=== PATIENT | male | born 1975 | race Caucasian/White ===

== ENCOUNTER 2017-07-22 22:43 | Emergency (ER) | payer MEDICAID, SELFPAY ==
[2017-07-22 22:44] VITALS: BP 139/87; PULSE 119; RESP 27; TEMP 38.1; O2SAT 95; BMI 45.0
--- NOTE | 2017-07-23 00:23 | ED.VISSUMM ---
- ER Visit Summary Date of Service: 07/23/17 Chief Complaint: [] Sore throat earache hoarce voice History of Present Illness: The patient is a 42 M [] complaining of sore throat. Laryngitis for the last 3 days gradual onset. No home treatment. He felt some chills. He does have sick contacts. He developed an abscess in his right posterior neck. He has had these in the past. He gets them frequently. No home treatment. No drainage. Physical Examination: Vital signs reviewed General: Well-nourished well-developed Head: Normocephalic atraumatic Eyes: Pupils equal round and reactive to light extraocular movements intact ENT: TMs clear no hemotympanum no trauma hoarse voice Neck: Nontender full range of motion Cardiovascular: Regular rate rhythm no murmurs normal S1-S2 Respiratory: No distress clear to auscultation bilaterally chest nontender Abdomen: Soft nontender nondistended normal bowel sounds no masses Back: Nontender no CVA tenderness Extremities: Nontender active range of motion ?4 extremities no trauma Skin: Clear neck has a boil. It measures 1 x 1. It is hard as a rock. There is no fluctuance. It is red. There is a central old ulceration. He has a small ulceration on the other side of his neck that is not infected. Neuro alert oriented cranial nerves II through XII intact normal strength sensation reflexes Test Results: [] Emergency Department Course and Treatment: This time I do not feel there is anything to and size. It is very hard. I do not feel the bloody drainage. He will use warm compresses to try to soften it up. Given Bactrim and Keflex. At this time I also think he has a laryngitis upper respiratory infection. Given oxycodone and Tylenol. This will have to run its course. Treatment Plan: [] Disposition: [] Impression: [] Upper respiratory infection with laryngitis Neck boil This note was generated with [employer] dictation software. It may contain incorrect words, spelling, and punctuation that were not noted in review of the chart prior to signing ED Disposition - Plan for ED Patient: Chief Complaint: General Illness Referrals: Care Physician,No Primary [Primary Care Provider] -
--- NOTE | 2017-07-23 00:26 | ED.DEP ---
ED Disposition - Plan for ED Patient: Disposition: Home or Assisted Living Chief Complaint: General Illness Instructions: ED Staph Infec Abx Tx Only, ED Laryngitis Prescriptions: Oxycodone HCl/Acetaminophen [Percocet 5/325] 1 tab PO Q6H PRN PRN 3 Days #12 tab PRN Reason: Pain Cephalexin [Keflex] 500 mg PO Q6 #40 capsule Smz/Tmp Ds [Bactrim Ds] 2 tablet PO BID #40 tablet Referrals: Care Physician,No Primary [Primary Care Provider] - Tyrone Samson [[facility]] -
[2017-07-23] MEDS: Acetaminophen 500 MG Tablet 1000 MG PO (00:40)
[2017-07-23] MEDS: Smz/Tmp Ds Tablet 2 TABLET PO (00:40)
[2017-07-23] MEDS: oxyCODONE 5 MG Tablet PO (00:40)
[2017-07-23] MEDS: Cephalexin 250 MG Capsule 500 MG PO (00:40)
[2017-07-23 00:41] VITALS: PULSE 76; RESP 20; O2SAT 97
== END 2017-07-23 00:42 | disposition home or self-care (01) ==
PROVIDERS: Emergency Provider Emergency Medicine
DX: J06.9 Acute upper respiratory infection, unspecified (principal); J04.0 Acute laryngitis; L02.12 Furuncle of neck; E66.9 Obesity, unspecified; Z72.0 Tobacco use
CPT/HCPCS: 99283

== ENCOUNTER 2019-04-25 20:44 | Emergency (ER) | payer SELFPAY ==
[2019-04-25 20:45] VITALS: BP 165/98; PULSE 107; RESP 22; TEMP 38.4; O2SAT 96; BMI 47.0
--- NOTE | 2019-04-25 21:03 | ED.VIS.GEN ---
History of Present Illness Chief Complaint: Cold Sx Informant: Patient Onset: Weeks - Week and a half Context: Gradual Onset Timing: Waxes and wanes Current Severity: Moderate Maximum Severity: Moderate Narrative: Patient presents with cough, congestion, fever, intermittent vomiting and diarrhea for the past week and a half. Patient states he will finally start to feel better only to relapse and get worsening symptoms again. He is coughing up yellow sputum. He has been taking Mucinex. - Past Medical History (1) Sleep apnea Status: Chronic (2) Kidney stone Status: Resolved (3) Anxiety Status: Chronic Past Medical History - Allergies and Home Meds Allergies/Adverse Reactions: Allergies No Known Allergies Allergy (Verified 07/22/17 22:43) Primary Care Physician: Care Physician,No Primary [Primary Care Provider] - Prior records reviewed: Yes Smoking Status: Current some day smoker Review of Systems General: Reports: Fever Eyes: Denies: Visual changes - bilaterally ENT: Reports: Rhinorrhea, Sore throat. Denies: Bilateral ear pain Cardiovascular: Denies: Chest pain Respiratory: Reports: Dyspnea, Cough, - - Occasional wheezing Gastrointestinal: Reports: Nausea, Vomiting, Diarrhea Genitourinary: Denies: Dysuria Musculoskeletal: Denies: Swelling, Extremity Pain Skin: Denies: Rash Neurological: Denies: Headache Psych: Denies: Depression Allergy: Denies: Uticaria Physical Exam Vital Signs/Narrative: Vital Signs Temp Pulse Resp BP Pulse Ox 04/25/19 20:45 101.1 F H 107 H 22 H 165/98 H 96 Inital Vital Signs reviewed: Yes General: Well nourished, Well developed Head: Normocephalic Eyes: Perrl, EOMI ENT: Moist mucous membranes, TM's clear, - - 1+ tonsils. Posterior pharyngeal drainage. Neck: Supple Cardiovascular: Tachycardia Respiratory: No distress, CTA bilaterally Abdomen: Soft, Nontender, Hypoactive bowel sounds Extremities: Nontender Skin: Normal color Neurological: Alert, Oriented x3 Psychological: Normal affect Diagnostic/Tx/Re-eval Impressions Chest X-Ray 04/25/19 21:32 IMPRESSION: 1. Left upper lobe pneumonia. 2. Mild cardiac enlargement. Electronically Signed: Kari Collins MD at 22:01 EST Tel , Service support , 04/25/19 21:32 Chest PA and Lateral [RAD] Stat Laboratory Results 04/25/19 04/25/19 21:15 21:15 WBC 7.7 RBC 4.52 L Hgb 12.5 L Hct 39.1 L MCV 86.5 MCH 27.7 MCHC 32.0 RDW Std Deviation 46.6 H RDW Coeff of Adair 14.6 Plt Count 195 MPV 9.1 Immature Gran % (Auto) 0.400 Neut % (Auto) 78.6 H Lymph % (Auto) 12.3 L [place] % (Auto) 6.0 Eos % (Auto) 2.6 Baso % (Auto) 0.1 Absolute Neuts (auto) 6.1 Absolute Lymphs (auto) 0.95 Nucleated RBC % 0 Sodium 139 Potassium 4.3 Chloride 105 Carbon Dioxide 29.0 Anion Gap 5 BUN 16 Creatinine 0.96 Estim Creat Clear Calc 105.53 Est GFR (MDRD) Af Amer 108 Est GFR (MDRD) Non-Af 89 BUN/Creatinine Ratio 16.6 Glucose 111 H Calcium 8.1 L - EKG Initial EKG Interpretation: Sinus Rhythm - Sinus at 91 no acute ischemia. QTC is 447. - Medical Decision Making Patient is given Toradol, Zofran, Tylenol, and IV fluids. Chest x-ray results are reviewed with him. Radiologist believes there is an early left upper lobe infiltrate. He will be treated with a course of Levaquin, first dose given here. He was not tested for influenza as his symptoms of been ongoing for a week and a half. ED Disposition - Plan for ED Patient: Disposition: Home or Assisted Living Diagnosis: Pneumonia Instructions: PNEUMONIA (Adult) Prescriptions: Levofloxacin [Levaquin] 750 mg PO DAILY #4 tab Transmission Status: Pending to [facility] Referrals: Jaida Kwong MD [STAFF PHYSICIAN] - 1-2 Weeks
[2019-04-25] MEDS: Acetaminophen 500 MG Tablet 1000 MG PO (21:20)
[2019-04-25] MEDS: Ondansetron 4 MG/2 ML Vial IV (21:20)
[2019-04-25] MEDS: 0.9% Normal Saline 1,000 ML 1000 ML IV (21:20)
[2019-04-25] MEDS: Ketorolac 30 MG/ML Syringe IV (21:20)
[2019-04-25 21:25] LABS: Absolute Lymphocyte Count 0.95 X10^3/uL (0.83-4.51); Absolute Neutrophil Count 6.1 X10^3/uL (2.0-7.7); Basophil# 0.01 X10^3/uL; Basophil% 0.1 % (0-1); Eosinophils% 2.6 % (0-5); Hematocrit 39.1 % (40-54); Hemoglobin 12.5 g/dL (13.0-16.5); Lymphocyte # 0.95 X10^3/ul (4.0); Lymphocyte % 12.3 % (19-41); Mean Corpuscular Hgb 27.7 pg (27.0-32.0); Mean Corpuscular Volume 86.5 fL (80-94); Mean Platelet Vol. 9.1 fl (6.2-12.0); Monocyte# 0.46 X10^3/uL; NRBC Flagged by Analyzer 0 % (0-5); Neutrophil # 6.08 X10^3/uL (2.7-7.7); Neutrophil % 78.6 % (47-70); Platelet Count 195 K/mm3 (150-450); RBC Distribution Width CV 14.6 % (11.6-14.6); RBC Distribution Width SD 46.6 fl (35.1-43.9); Red Blood Count 4.52 M/mm3 (4.6-6.2); White Blood Count 7.7 K/mm3 (4.4-11.0)
--- NOTE | 2019-04-25 21:32 | RAD_ITS ---
STUDY: X-RAY CHEST REASON FOR EXAM: Male, 44 years old. Cough with congestion TECHNIQUE: PA and lateral chest. COMPARISON: None. FINDINGS: Suboptimal lateral view due to motion artifact. No pleural effusion. Hazy opacity in the left mid lung, suspicious for pneumonia. There is mild cardiac enlargement. Normal mediastinum and apolinar. Normal visualized pulmonary arteries. Normal visualized aortic arch and descending thoracic aorta. Mild thoracic spondylosis. Soft tissues and bony structures are otherwise unremarkable. RAD/Chest PA and Lateral IMPRESSION: 1. Left upper lobe pneumonia. 2. Mild cardiac enlargement. Electronically Signed: Kari Collins MD at 22:01 EST Tel , Service support ,
[2019-04-25 21:34] LABS: Anion Gap 5 (5-15); BUN 16 mg/dL (7-18); BUN/Creat Ratio 16.6 RATIO (10-20); Calcium,Total 8.1 mg/dL (8.5-10.1); Chloride 105 mmol/L (98-107); Creatinine, Serum 0.96 mg/dL (0.70-1.30); EST Glomerular Filtration Rate 89 mL/min (>60); Est Glom Filt Rate - Afr Amer 108 mL/min (>60); Estimated Creatinine Clearance 105.53 ml/min; Glucose 111 mg/dL (74-106); Potassium 4.3 mmol/L (3.5-5.1); Sodium Level 139 mmol/L (136-145)
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
[2019-04-25 22:18] VITALS: TEMP 37.7
[2019-04-25] MEDS: levoFLOXacin 750 MG Tablet PO (22:31)
== END 2019-04-25 22:33 | disposition home or self-care (01) ==
PROVIDERS: Emergency Provider Emergency Medicine
DX: J18.9 Pneumonia, unspecified organism (principal); I51.7 Cardiomegaly; Z87.442 Personal history of urinary calculi; F17.200 Nicotine dependence, unspecified, uncomplicated
CPT/HCPCS: 71046; 80048; 85025; 93005; 96361; 96374; 96375; 99284; J7030; J2405

== ENCOUNTER 2021-04-06 20:52 | Emergency (ER) | payer BC, SELFPAY ==
[2021-04-06 20:53] VITALS: BP 176/118; PULSE 120; RESP 20; TEMP 36.7; O2SAT 96; BMI 47.9
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
[2021-04-06 21:14] LABS: Absolute Lymphocyte Count 1.83 X10^3/uL (0.83-4.51); Absolute Neutrophil Count 5.3 X10^3/uL (2.0-7.7); Basophil# 0.04 X10^3/uL; Basophil% 0.5 % (0-1); Eosinophil# 0.17 X10^3/uL; Eosinophils% 2.2 % (0-5); Hemoglobin 13.6 g/dL (13.0-16.5); Lymphocyte # 1.83 X10^3/ul (0.83-4.51); Lymphocyte % 23.3 % (19-41); Mean Corp Hgb Conc 32.4 g/dL (32-36); Mean Corpuscular Hgb 27.4 pg (27.0-32.0); Mean Corpuscular Volume 84.5 fL (80-94); Mean Platelet Vol. 9.2 fl (6.2-12.0); Monocyte# 0.48 X10^3/uL; Monocyte% 6.1 % (0-10); NRBC Flagged by Analyzer 0 % (0-5); Neutrophil % 67.5 % (47-70); Platelet Count 326 K/mm3 (150-450); RBC Distribution Width CV 14.6 % (11.6-14.6); RBC Distribution Width SD 45.1 fl (35.1-43.9); Red Blood Count 4.97 M/mm3 (4.6-6.2); White Blood Count 7.9 K/mm3 (4.4-11.0)
[2021-04-06 21:22] LABS: International Normalized Ratio 0.9; Prothrombin Time (Protime)PT. 11.8 SECONDS (11.7-14.9)
[2021-04-06 21:33] LABS: AST(SGOT) 21 U/L (15-37); Alanine Aminotransfer ALT/SGPT 37 U/L (16-61); Albumin, Serum 3.6 g/dL (3.2-5.0); Alkaline Phosphatase 76 U/L (45-117); Anion Gap 6 (5-15); BUN 21 mg/dL (7-18); BUN/Creat Ratio 22.3 RATIO (10-20); Bilirubin, Direct 0.06 mg/dL (0.00-0.30); Calcium,Total 8.9 mg/dL (8.5-10.1); Chloride 105 mmol/L (98-107); Creatinine, Serum 0.94 mg/dL (0.70-1.30); EST Glomerular Filtration Rate 91 mL/min (>60); Est Glom Filt Rate - Afr Amer 110 mL/min (>60); Estimated Creatinine Clearance 105.48 ml/min; Globulin 4.7 g/dL (2.2-4.2); Glucose 138 mg/dL (74-106); Potassium 4.1 mmol/L (3.5-5.1); Protein, Total 8.3 g/dL (6.4-8.2); Sodium Level 139 mmol/L (136-145)
[2021-04-06] MEDS: 0.9% Normal Saline 1,000 ML 999 ML IV (22:11)
[2021-04-06] MEDS: fentaNYL 100 MCG/2 ML Ampul 25 MCG IV (22:15)
[2021-04-06] MEDS: Piperacil/Tazobactam 3.375 GM/50 ML ML IV (22:48)
[2021-04-06 22:57] VITALS: BP 116/90; PULSE 95; RESP 20; O2SAT 99
--- NOTE | 2021-04-06 23:48 | NURSING ---
[facility] HAD TO CANCEL [facility] DUE TO ANOTHER CALL. THEY ARE PROVIDING [facility] WHICH SHOULD BE HERE WITHIN AN HOUR.
[2021-04-07] VITALS: BP 163/99; PULSE 103; RESP 19; O2SAT 99
[2021-04-07] MEDS: Morphine 4 MG/ML Syringe IV (00:26)
== END 2021-04-07 01:40 | disposition short-term general hospital (02) ==
LOC: ED 21:41
PROVIDERS: Emergency Provider Student in an Organized Health Care Education/Training Program
DX: S31.639A Puncture wound without foreign body of abdominal wall, unspecified quadrant with penetration into peritoneal cavity, initial encounter (principal); X99.1XXA Assault by knife, initial encounter; Y93.9 Activity, unspecified; Y92.89 Other specified places as the place of occurrence of the external cause; Y99.8 Other external cause status; E66.9 Obesity, unspecified; J44.9 Chronic obstructive pulmonary disease, unspecified; Z87.891 Personal history of nicotine dependence
CPT/HCPCS: 71260; 74177; 80048; 80076; 82077; 85025; 85610; 86850; 86900; 86901; 93005; 96361; 96365; 96375; 99285; Q9967; A4216

== ENCOUNTER 2021-05-21 06:32 | Emergency (ER) | payer BC, SELFPAY ==
[2021-05-21 06:34] VITALS: BP 184/116; PULSE 102; RESP 23; TEMP 36.8; O2SAT 95; BMI 47.3
--- NOTE | 2021-05-21 06:40 | EKG12_ITS ---
Test Reason : SOB Blood Pressure : / mmHG Vent. Rate : 101 BPM Atrial Rate : 101 BPM P-R Int : 166 ms QRS Dur : 106 ms QT Int : 366 ms P-R-T Axes : 022 -15 027 degrees QTc Int : 474 ms Sinus tachycardia Inferior infarct , age undetermined Abnormal ECG Confirmed by MARI AEUGENIA IGLESIAS, AVIVA ([id number]), non linear editor JORGE FOSTER ([id number]) on 05/22/2021 10:14:07 AM Referred By: FARSHAD Confirmed By:AVIVA DEL CID MD
--- NOTE | 2021-05-21 06:40 | RAD_ITS ---
EXAM: XR Chest, 1 View CLINICAL INDICATION: 46 years old, Male; dyspnea TECHNIQUE: Frontal view of the chest. This report was created using [employer] report generation technology. COMPARISON: XR Chest dated 04/25/2019 FINDINGS: Lungs and pleural spaces: Mild bibasilar infiltrates or atelectasis. Shallow inspiration. No pneumothorax. No effusion. Heart: Unremarkable. Cardiac silhouette not enlarged. Mediastinum: Central airways and mediastinal contour are unremarkable. Bones/joints: Unremarkable. Soft tissues: Unremarkable. RAD/Chest 1 View (Portable) IMPRESSION: Mild bibasilar infiltrates or atelectasis. Electronically Signed: Wili Betts MD at 7:44 EST ,
[2021-05-21 06:44] VITALS: O2SAT 95
[2021-05-21 07:08] LABS: Absolute Lymphocyte Count 1.54 X10^3/uL (0.83-4.51); Absolute Neutrophil Count 6.2 X10^3/uL (2.0-7.7); Basophil# 0.03 X10^3/uL; Basophil% 0.3 % (0-1); Eosinophil# 0.28 X10^3/uL; Eosinophils% 3.3 % (0-5); Hematocrit 37.9 % (40-54); Hemoglobin 12.2 g/dL (13.0-16.5); Lymphocyte # 1.54 X10^3/ul (0.83-4.51); Lymphocyte % 17.9 % (19-41); Mean Corp Hgb Conc 32.2 g/dL (32-36); Mean Corpuscular Volume 83.8 fL (80-94); Mean Platelet Vol. 9.1 fl (6.2-12.0); Monocyte# 0.46 X10^3/uL; Monocyte% 5.4 % (0-10); NRBC Flagged by Analyzer 0 % (0-5); Neutrophil # 6.21 X10^3/uL (2.7-7.7); Neutrophil % 72.4 % (47-70); Platelet Count 274 K/mm3 (150-450); RBC Distribution Width CV 14.9 % (11.6-14.6); RBC Distribution Width SD 45.1 fl (35.1-43.9); Red Blood Count 4.52 M/mm3 (4.6-6.2); White Blood Count 8.6 K/mm3 (4.4-11.0)
[2021-05-21 07:15] VITALS: PULSE 108; RESP 28
[2021-05-21] MEDS: Albuterol 2.5 MG/3 ML VIAL.NEB. INHALATION (07:15)
[2021-05-21] MEDS: Ipratropium/Albuterol Sulfate 3 ML AMPUL.NEB 6 ML INHALATION (07:15)
[2021-05-21] MEDS: LORazepam 2 MG/ML Syringe 0.5 MG IV ×2 (07:16→08:03)
[2021-05-21] MEDS: MethylPREDNISolone 125 MG/2 ML Vial IV (07:16)
[2021-05-21 07:34] LABS: Anion Gap 6 (5-15); BUN 16 mg/dL (7-18); BUN/Creat Ratio 20.4 RATIO (10-20); Calcium,Total 8.4 mg/dL (8.5-10.1); Chloride 104 mmol/L (98-107); Creatinine, Serum 0.78 mg/dL (0.70-1.30); EST Glomerular Filtration Rate 112 mL/min (>60); Est Glom Filt Rate - Afr Amer 135 mL/min (>60); Estimated Creatinine Clearance 127.12 ml/min; Glucose 173 mg/dL (74-106); Potassium 3.8 mmol/L (3.5-5.1); Sodium Level 135 mmol/L (136-145); Troponin-I HS 15 pg/mL (3.0-78.0)
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
--- NOTE | 2021-05-21 07:45 | EDS_ITS ---
HPI History of Present Illness Chief Complaint: Shortness of Breath Narrative Narrative: Patient is a 46-year-old male who states that he had surgery for internal bleeding about 5 weeks ago. He states that he returned to work about 1 week ago and after that developed some nasal congestion and sore throat. He states this has progressed to cough and this morning shortness of breath. He states he got to the point where he felt like he was going to pass out and secondary to this called EMS to bring him in for evaluation. He states he is vaccinated against Covid and he denies any smoking or vaping history and denies any need for supplemental oxygen. PFSH PFSH Home Medications albuterol sulfate [Ventolin HFA] 1 - 2 puff INHALATION Q4H PRN PRN #1 device 05/21/21 [Rx Last Taken Unknown] azelastine 2 spray INTRANASAL BID #30 ml 05/21/21 [Rx Last Taken Unknown] prednisone 40 mg PO DAILY 5 Days #10 tab 05/21/21 [Rx Last Taken Unknown] promethazine-codeine 5 ml PO Q6H PRN 7 Days #140 ml 05/21/21 [Rx Last Taken Unknown] Allergy/AdvReac Type Severity Reaction Status Date / Time sulfamethoxazole Allergy Hives Verified 04/06/21 20:53 [From Bactrim] trimethoprim [From Bactrim] Allergy Hives Verified 04/06/21 20:53 Social History Smoking Status: Former smoker ROS [facility] ED Constitutional Constitutional ED: Denies chills or fever(s) ENT ENT ED: Reports rhinorrhea and sore throat Cardiovascular Cardiovascular: Denies chest pain Respiratory/Chest Respiratory/Chest: Reports cough and dyspnea Gastrointestinal Gastrointestinal: Denies abdominal pain, diarrhea, nausea or vomiting Genitourinary Genitourinary ED: Denies dysuria Musculoskeletal Musculoskeletal: Denies myalgias Integumentary Denies rash Neurologic Neurologic: Denies headache(s) Psychiatric Psychiatric: Reports anxiety Hematologic/Lymphatic Hematologic/Lymphatic: Denies easy bleeding or easy bruising EXAM Physical Exam Const Vital Signs: 05/21/21 06:34 05/21/21 06:44 05/21/21 07:15 Temperature 98.2 F Temperature Source Temporal Pulse Rate 102 H 108 H Respiratory Rate 23 H 28 H Respiratory Effort Normal Non-Labored Respiratory Depth Normal Respiratory Pattern Normal Normal Blood Pressure 184/116 H Blood Pressure Mean 138 Pulse Ox 95 Oxygen Delivery Method Room Air Room Air Positive well nourished, well developed and obese General Appearance ED: well developed Nutritional Appearance: obese HEENT Reports moist mucous membranes HEENT Narrative: Patient has purulent discharge from bilateral nares and cobblestoning the posterior pharynx consistent with sinus drainage but no airway edema or compromise Eyes PERRL and EOMs intact bilaterally Neck supple and no JVD Neck Narrative: Positive anterior cervical lymphadenopathy noted Chest Wall palpation of chest normal Resp Resp Narrative: Patient has mild respiratory distress with tachypnea and slight accessory muscle use. Breath sounds are diminished throughout with diffuse inspiratory and expiratory wheezes. Cardio regular rhythm Rate: tachycardic and other Other Details: Radial pulses are +2-4 bilaterally are equal and symmetric GI normal to inspection, nondistended, normoactive bowel sounds, non-tender, non- distended and no masses GI Narrative: No voluntary guarding or rigidity no pulsatile mass Auscultation: normoactive bowel sounds Palpation: soft Extremity normal to inspection Extremity Narrative: No asymmetric edema no pitting edema negative Homans' sign bilaterally Neuro oriented x3 and CN's II-XII intact bilaterally Sensorium / Orientation: alert Motor Exam: strength 5/5 throughout Psych Psych Narrative: Nervous/anxious affect Mood & Affect: anxious Skin no rashes or lesions noted MDM MDM MDM Narrative Medical decision making narrative: Patient presented to the ER in mild respiratory distress with tachypnea and slight accessory muscle use. He also had wheezing consistent with an inflammatory process within the lung. With his congestion and sore throat there is concern he could have developed Covid or even a pneumonia so basic blood work with a rapid Covid swab and chest x-ray were ordered. Blood work revealed no clinically significant finding. Chest x- ray questioned infiltrate versus atelectasis. Patient is afebrile he does not have a white count and his respirations have been mildly shallow therefore I feel this is atelectasis and not bacterial infection. The patient had symptom improvement with steroids and breathing treatments but on reevaluation still feels short of breath. With his recent surgery about 5 weeks ago I did elect to perform a CTA of his chest to rule out pulmonary embolus. His troponin initially is normal but a delta troponin will be obtained as well based on his s ymptoms. I do believe that if the patient's CTA does not reveal any acute finding and his delta troponin is normal he is safe for discharge with symptomatic medications. Lab Data Attestation: I reviewed the patient's lab results. Labs: Laboratory Results - last 24 hr 05/21/21 05/21/21 07:00 07:00 WBC 8.6 RBC 4.52 L Hgb 12.2 L Hct 37.9 L MCV 83.8 MCH 27.0 MCHC 32.2 RDW Std Deviation 45.1 H RDW Coeff of Adair 14.9 H Plt Count 274 MPV 9.1 Immature Gran % (Auto) 0.700 Neut % (Auto) 72.4 H Lymph % (Auto) 17.9 L [place] % (Auto) 5.4 Eos % (Auto) 3.3 Baso % (Auto) 0.3 Absolute Neuts (auto) 6.2 Absolute Lymphs (auto) 1.54 Nucleated RBC % 0 Sodium 135 L Potassium 3.8 Chloride 104 Carbon Dioxide 25.0 Anion Gap 6 BUN 16 Creatinine 0.78 Estim Creat Clear Calc 127.12 Est GFR (MDRD) Af Amer 135 Est GFR (MDRD) Non-Af 112 BUN/Creatinine Ratio 20.4 H Glucose 173 H Calcium 8.4 L Magnesium 2.0 Troponin I High Sens 15 Radiography Diagnostic Testing: Clinical Impression(s) from Imaging Studies Chest X-Ray 05/21/21 06:40 IMPRESSION: Mild bibasilar infiltrates or atelectasis. Electronically Signed: Wili Betts MD at 7:44 EST , Discharge Plan Triage Chief Complaint: Shortness of Breath ED Provider: Meng You Dx/Rx/DC Orders Clinical Impression: Viral upper respiratory illness, Dyspnea Instructions: ED URI, Viral W/ Wheezing (Adult) Prescriptions: New azelastine 137 mcg (0.1 %) aerosol,spray 2 spray intranasal BID Qty: 30 RF: 0 prednisone 20 mg tablet 40 mg PO DAILY 5 Days Qty: 10 RF: 0 albuterol sulfate [Ventolin HFA] 90 mcg/actuation HFA aerosol inhaler 1 - 2 puff inhalation Q4H PRN PRN (Reason: Wheezing) Qty: 1 RF: 0 promethazine-codeine 6.25-10 mg/5 mL syrup 5 ml PO Q6H PRN (Reason: cough) 7 Days Qty: 140 RF: 0 Referrals: Jaida Kwong MD [STAFF PHYSICIAN] - 1 Week if not improving Disposition Disposition: Home, Self Care
[2021-05-21] MEDS: Sodium Chloride 3% 500 ML IV.SOLN. INHALATION (08:03)
[2021-05-21 08:10] LABS: BNP,B-Type NATRIURETIC PEPTIDE 19.9 pg/mL (0-100)
[2021-05-21 08:13] LABS: International Normalized Ratio 0.9
[2021-05-21 08:14] LABS: Partial Thromboplast Time 30.3 Seconds (24.1-36.2)
[2021-05-21 08:28] LABS: Troponin-I HS 16 pg/mL (3.0-78.0)
[2021-05-21 09:30] LABS: Troponin-I HS 17 pg/mL (3.0-78.0)
[2021-05-21 09:50] VITALS: BP 171/96; PULSE 94; RESP 20; O2SAT 94
== END 2021-05-21 09:57 | disposition home or self-care (01) ==
LOC: ED 08:40
PROVIDERS: Emergency Provider Emergency Medicine; PCP Family Medicine; Visit Provider Emergency Medicine
DX: J06.9 Acute upper respiratory infection, unspecified (principal); R06.00 Dyspnea, unspecified; Z87.891 Personal history of nicotine dependence; R06.2 Wheezing
CPT/HCPCS: 71045; 71275; 80048; 83735; 83880; 84484; 85025; 85610; 85730; 87426; 93005; 94640; 99284; J7050; Q9967; A4216

== ENCOUNTER 2021-05-28 10:15 | Emergency (ER) | payer BC, SELFPAY ==
[2021-05-28 10:16] VITALS: BP 157/116; PULSE 118; RESP 21; TEMP 36.4; O2SAT 96; BMI 34.4
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
--- NOTE | 2021-05-28 11:13 | EKG12_ITS ---
Test Reason : FOREIGN BODY Blood Pressure : / mmHG Vent. Rate : 100 BPM Atrial Rate : 100 BPM P-R Int : 142 ms QRS Dur : 112 ms QT Int : 356 ms P-R-T Axes : 029 -02 046 degrees QTc Int : 459 ms Normal sinus rhythm Normal ECG Confirmed by MARIA EUGENIA IGLESIAS, AVIVA ([id number]), department editor JORGE FOSTER ([id number]) on 05/29/2021 11:08:46 AM Referred By: MILY Confirmed By:AVIVA DEL CID MD
[2021-05-28 11:39] LABS: Absolute Lymphocyte Count 1.34 X10^3/uL (0.83-4.51); Basophil# 0.02 X10^3/uL; Basophil% 0.3 % (0-1); Eosinophils% 1.3 % (0-5); Hematocrit 41.1 % (40-54); Hemoglobin 13.5 g/dL (13.0-16.5); Lymphocyte # 1.34 X10^3/ul (0.83-4.51); Lymphocyte % 16.9 % (19-41); Mean Corp Hgb Conc 32.8 g/dL (32-36); Mean Corpuscular Hgb 27.9 pg (27.0-32.0); Mean Corpuscular Volume 84.9 fL (80-94); Mean Platelet Vol. 8.9 fl (6.2-12.0); Monocyte# 0.46 X10^3/uL; Monocyte% 5.8 % (0-10); NRBC Flagged by Analyzer 0 % (0-5); Neutrophil # 5.96 X10^3/uL (2.7-7.7); Neutrophil % 74.9 % (47-70); Platelet Count 378 K/mm3 (150-450); RBC Distribution Width CV 15.1 % (11.6-14.6); Red Blood Count 4.84 M/mm3 (4.6-6.2); White Blood Count 7.9 K/mm3 (4.4-11.0)
--- NOTE | 2021-05-28 11:45 | RAD_ITS ---
STUDY: X-RAY CHEST REASON FOR EXAM: Male, 46 years old. Dyspnea TECHNIQUE: Single AP portable view of the chest. COMPARISON: May 21, 2021 chest x-ray FINDINGS: There is a relative stable appearance of the lungs with increased interstitial markings in the lingula and left lower lobe. There is no demonstrated pleural abnormality. There is mild cardiac enlargement. Normal mediastinum and apolinar. Normal visualized pulmonary arteries. Normal visualized aortic arch and descending thoracic aorta. Normal visualized thoracic spine. Normal visualized ribs, clavicles, and shoulders. There is no demonstrated abnormality of the visualized soft tissue structures of the upper abdomen. RAD/Chest 1 View (Portable) IMPRESSION: Stable chest. Chronic appearing left lower lobe atelectasis and/or scarring. No visualized acute focal infiltrate. Mild cardiac enlargement. Electronically Signed: Ailyn Duarte MD at 12:03 EST ,
[2021-05-28 11:48] LABS: D-Dimer Quantitative (DVT/PE) 0.92 FEU/ug/m (0.27-0.49)
--- NOTE | 2021-05-28 11:50 | CT_ITS ---
STUDY: CTA CHEST REASON FOR EXAM: Male, 46 years old. Chest pain RADIATION DOSAGE (If Supplied By Facility): CTDIvol = ( 49.35 ) mGy, DLP = ( 852.81 ) mGycm TECHNIQUE: The examination was performed with the intravenous administration of IV 100mL [id number]-[id number]. Post-processing of the angiographic images was performed, with multiplanar reformation and 3D reconstruction. Individualized dose optimization techniques were used for this CT. COMPARISON: May 21, 2021 CT angiogram chest FINDINGS: Normal enhancement of the main pulmonary artery and right and left pulmonary arteries. Normal enhancement of the bilateral peripheral pulmonary arteries. There is no demonstrated pulmonary embolism. The ascending thoracic aorta measures 4 x 3.9 cm. It tapers towards the arch. There is no demonstrated aortic dissection. Normal heart and pericardium. Normal mediastinum. Normal hilar regions. Normal visualized trachea and bronchi. There are a few scattered areas of emphysematous change. There is a small focus of right lower lobe groundglass opacity. Normal pleura. Normal chest wall structures. There are degenerative changes of thoracic spine. Normal visualized upper abdomen. CT/CTA Chest W/WO Contrast IMPRESSION: Right lower lobe pneumonia. Given the patchy groundglass pattern could potentially consider a small focus of Covid pneumonia, if laboratory values were concordant. Tortuous mild aneurysmal dilatation of the descending thoracic aorta stable since prior study. Degenerative change of the thoracic spine. Electronically Signed: Ailyn Duarte MD at 12:32 EST ,
[2021-05-28 11:54] LABS: Anion Gap 5 (5-15); BUN 28 mg/dL (7-18); BUN/Creat Ratio 30.5 RATIO (10-20); Chloride 104 mmol/L (98-107); Creatinine, Serum 0.92 mg/dL (0.70-1.30); EST Glomerular Filtration Rate 94 mL/min (>60); Est Glom Filt Rate - Afr Amer 113 mL/min (>60); Estimated Creatinine Clearance 107.78 ml/min; Glucose 109 mg/dL (74-106); Potassium 4.2 mmol/L (3.5-5.1); Sodium Level 136 mmol/L (136-145); Troponin-I HS 15 pg/mL (3.0-78.0)
[2021-05-28 12:40] VITALS: BP 149/95; PULSE 86; RESP 17; O2SAT 98
[2021-05-28 13:12] VITALS: BP 175/106; PULSE 102; RESP 18; O2SAT 95
== END 2021-05-28 13:13 | disposition home or self-care (01) ==
PROVIDERS: Emergency Provider Physician Assistant; PCP Family Medicine; Visit Provider Physician Assistant
DX: J18.9 Pneumonia, unspecified organism (principal); Z87.891 Personal history of nicotine dependence; T18.108A Unspecified foreign body in esophagus causing other injury, initial encounter
CPT/HCPCS: 71045; 71275; 80048; 84484; 85025; 85379; 87426; 87635; 93005; 99284; Q9967; U0003; U0005

== ENCOUNTER 2022-01-25 03:30 | Inpatient (IN) | payer BC, SELFPAY ==
[2022-01-25] VITALS (25 sets, daily range): BP systolic 110–170; BP diastolic 69–128; PULSE 94–123; RESP 19–33; TEMP 37.2–39.4; O2SAT 90–98; BMI 51.0; BMI 50.2
--- NOTE | 2022-01-25 03:43 | RAD_ITS ---
STUDY: X-RAY CHEST REASON FOR EXAM: Male, 47 years old. Fever TECHNIQUE: Single AP portable view of the chest. COMPARISON: May 28, 2021 chest x-ray FINDINGS: The interstitial markings are minimally prominent similar to the prior study. There is no demonstrated pleural abnormality. There is mild cardiac enlargement. Normal mediastinum and apolinar. Normal visualized pulmonary arteries. Normal visualized aortic arch and descending thoracic aorta. Normal visualized thoracic spine. Normal visualized ribs, clavicles, and shoulders. There is no demonstrated abnormality of the visualized soft tissue structures of the upper abdomen. RAD/Chest 1 View (Portable) IMPRESSION: Mild cardiac enlargement. Similar appearing lung markings. No definitive focal infiltrate. Electronically Signed: Ailyn Duarte MD at 4:21 EDT ,
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
[2022-01-25] MEDS: 0.9% Normal Saline 1,000 ML 999 ML IV (04:02)
[2022-01-25 04:03] LABS: Absolute Neutrophil Count 12.3 X10^3/uL (2.0-7.7); Basophil# 0.04 X10^3/uL; Basophil% 0.3 % (0-1); Eosinophil# 0.05 X10^3/uL; Eosinophils% 0.4 % (0-5); Hematocrit 38.1 % (40-54); Hemoglobin 12.5 g/dL (13.0-16.5); Mean Corp Hgb Conc 32.8 g/dL (32-36); Mean Corpuscular Hgb 27.1 pg (27.0-32.0); Mean Corpuscular Volume 82.6 fL (80-94); Mean Platelet Vol. 9.4 fl (6.2-12.0); Monocyte# 0.53 X10^3/uL; NRBC Flagged by Analyzer 0 % (0-5); Neutrophil # 12.31 X10^3/uL (2.7-7.7); Neutrophil % 91.7 % (47-70); POSITIVE DIFFERENTIAL YES; Platelet Count 265 K/mm3 (150-450); RBC Distribution Width CV 15.2 % (11.6-14.6); RBC Distribution Width SD 45.4 fl (35.1-43.9); Red Blood Count 4.61 M/mm3 (4.6-6.2); White Blood Count 13.4 K/mm3 (4.4-11.0)
[2022-01-25] MEDS: Acetaminophen 500 MG Tablet 1000 MG PO (04:03)
[2022-01-25 04:21] LABS: Anisocytosis 1+; Differential Indicated SCAN CRITERIA MET
[2022-01-25 04:34] LABS: International Normalized Ratio 1.1; Prothrombin Time (Protime)PT. 13.4 SECONDS (11.7-14.9)
[2022-01-25 04:35] LABS: Partial Thromboplast Time 28.2 Seconds (24.1-36.2)
[2022-01-25 04:39] LABS: Lactic Acid 1.2 mmol/L (0.4-1.9)
[2022-01-25 04:41] LABS: ALB/GLOB Ratio 0.7 RATIO (0.9-2.4); AST(SGOT) 17 U/L (15-37); Alanine Aminotransfer ALT/SGPT 37 U/L (16-61); Albumin, Serum 3.4 g/dL (3.2-5.0); Alkaline Phosphatase 67 U/L (45-117); Anion Gap 6 (5-15); BUN 17 mg/dL (7-18); BUN/Creat Ratio 17.9 RATIO (10-20); Chloride 104 mmol/L (98-107); Creatinine, Serum 0.95 mg/dL (0.70-1.30); EST Glomerular Filtration Rate 90 mL/min (>60); Est Glom Filt Rate - Afr Amer 108 mL/min (>60); Estimated Creatinine Clearance 103.24 ml/min; Globulin 4.6 g/dL (2.2-4.2); Glucose 118 mg/dL (74-106); Potassium 3.8 mmol/L (3.5-5.1); Sodium Level 137 mmol/L (136-145)
[2022-01-25 04:48] LABS: Mucous, Urine 0 SEEN /hpf (<or=2+); Red Blood Cells-Urine 0 SEEN /hpf (0-5); Squamous Epithelial Cells - UA 0 SEEN /hpf (0-5)
[2022-01-25 04:49] LABS: Color, Urine Yellow (Yellow); Glucose, Dipstick Normal (Normal); Ketone-Dipstick Negative (Negative); Leukocyte Esterase-Dipstick 25 /ul (Negative); Nitrite-Dipstick Positive (Negative); Occult Blood-Urine 10 /ul (Negative); Protein-Dipstick 100 mg/dl (Negative); Specific Gravity, Urine 1.015 (1.002-1.030); Urine Bilirubin Dipstick Negative (Negative); Urine Clarity Sl. Cloudy (Clear); Urine Urobilinogen Normal (Normal)
[2022-01-25 04:55] LABS: Bacteria 3+ /hpf (None Seen); White Blood Cells 5-10 SEEN /hpf (0-5)
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
[2022-01-25] MEDS: Ceftriaxone 1 GM/50 ML BAG IV ×2 (05:49→23:45)
--- NOTE | 2022-01-25 07:55 | PN.HOSP_ITS ---
Subjective Subjective Patient is a 47-year-old gentleman who presented to the emergency department with fever. He was found to have rash on his left lower extremity and assessment of cellulitis made Objective Data Objective Data Vital Signs: Vital Signs Temp Pulse Resp BP Pulse Ox O2 Del Method 99.1 F 120 H 20 H 170/74 H 96 Room Air 01/25/22 06:12 01/25/22 06:12 01/25/22 06:12 01/25/22 06:12 01/25/22 06:12 01/25/22 06:36 Oxygen Delivery Method Room Air Weight: 168 kg Body Mass Index (BMI) 50.2 Intake & Output: Intake and Output for Last 24 Hours 01/23/22 01/24/22 01/25/22 23:59 23:59 23:59 Intake Total 1050 / 1050 Balance 1050 / 1050 Lab / Micro Data Result Diagrams: 01/25/22 03:50 01/25/22 04:15 Labs: Laboratory Results - last 24 hr 01/25/22 03:50: WBC 13.4 H, RBC 4.61, Hgb 12.5 L, Hct 38.1 L, MCV 82.6, MCH 27.1, MCHC 32.8, RDW Std Deviation 45.4 H, RDW Coeff of [place] 15.2 H, Plt Count 265, MPV 9.4, Immature Gran % (Auto) 0.600, Neut % (Auto) 91.7 H, Lymph % (Auto) 3.0 L, [place] % (Auto) 4.0, Eos % (Auto) 0.4, Baso % (Auto) 0.3, Absolute Neuts (auto) 12.3 H, Absolute Lymphs (auto) 0.40 L, Nucleated RBC % 0, Anisocytosis 1+ 01/25/22 03:50: PT Cancelled, INR Cancelled, APTT Cancelled 01/25/22 03:50: Sodium Cancelled, Potassium Cancelled, Chloride Cancelled, Carb on Dioxide Cancelled, Anion Gap Cancelled, BUN Cancelled, Creatinine Cancelled, Estim Creat Clear Calc Cancelled, Est GFR (MDRD) Af Amer Cancelled, Est GFR (MDRD) Non-Af Cancelled, BUN/Creatinine Ratio Cancelled, Glucose Cancelled, Calcium Cancelled, Total Bilirubin Cancelled, AST Cancelled, ALT Cancelled, Alkaline Phosphatase Cancelled, Total Protein Cancelled, Albumin Cancelled, Globulin Cancelled, Albumin/Globulin Ratio Cancelled 01/25/22 03:50: Lactic Acid 1.2 01/25/22 04:15: PT 13.4, INR 1.1, APTT 28.2 01/25/22 04:15: Sodium 137, Potassium 3.8, Chloride 104, Carbon Dioxide 27.0, Anion Gap 6, BUN 17, Creatinine 0.95, Estim Creat Clear Calc 103.24, Est GFR (MDRD) Af Amer 108, Est GFR (MDRD) Non-Af 90, BUN/Creatinine Ratio 17.9, Glucose 118 H, Calcium 9.0, Total Bilirubin 0.60, AST 17, ALT 37, Alkaline Phosphatase 67, Total Protein 8.0, Albumin 3.4, Globulin 4.6 H, Albumin/Globulin Ratio 0.7 L 01/25/22 04:35: Urine Color Yellow, Urine Clarity Sl. Cloudy, Urine pH 6.0, Ur Specific [place] 1.015, Urine Protein 100 H, Urine Glucose (UA) Normal, Urine Ketones Negative, Urine Occult Blood 10 H, Urine Nitrite Positive H, Urine Bilirubin Negative, Urine Urobilinogen Normal, Ur Leukocyte Esterase 25 H, Urine RBC 0 SEEN, Urine WBC 5-10 SEEN, Ur Squamous Epith Cells 0 SEEN, Urine Bacteria 3+, Urine Mucus 0 SEEN Micro: Microbiology 01/25/22 03:55 Nasal Secretion SARS-CoV-2 Antigen (Rapid) - Final Radiography Diagnostic Testing: Radiology Impression Chest X-Ray 01/25/22 03:43 IMPRESSION: Mild cardiac enlargement. Similar appearing lung markings. No definitive focal infiltrate. Electronically Signed: Ailyn Duarte MD at 4:21 EDT Reading Location ID and State: [facility] [place] Tel , Service support , Rhythm Strip Rhythm Strip: Sinus Tach Rate: 118 Ectopy: PVC(s) Physical Exam Narrative GENERAL: Lethargic but easily arousable HEENT: Atraumatic; normocephalic EYES; Anicteric, Normal Conjunctiva NECK; supple, normal thyroid, RESPIRATORY: Diminished to auscultation CARDIOVASCULAR: Regular S1 S2, GI: soft, normoactive bowel sounds, : No Renal angle tenderness; EXTREMITIES: Area of erythema involving the right lower extremity with some excoriation MUSCULOSKELETAL: no muscle wasting NEURO: no lateralizing signs. SKIN: As described above PSYCH; Flat affect Assessment & Plan Assessment/Plan (1) Cellulitis: PLAN: Plan Patient is a 47-year-old gentleman who presented to the emergency department with fever. He was found to have rash on his left lower extremity and assessment of cellulitis made 1. Cellulitis involving the left lower extremity ? Suspected to be strep admitted to regular nursing floor started on Rocephin ? Patient continues to spike fever added vancomycin to therapy sent for blood cultures 2. Acute cystitis ? Culture sent patient is on Rocephin 3. Anxiety disorder with panic attack ? Patient is on Atarax as needed 4. Class III obesity with BMI of 50.2 ? Weight loss advised 5. Obesity hypoventilation syndrome ? Patient had apparently been prescribed BiPAP at night he has however not been compliant counseled on the need to use his BiPAP as prescribed 6. DVT prophylaxis ? Lovenox Total time spent evaluating patient including initial diagnostic work-up, in itial orders patient examination and subsequent review with subsequent adjustment in therapy; 45 minutes Charges/Coding Procedures Hospitalists Procedures: [id number] Prolonged InPt Service; first hour
[2022-01-25] MEDS: 0.9% Saline Lock 10 ML Syringe IV (08:25)
[2022-01-25] MEDS: Ondansetron 4 MG/2 ML Vial IV (08:59)
[2022-01-25] MEDS: Acetaminophen 325 MG Tablet 650 MG PO ×3 (09:17→21:03)
[2022-01-25] MEDS: NYSTATIN 500,000 UNIT/5 ML UDC 500000 UNIT PO ×4 (09:48→20:59)
[2022-01-25] MEDS: Enoxaparin 40 MG/0.4 ML Syringe SC ×2 (09:58→20:59)
--- NOTE | 2022-01-25 11:16 | PCM.RX.CS ---
Consult Pharmacy has been consulted to manage selected antiobiotic: Vancomycin Type of Consult: New start Suspected Infection: Skin/Soft tissue Labs: Sodium 137 mmol/L (136-145) 01/25/22 04:15 Potassium 3.8 mmol/L (3.5-5.1) 01/25/22 04:15 Chloride 104 mmol/L (98-107) 01/25/22 04:15 Carbon Dioxide 27.0 mmol/L (21.0-32.0) 01/25/22 04:15 Anion Gap 6 (5-15) 01/25/22 04:15 BUN 17 mg/dL (7-18) 01/25/22 04:15 Creatinine 0.95 mg/dL (0.70-1.30) 01/25/22 04:15 Est GFR (MDRD) Af Amer 108 mL/min (>60) 01/25/22 04:15 Est GFR (MDRD) Non-Af 90 mL/min (>60) 01/25/22 04:15 BUN/Creatinine Ratio 17.9 RATIO (10-20) 01/25/22 04:15 Glucose 118 mg/dL (74-106) H 01/25/22 04:15 Microbiology: Microbiology 01/25/22 03:55 Nasal Secretion SARS-CoV-2 Antigen (Rapid) - Final Goal Trough: 10-15 mcg/mL Pharmacy Plan for Drug Dosing: NEW START IV VANCOMYCIN Consulting Physician: Dr. Segura Indication: SSTI/ wound Goal Trough: 10-15 SrCr: 0.95 CrCl: 151 mL/min (using AdjBW of 113.8kg) Comments: 2000mg IV x1 initial dose ordered and administered 01/25/22 @0951 Vancomycin Dose: 1750mg IV Q12hr to start 01/25/22 @2100 Pending Level: 01/26/22 @2030, prior to 4th total dose per protocol Pharmacy Service will continue to monitor and adjust dosing as required.
--- NOTE | 2022-01-25 12:08 | CASEMGMT ---
VALERIANO MATSON Assessment: Face to Face with pt for initial transition planning/care coordination assessment. VALERIANO MATSON introduced self and role at [facility], pt voices understanding and consents to assessment. Pt is O x4 and answers all questions appropriately at this time, although drowsy and had to waken several times during assessment. Care providers, pharmacy, and demographics verified/updated. Admitting Dx: UTI PCP:[facility] Specialists:Pt denies. Preferred Pharmacy: [facility] Insurance: [employer] Pres[employer] Benefit: yes LW/HPOA: Pt denies having a LW/DPOA and denies need for info regarding AD. LNOK: Yesi Oden dtr Living Arrangements: Pt lives with father in law in an upstairs apartment with 13 steps to enter with a rail. Pt reports he is I in ADL's and denies concerns at home. Transportation: Pt does not drive and relies on family and friends for transportation. DME/HHC/SNF: Pt states he should wear a pap but chooses not to. Pt denies having any DME, does not use AD. Pt has had [facility] in the past and denies SNF stays. Pt states no concerns with going home at time of dc. Pt states no further concerns/needs. CM to follow. Advised pt to ask CM if any further question/concerns/needs arise, voices understanding. Pt Goal: Home Plan: Home
[2022-01-25 12:15] LABS: HIV - WCH Non-Reactive (Nonreactive)
--- NOTE | 2022-01-25 15:49 | PCM.PN.BLA ---
Sepsis Attestation Sepsis Alert: Yes Sepsis Attestation: Sepsis Ruled Out Date exam was performed: 01/25/22 Time exam was performed: 16:56 Possible Source of Sepsis: Genitourinary and Skin/soft tissue Sepsis Organ Dysfunction Criteria Present: None
[2022-01-25] MEDS: hydrOXYzine 10 MG Tablet PO (15:59)
[2022-01-25 16:05] LABS: Lactic Acid 1.4 mmol/L (0.4-1.9)
[2022-01-26] VITALS (9 sets, daily range): BP systolic 115–179; BP diastolic 54–103; PULSE 80–100; RESP 16–22; TEMP 36.9–37.4; O2SAT 91–99
[2022-01-26 05:42] LABS: Absolute Lymphocyte Count 0.91 X10^3/uL (0.83-4.51); Absolute Neutrophil Count 8.5 X10^3/uL (2.0-7.7); Basophil# 0.03 X10^3/uL; Basophil% 0.3 % (0-1); Eosinophil# 0.01 X10^3/uL; Eosinophils% 0.1 % (0-5); Hematocrit 39.2 % (40-54); Hemoglobin 12.4 g/dL (13.0-16.5); Lymphocyte # 0.91 X10^3/ul (0.83-4.51); Lymphocyte % 9.2 % (19-41); Mean Corp Hgb Conc 31.6 g/dL (32-36); Mean Corpuscular Hgb 26.9 pg (27.0-32.0); Mean Platelet Vol. 9.3 fl (6.2-12.0); Monocyte# 0.43 X10^3/uL; Monocyte% 4.3 % (0-10); NRBC Flagged by Analyzer 0 % (0-5); Neutrophil # 8.47 X10^3/uL (2.7-7.7); Neutrophil % 85.6 % (47-70); Platelet Count 237 K/mm3 (150-450); RBC Distribution Width CV 15.5 % (11.6-14.6); RBC Distribution Width SD 48.2 fl (35.1-43.9); Red Blood Count 4.61 M/mm3 (4.6-6.2); White Blood Count 9.9 K/mm3 (4.4-11.0)
[2022-01-26 06:35] LABS: Anion Gap 7 (5-15); BUN 17 mg/dL (7-18); BUN/Creat Ratio 17.8 RATIO (10-20); Calcium,Total 8.5 mg/dL (8.5-10.1); Chloride 102 mmol/L (98-107); Creatinine, Serum 0.96 mg/dL (0.70-1.30); EST Glomerular Filtration Rate 89 mL/min (>60); Est Glom Filt Rate - Afr Amer 108 mL/min (>60); Estimated Creatinine Clearance 102.16 ml/min; Glucose 104 mg/dL (74-106); Sodium Level 136 mmol/L (136-145)
--- NOTE | 2022-01-26 07:58 | PCM.PN.HOSP ---
Subjective Subjective He had significant tachycardia as well as fever the day prior. Repeated sepsis screen lactic acid came back again normal. Did broaden patient antibiotic therapy. Objective Data Objective Data Vital Signs: Vital Signs Temp Pulse Resp BP Pulse Ox O2 Del Method O2 Flow Rate 98.5 F 100 20 H 115/54 L 91 Nasal Cannula 2 01/26/22 03:17 01/26/22 03:17 01/26/22 03:17 01/26/22 03:17 01/26/22 07:51 01/26/22 07:51 01/25/22 22:44 Oxygen Flow Rate (L/min) 2 Oxygen Delivery Method Nasal Cannula Weight: 168 kg Body Mass Index (BMI) 50.2 Intake & Output: Intake and Output for Last 24 Hours 01/24/22 01/25/22 01/26/22 23:59 23:59 23:59 Intake Total 6645 / 7165 50 / 50 Balance 2475 / 2475 50 / 50 Lab / Micro Data Result Diagrams: 01/26/22 05:17 01/26/22 05:17 Labs: Laboratory Results - last 24 hr 01/25/22 11:01: HIV 1&2 Antibody Non-Reactive 01/25/22 15:30: Lactic Acid 1.4 01/26/22 05:17: WBC 9.9, RBC 4.61, Hgb 12.4 L, Hct 39.2 L, MCV 85.0, MCH 26.9 L, MCHC 31.6 L, RDW Std Deviation 48.2 H, RDW Coeff of [place] 15.5 H, Plt Count 237, MPV 9.3, Immature Gran % (Auto) 0.500, Neut % (Auto) 85.6 H, Lymph % (Auto) 9.2 L, [place] % (Auto) 4.3, Eos % (Auto) 0.1, Baso % (Auto) 0.3, Absolute Neuts (auto) 8.5 H, Absolute Lymphs (auto) 0.91, Nucleated RBC % 0 01/26/22 05:17: Sodium 136, Potassium 4.0, Chloride 102, Carbon Dioxide 27.0, Anion Gap 7, BUN 17, Creatinine 0.96, Estim Creat Clear Calc 102.16, Est GFR (MDRD) Af Amer 108, Est GFR (MDRD) Non-Af 89, BUN/Creatinine Ratio 17.8, Glucose 104, Calcium 8.5 Micro: Microbiology 01/25/22 03:55 Nasal Secretion SARS-CoV-2 Antigen (Rapid) - Final Rhythm Strip Rhythm Strip: Sinus Tach Rate: 118 Ectopy: PVC(s) Physical Exam Narrative GENERAL: Lethargic but easily arousable HEENT: Atraumatic; normocephalic EYES; Anicteric, Normal Conjunctiva NECK; supple, normal thyroid, RESPIRATORY: Diminished to auscultation CARDIOVASCULAR: Regular S1 S2, GI: soft, normoactive bowel sounds, : No Renal angle tenderness; EXTREMITIES: Area of erythema involving the right lower extremity with some excoriation MUSCULOSKELETAL: no muscle wasting NEURO: no lateralizing signs. SKIN: As described above PSYCH; Flat affect Assessment & Plan Assessment/Plan (1) Cellulitis: PLAN: Plan Patient is a 47-year-old gentleman who presented to the emergency department with fever. He was found to have rash on his left lower extremity and assessment of cellulitis made 1. Cellulitis involving the left lower extremity ? Suspected to be strep admitted to regular nursing floor started on Rocephin ? Patient continues to spike fever added vancomycin to therapy sent for blood cultures -01/26/2022He had significant tachycardia as well as fever the day prior. Repeated sepsis screen lactic acid came back again normal. Did broaden patient antibiotic therapy. 2. Acute cystitis ? Culture sent patient is on Rocephin ? 01/26/2022 urine cultures pending 3. Anxiety disorder with panic attack ? Patient is on Atarax as needed 4. Class III obesity with BMI of 50.2 ? Weight loss advised 5. Obesity hypoventilation syndrome ? Patient had apparently been prescribed BiPAP at night he has however not been compliant counseled on the need to use his BiPAP as prescribed 6. DVT prophylaxis ? Lovenox Charges/Coding Visit Charges Inpatient E&M: 85931 Subs Hosp L2
[2022-01-26] MEDS: Enoxaparin 40 MG/0.4 ML Syringe SC ×2 (08:52→21:17)
[2022-01-26] MEDS: NYSTATIN 500,000 UNIT/5 ML UDC 500000 UNIT PO ×4 (08:52→21:17)
[2022-01-26] MEDS: 0.9% Saline Lock 10 ML Syringe IV ×3 (08:54→21:18)
[2022-01-26] MEDS: Acetaminophen 325 MG Tablet 650 MG PO ×2 (09:02→17:22)
[2022-01-26] MEDS: Ceftriaxone 1 GM/50 ML BAG IV ×2 (11:24→21:17)
[2022-01-26] MEDS: hydrOXYzine 10 MG Tablet PO (17:20)
[2022-01-26 21:04] LABS: Vancomycin, Trough Level 10.4 ug/mL (5.0-15.0)
[2022-01-27] VITALS (7 sets, daily range): BP systolic 124–154; BP diastolic 75–116; PULSE 65–86; RESP 18–20; TEMP 36.4–37.1; O2SAT 91–99
--- NOTE | 2022-01-27 03:16 | PCM.RX.CS ---
Consult Pharmacy has been consulted to manage selected antiobiotic: Vancomycin Type of Consult: Follow-up Labs: Sodium 136 mmol/L (136-145) 01/26/22 05:17 Potassium 4.0 mmol/L (3.5-5.1) 01/26/22 05:17 Chloride 102 mmol/L (98-107) 01/26/22 05:17 Carbon Dioxide 27.0 mmol/L (21.0-32.0) 01/26/22 05:17 Anion Gap 7 (5-15) 01/26/22 05:17 BUN 17 mg/dL (7-18) 01/26/22 05:17 Creatinine 0.96 mg/dL (0.70-1.30) 01/26/22 05:17 Est GFR (MDRD) Af Amer 108 mL/min (>60) 01/26/22 05:17 Est GFR (MDRD) Non-Af 89 mL/min (>60) 01/26/22 05:17 BUN/Creatinine Ratio 17.8 RATIO (10-20) 01/26/22 05:17 Glucose 104 mg/dL (74-106) 01/26/22 05:17 Vancomycin Trough 10.4 ug/mL (5.0-15.0) 01/26/22 20:25 Microbiology: Microbiology 01/25/22 04:35 Urine, Random Urine Culture - Preliminary Staphylococcus species 01/25/22 03:55 Nasal Secretion SARS-CoV-2 Antigen (Rapid) - Final Goal Trough: 10-15 mcg/mL Pharmacy Plan for Drug Dosing: Pharmacy Service will continue to monitor and adjust dosing as required. TROUGH 10.4 @ 12 HRS (GOAL 10-15) NO CHANGES, FOLLOW UP TROUGH IN 2 DAYS Follow-Up Labs: Trough Vancomycin Labs to be done on [date and time ordered]: 01/28 @ 4586
--- NOTE | 2022-01-27 07:41 | PCM.PN.HOSP ---
Subjective Subjective Patient urine cultures came back positive for Staphylococcus species. Final identification and sensitivities pending. Patient blood pressure remains significantly elevated. Patient started on HCTZ Objective Data Objective Data Vital Signs: Vital Signs Temp Pulse Resp BP Pulse Ox O2 Del Method O2 Flow Rate 98.7 F 86 18 130/75 H 99 Nasal Cannula 2 01/27/22 02:20 01/27/22 02:20 01/27/22 02:20 01/27/22 02:20 01/27/22 02:20 01/27/22 02:20 01/27/22 02:20 Oxygen Flow Rate (L/min) 2 Oxygen Delivery Method Nasal Cannula Weight: 168 kg Body Mass Index (BMI) 50.2 Intake & Output: Intake and Output for Last 24 Hours 01/25/22 01/26/22 01/27/22 23:59 23:59 23:59 Intake Total 2475 / 2475 2335 / 2335 535 / 535 Balance 2475 / 2475 2335 / 2335 535 / 535 Lab / Micro Data Result Diagrams: 01/26/22 05:17 01/26/22 05:17 Labs: Laboratory Results - last 24 hr 01/26/22 20:25: Vancomycin Trough 10.4 Micro: Microbiology 01/25/22 04:35 Urine, Random Urine Culture - Preliminary Staphylococcus species 01/25/22 03:55 Nasal Secretion SARS-CoV-2 Antigen (Rapid) - Final Rhythm Strip Rhythm Strip: Sinus Tach Rate: 118 Ectopy: PVC(s) Physical Exam Narrative GENERAL: Lethargic but easily arousable HEENT: Atraumatic; normocephalic EYES; Anicteric, Normal Conjunctiva NECK; supple, normal thyroid, RESPIRATORY: Diminished to auscultation CARDIOVASCULAR: Regular S1 S2, GI: soft, normoactive bowel sounds, : No Renal angle tenderness; EXTREMITIES: Area of erythema involving the right lower extremity with some excoriation MUSCULOSKELETAL: no muscle wasting NEURO: no lateralizing signs. SKIN: As described above PSYCH; Flat affect Assessment & Plan Assessment/Plan (1) Cellulitis: PLAN: Plan Patient is a 47-year-old gentleman who presented to the emergency department with fever. He was found to have rash on his left lower extremity and assessment of cellulitis made 1. Cellulitis involving the left lower extremity ? Suspected to be strep admitted to regular nursing floor started on Rocephin ? Patient continues to spike fever added vancomycin to therapy sent for blood cultures -01/26/2022He had significant tachycardia as well as fever the day prior. Repeated sepsis screen lactic acid came back again normal. Did broaden patient antibiotic therapy. ? 01/27/2022; patient urine cultures came back positive for Staphylococcus species. Final identification and sensitivities pending. Patient remains on vancomycin 2. Acute cystitis ? Culture sent patient is on Rocephin ? 01/26/2022 urine cultures pending 3. Anxiety disorder with panic attack ? Patient is on Atarax as needed 4. Class III obesity with BMI of 50.2 ? Weight loss advised 5. Obesity hypoventilation syndrome ? Patient had apparently been prescribed BiPAP at night he has however not been compliant counseled on the need to use his BiPAP as prescribed 6. DVT prophylaxis ? Lovenox 7. Elevated blood pressure ? Patient has a known hypertensive started on HCTZ Charges/Coding Visit Charges Inpatient E&M: 86780 Subs Hosp L2
[2022-01-27] MEDS: Furosemide 100 MG/10 ML Vial 80 MG IV (10:44)
[2022-01-27] MEDS: hydroCHLOROthiazide 25 MG Tablet PO (10:47)
[2022-01-27] MEDS: amLODIPine 10 MG Tablet PO (10:47)
[2022-01-27] MEDS: Enoxaparin 40 MG/0.4 ML Syringe SC ×2 (10:47→21:22)
[2022-01-27] MEDS: NYSTATIN 500,000 UNIT/5 ML UDC 500000 UNIT PO ×4 (10:48→21:22)
[2022-01-27] MEDS: Ceftriaxone 1 GM/50 ML BAG IV (14:18)
[2022-01-27] MEDS: 0.9% Saline Lock 10 ML Syringe IV (14:53)
[2022-01-27] MEDS: Acetaminophen 325 MG Tablet 650 MG PO (20:01)
[2022-01-28 02:20] VITALS: BP 119/92; PULSE 76; RESP 18; TEMP 36.6; O2SAT 98
[2022-01-28] MEDS: levoFLOXacin 750 MG Tablet PO (05:08)
--- NOTE | 2022-01-28 07:37 | PN.HOSP_ITS ---
Subjective Subjective Patient seen patient tolerated oral antibiotics plan is for patient to be assessed for possible discharge Objective Data Objective Data Vital Signs: Vital Signs Temp Pulse Resp BP Pulse Ox O2 Del Method O2 Flow Rate 97.8 F 76 18 119/92 H 98 Room Air 2 01/28/22 02:20 01/28/22 02:20 01/28/22 02:20 01/28/22 02:20 01/28/22 02:20 01/28/22 02:20 01/28/22 02:20 Oxygen Flow Rate (L/min) 2 Oxygen Delivery Method Room Air Weight: 168 kg Body Mass Index (BMI) 50.2 Intake & Output: Intake and Output for Last 24 Hours 01/26/22 01/27/22 01/28/22 23:59 23:59 23:59 Intake Total 2335 / 2335 1120 / 1120 Output Total 1000 / 1000 Balance 2335 / 2335 120 / 120 Lab / Micro Data Result Diagrams: 01/26/22 05:17 01/26/22 05:17 Micro: Microbiology 01/25/22 03:50 Blood Culture (Wb) - Right Hand Blood Culture - Preliminary No growth in 48 hours. 01/25/22 03:50 Blood Culture (Wb) - Left Forearm Blood Culture - Preliminary No growth in 48 hours. 01/25/22 04:35 Urine, Random Urine Culture - Final Staphylococcus epidermidis 01/25/22 03:55 Nasal Secretion SARS-CoV-2 Antigen (Rapid) - Final Rhythm Strip Rhythm Strip: Sinus Tach Rate: 118 Ectopy: PVC(s) Physical Exam Narrative GENERAL: Lethargic but easily arousable HEENT: Atraumatic; normocephalic EYES; Anicteric, Normal Conjunctiva NECK; supple, normal thyroid, RESPIRATORY: Diminished to auscultation CARDIOVASCULAR: Regular S1 S2, GI: soft, normoactive bowel sounds, : No Renal angle tenderness; EXTREMITIES: Area of erythema involving the right lower extremity with some excoriation MUSCULOSKELETAL: no muscle wasting NEURO: no lateralizing signs. SKIN: As described above PSYCH; Flat affect Assessment & Plan Assessment/Plan (1) Cellulitis: PLAN: Plan Patient is a 47-year-old gentleman who presented to the emergency department with fever. He was found to have rash on his left lower extremity and assessment of cellulitis made 1. Cellulitis involving the left lower extremity ? Suspected to be strep admitted to regular nursing floor started on Rocephin ? Patient continues to spike fever added vancomycin to therapy sent for blood cultures -01/26/2022He had significant tachycardia as well as fever the day prior. Repeated sepsis screen lactic acid came back again normal. Did broaden patient antibiotic therapy. ? 01/27/2022; patient urine cultures came back positive for Staphylococcus species. Final identification and sensitivities pending. Patient remains on vancomycin -01/28/2022; patient switched to Levaquin following receipt of final iden tification and sensitivities 2. Acute cystitis ? Culture sent patient is on Rocephin ? 01/26/2022 urine cultures pending 3. Anxiety disorder with panic attack ? Patient is on Atarax as needed 4. Class III obesity with BMI of 50.2 ? Weight loss advised 5. Obesity hypoventilation syndrome ? Patient had apparently been prescribed BiPAP at night he has however not been compliant counseled on the need to use his BiPAP as prescribed 6. DVT prophylaxis ? Lovenox 7. Elevated blood pressure ? Patient has a known hypertensive started on HCTZ Charges/Coding Visit Charges Inpatient E&M: 02425 Subs Hosp L2
[2022-01-28 08:00] VITALS: BP 128/82; PULSE 78; RESP 18; TEMP 36.6; O2SAT 97
[2022-01-28] MEDS: NYSTATIN 500,000 UNIT/5 ML UDC 500000 UNIT PO (08:10)
[2022-01-28] MEDS: hydroCHLOROthiazide 25 MG Tablet PO (08:10)
[2022-01-28] MEDS: Enoxaparin 40 MG/0.4 ML Syringe SC (08:10)
--- NOTE | 2022-01-28 08:26 | DS.PCM_ITS ---
Providers Date of Admission: 01/25/22 Date of Discharge: 01/28/22 Primary Care Physician: Dr. Brent Santamaria MD Reason For Visit: UTI Diagnosis Discharge Diagnosis (1) Cellulitis: Status: Acute Code(s): L03.90 - Cellulitis, unspecified Plan Patient is a 47-year-old gentleman who presented to the emergency department with fever. He was found to have rash on his left lower extremity and assessment of cellulitis made 1. Cellulitis involving the left lower extremity ? Suspected to be strep admitted to regular nursing floor started on Rocephin ? Patient continues to spike fever added vancomycin to therapy sent for blood cultures -01/26/2022He had significant tachycardia as well as fever the day prior. Repeated sepsis screen lactic acid came back again normal. Did broaden patient antibiotic therapy. ities 2. Acute cystitis with staph epi ? Culture sent patient is on Rocephin ? 01/26/2022 urine cultures pending ? 01/27/2022; patient urine cultures came back positive for Staphylococcus speci es. Final identification and sensitivities pending. Patient remains on vancomycin -01/28/2022; patient switched to Levaquin following receipt of final identification and sensitiv 3. Anxiety disorder with panic attack ? Patient is on Atarax as needed 4. Class III obesity with BMI of 50.2 ? Weight loss advised 5. Obesity hypoventilation syndrome ? Patient had apparently been prescribed BiPAP at night he has however not been compliant counseled on the need to use his BiPAP as prescribed 6. DVT prophylaxis ? Lovenox 7. Elevated blood pressure ? Patient has a known hypertensive started on HCTZ Medications at Discharge Home Medications hydrochlorothiazide 25 mg tablet 25 mg PO DAILY #60 tabs 01/28/22 levofloxacin 750 mg tablet 750 mg PO DAILY@0600 #5 tabs 01/28/22 Hospital Course Summary of Care Provided Minutes Spent on Discharge: 35 Physical Exam Narrative GENERAL: Lethargic but easily arousable HEENT: Atraumatic; normocephalic EYES; Anicteric, Normal Conjunctiva NECK; supple, normal thyroid, RESPIRATORY: Diminished to auscultation CARDIOVASCULAR: Regular S1 S2, GI: soft, normoactive bowel sounds, : No Renal angle tenderness; EXTREMITIES: right lower extremity with some excoriation MUSCULOSKELETAL: no muscle wasting NEURO: no lateralizing signs. SKIN: As described above PSYCH; Flat affect Weight / BMI Weight Weight: 168 kg Body Mass Index (BMI) 50.2 ABG / Lab / Microbiology Data Result Diagrams: 01/26/22 05:17 01/26/22 05:17 Microbiology: Microbiology 01/25/22 03:50 Blood Culture (Wb) - Right Hand Blood Culture - Preliminary No growth in 48 hours. 01/25/22 03:50 Blood Culture (Wb) - Left Forearm Blood Culture - Preliminary No growth in 48 hours. 01/25/22 04:35 Urine, Random Urine Culture - Final Staphylococcus epidermidis 01/25/22 03:55 Nasal Secretion SARS-CoV-2 Antigen (Rapid) - Final D/C Instructions Discharge Diet: No restrictions Discharge Activity: Return to Normal Activity Call your doctor if you observe: Fever of 101 or Higher, Shortness of breath, Fainting spells and Chest pain Meaningful Use Info Meaningful Use Diagnoses (Choose all that apply): None applicable Discharge Plan Admission Admit Date/Time: 01/25/22 05:15 Attending Provider: Martin Segura Primary Care Provider: Brent Santamaria Consulting Providers: Sudheer Espinal Instructions Forms: Work / School Excuse Discharge Orders/Prescriptions Prescriptions: New hydrochlorothiazide 25 mg Tablet 25 mg PO DAILY Qty: 60 0RF levofloxacin 750 mg Tablet 750 mg PO DAILY@0600 Qty: 5 0RF Referrals / Follow Up: Brent Santamaria MD [Primary Care Provider] - In 1 Week Disposition Disposition (needs filled in before D/C Order can be placed): Home, Self Care Charges/Coding Visit Charges Inpatient E&M: 03854 Disch Hosp
[2022-01-28 08:38] LABS: Absolute Lymphocyte Count 0.93 X10^3/uL (0.83-4.51); Absolute Neutrophil Count 4.6 X10^3/uL (2.0-7.7); Basophil# 0.04 X10^3/uL; Basophil% 0.6 % (0-1); Eosinophil# 0.29 X10^3/uL; Eosinophils% 4.7 % (0-5); Hemoglobin 13.9 g/dL (13.0-16.5); Lymphocyte # 0.93 X10^3/ul (0.83-4.51); Lymphocyte % 15.1 % (19-41); Mean Corp Hgb Conc 32.3 g/dL (32-36); Mean Corpuscular Hgb 27.6 pg (27.0-32.0); Mean Corpuscular Volume 85.3 fL (80-94); Mean Platelet Vol. 9.6 fl (6.2-12.0); Monocyte# 0.26 X10^3/uL; Monocyte% 4.2 % (0-10); NRBC Flagged by Analyzer 0 % (0-5); Neutrophil % 74.6 % (47-70); Platelet Count 279 K/mm3 (150-450); RBC Distribution Width CV 15.1 % (11.6-14.6); RBC Distribution Width SD 47.1 fl (35.1-43.9); Red Blood Count 5.04 M/mm3 (4.6-6.2); White Blood Count 6.2 K/mm3 (4.4-11.0)
[2022-01-28 08:51] LABS: Anion Gap 9 (5-15); BUN 19 mg/dL (7-18); Calcium,Total 8.7 mg/dL (8.5-10.1); Chloride 103 mmol/L (98-107); EST Glomerular Filtration Rate 95 mL/min (>60); Est Glom Filt Rate - Afr Amer 115 mL/min (>60); Estimated Creatinine Clearance 108.98 ml/min; Glucose 169 mg/dL (74-106); Magnesium 1.9 mg/dL (1.6-2.6); Potassium 3.7 mmol/L (3.5-5.1); Sodium Level 138 mmol/L (136-145)
== END 2022-01-28 10:41 | disposition home or self-care (01) | DRG 603 ==
LOC: ED 05:02 → MS3 05:34
PROVIDERS: Admitting Provider Hospitalist; Emergency Provider Emergency Medicine; PCP Family Medicine; Visit Provider Internal Medicine
DX: L03.116 Cellulitis of left lower limb (principal); E66.2 Morbid (severe) obesity with alveolar hypoventilation; Z68.43 Body mass index [BMI] 50.0-59.9, adult; N30.00 Acute cystitis without hematuria; F17.210 Nicotine dependence, cigarettes, uncomplicated; D72.810 Lymphocytopenia; F41.0 Panic disorder [episodic paroxysmal anxiety]; R03.0 Elevated blood-pressure reading, without diagnosis of hypertension; B95.7 Other staphylococcus as the cause of diseases classified elsewhere
CPT/HCPCS: 36415; 71045; 80048; 80053; 80202; 81001; 83605; 83735; 85025; 85610; 85730; 86703; 87040; 87077; 87086; 87088; 87186; 87811; 93005; 99285; J7040; J7050; A4216; J1940; J2405

== ENCOUNTER 2022-03-04 15:44 | Inpatient (IN) | payer BC, SELFPAY ==
[2022-03-04] VITALS (16 sets, daily range): BP systolic 128–159; BP diastolic 82–141; PULSE 98–140; RESP 16–28; TEMP 36.2–36.7; O2SAT 89–95; BMI 47.5; BMI 52.7
--- NOTE | 2022-03-04 16:03 | EKG12_ITS ---
Test Reason : SOB Blood Pressure : / mmHG Vent. Rate : 115 BPM Atrial Rate : 000 BPM P-R Int : 000 ms QRS Dur : 098 ms QT Int : 342 ms P-R-T Axes : 000 012 058 degrees QTc Int : 473 ms Atrial fibrillation with rapid ventricular response with premature ventricular or aberrantly conducte d complexes Low voltage QRS Nonspecific T wave abnormality Abnormal ECG Confirmed by MARIA EUGENIA IGLESIAS, AVIVA ([id number]), editor at large JORGE FOSTER ([id number]) on 03/06/2022 11:21:54 AM Referred By: Confirmed By:AVIVA DEL CID MD
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
[2022-03-04] MEDS: Ipratropium/Albuterol Sulfate 3 ML AMPUL.NEB INHALATION (16:16)
[2022-03-04] MEDS: Albuterol 2.5 MG/3 ML VIAL.NEB. INHALATION (16:16)
[2022-03-04] MEDS: MethylPREDNISolone 125 MG/2 ML Vial IV (16:17)
[2022-03-04 16:25] LABS: Absolute Lymphocyte Count 1.38 X10^3/uL (0.83-4.51); Absolute Neutrophil Count 7.3 X10^3/uL (2.0-7.7); Basophil# 0.05 X10^3/uL; Basophil% 0.5 % (0-1); Eosinophil# 0.03 X10^3/uL; Eosinophils% 0.3 % (0-5); Hematocrit 40.6 % (40-54); Hemoglobin 12.5 g/dL (13.0-16.5); Lymphocyte # 1.38 X10^3/ul (0.83-4.51); Lymphocyte % 14.7 % (19-41); Mean Corp Hgb Conc 30.8 g/dL (32-36); Mean Corpuscular Hgb 26.5 pg (27.0-32.0); Mean Platelet Vol. 9.4 fl (6.2-12.0); Monocyte# 0.61 X10^3/uL; Monocyte% 6.5 % (0-10); NRBC Flagged by Analyzer 0 % (0-5); Neutrophil # 7.29 X10^3/uL (2.7-7.7); Neutrophil % 77.8 % (47-70); Platelet Count 363 K/mm3 (150-450); RBC Distribution Width CV 16.2 % (11.6-14.6); RBC Distribution Width SD 51.2 fl (35.1-43.9); Red Blood Count 4.72 M/mm3 (4.6-6.2); White Blood Count 9.4 K/mm3 (4.4-11.0)
--- NOTE | 2022-03-04 16:25 | RAD_ITS ---
STUDY: X-RAY CHEST REASON FOR EXAM: Male, 47 years old. Shortness of breath TECHNIQUE: XR Chest 1 View COMPARISON: 01.25.22 FINDINGS: Normal visualized aortic arch and descending thoracic aorta. There are diffuse degenerative changes of the visualized thoracic spine. Normal visualized ribs, clavicles, and shoulders. There are bilateral pleural effusions. There are bilateral infiltrates. Normal size heart. Normal mediastinum and apolinar. Normal visualized pulmonary arteries. There is no demonstrated abnormality of the visualized soft tissue structures of the upper abdomen. RAD/Chest 1 View (Portable) IMPRESSION: Pulmonary findings appear worse. Electronically Signed: Kingsley Ruggiero MD at 16:48 EST ,
[2022-03-04 16:31] LABS: Base Excess -2 mmol/L (-2 to +2); Bicarbonate 23.3 mmol/L (22-26); Blood Gas Specimen Type ART; FI02 21; PO2 69 mmHG (75-100); SITE L Radial; SO2 94 % (95-99); Total Carbon Dioxide 25 mmol/L
--- NOTE | 2022-03-04 16:38 | CT_ITS ---
EXAM: CT ANGIOGRAPHY CHEST WITHOUT AND WITH INTRAVENOUS CONTRAST CLINICAL INDICATION: dyspnea Technologist Notes SOB X 1 WK, WHEEZING, INHALER NOT HELPING, COPD TECHNIQUE: Helically acquired angiography images were obtained of the chest without and with intravenous contrast. This CT exam was performed using one or more of the following dose reduction techniques: automated exposure control, adjustment of the mA and/or kV according to patient size, and/or use of iterative reconstruction technique. This report was created using [employer] report generation technology. MIP reconstructed images were created and reviewed. CONTRAST: IV 100mL Isovue-370 RADIATION DOSE: CTDIvol = 22.16 mGy, DLP = 525.21 mGy-cm COMPARISON: 05/28/2021 FINDINGS: PULMONARY ARTERIES: No demonstrated pulmonary embolism or arterial dissection. AORTA: There is atherosclerotic calcification of the aortic arch with tortuosity and elongation of the aortic arch and descending thoracic aorta. Normal in caliber. No evidence of dissection. GREAT VESSELS OF AORTIC ARCH: Unremarkable. Normal in caliber. No evidence of dissection. LUNGS AND PLEURAL SPACES: Large right pleural effusion. Small left pleural effusion. There is bilateral pneumonia. No mass. HEART: There are calcifications of the coronary arteries. No pericardial effusion. No signs of right heart strain, ratio of right ventricle to left ventricle measures less than 1. MEDIASTINUM: Unremarkable. No mediastinal or hilar adenopathy. Esophagus is unremarkable. No hiatal hernia. THYROID: Unremarkable. No thyroid lesions. BONES/JOINTS: There are degenerative changes of the shoulders. There are multi-level degenerative changes of the thoracic spine. No suspicious lytic or blastic abnormality. CT/CTA Chest W/WO Contrast IMPRESSION: 1. Large right pleural effusion. Small left pleural effusion. 2. No demonstrated pulmonary embolism or arterial dissection. 3. There is bilateral pneumonia. Electronically Signed: Kingsley Ruggiero MD at 17:35 EST ,
[2022-03-04 16:39] LABS: Anion Gap 7 (5-15); BUN 26 mg/dL (7-18); BUN/Creat Ratio 25.7 RATIO (10-20); Calcium,Total 8.6 mg/dL (8.5-10.1); Chloride 108 mmol/L (98-107); Creatinine, Serum 1.01 mg/dL (0.70-1.30); EST Glomerular Filtration Rate 83 mL/min (>60); Est Glom Filt Rate - Afr Amer 101 mL/min (>60); Estimated Creatinine Clearance 97.11 ml/min; Glucose 125 mg/dL (74-106); Potassium 4.2 mmol/L (3.5-5.1); Sodium Level 142 mmol/L (136-145); Troponin-I HS 42 pg/mL (3.0-78.0)
[2022-03-04 16:48] LABS: BNP,B-Type NATRIURETIC PEPTIDE 272.7 pg/mL (0-100)
--- NOTE | 2022-03-04 17:02 | EKG12_ITS ---
Test Reason : RE CHECK Blood Pressure : / mmHG Vent. Rate : 138 BPM Atrial Rate : 000 BPM P-R Int : 000 ms QRS Dur : 096 ms QT Int : 300 ms P-R-T Axes : 000 016 047 degrees QTc Int : 454 ms Atrial fibrillation with rapid ventricular response Low voltage QRS Abnormal ECG Confirmed by MARIA EUGENIA IGLESIAS, AVIVA ([id number]), photo editor JORGE FOSTER ([id number]) on 03/06/2022 11:22:11 AM Referred By: Confirmed By:AVIVA DEL CID MD
[2022-03-04] MEDS: Furosemide 100 MG/10 ML Vial 80 MG IV (17:07)
[2022-03-04] MEDS: Nitroglycerin Oint 1 INCH PACKET TD (17:17)
[2022-03-04] MEDS: dilTIAZem 25 MG/5 ML Vial 20 MG IV BOLUS (17:28)
[2022-03-04] MEDS: dilTIAZem 25 MG/5 ML Vial IV BOLUS (18:06)
--- NOTE | 2022-03-04 18:21 | NURSING ---
DR KVNG ARREDONDO
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
--- NOTE | 2022-03-04 20:44 | ECHOCS_ITS ---
Reason For Study: CHF Procedure This was a 2D Doppler, Color Flow transthoracic echocardiogram. The study was technically difficult. Contrast injection was performed. Exam performed portable in patient room. Left Ventricle Normal LV size. The estimated ejection fraction is 35 %. There is moderate global hypokinesis of the left ventricle. Right Ventricle Normal RV size. Normal systolic function. Atria The left atrium is moderately enlarged. Normal right atrium. Mitral Valve Mitral valve not well visualized. Tricuspid Valve Normal tricuspid valve. Mild (1+) tricuspid valve insufficiency. Pulmonary artery systolic pressure is 34 mmHg. Aortic Valve Trisinus/trileaflet aortic valve. Great Vessels Mildly dilated aortic root. Pericardium/Pleural No pericardial effusion. Medication Diluted definity 2ml given slow IV push to enhance endocardial definition. MMode/2D Measurements & Calculations LVIDd: 6.4 cm IVSd: 1.0 cm Ao root diam: 4.2 cm LVIDs: 4.8 cm LVPWd: 1.0 cm FS: 24.3 % LAV(MOD-bp): 98.3 ml LVAd ap4: 53.0 cm2 SV(MOD-sp4): 102.6 ml LAV(MOD-bp) Indexed: 37.2 ml/m2 LVLd ap4: 9.7 cm LAV(MOD-sp2): 81.6 ml EDV(MOD-sp4): 231.2 ml LAV(MOD-sp4): 91.9 ml EDV(sp4-el): 245.5 ml LVAs ap4: 37.6 cm2 LVLs ap4: 9.1 cm ESV(MOD-sp4): 128.6 ml ESV(sp4-el): 132.2 ml EF(MOD-sp4): 44.4 % EF(sp4-el): 46.2 % SV(sp4-el): 113.3 ml LA A4 area: 28.4 cm2 LA dimension(2D): 6.1 cm Doppler Measurements & Calculations MV E max [place]: 114.5 cm/sec Ao V2 max: 137.8 cm/sec LV V1 max: 105.0 cm/sec Ao max P.6 mmHg LV V1 max P.4 mmHg Ao V2 mean: 96.5 cm/sec LV V1 mean P.5 mmHg Ao mean P.2 mmHg LV V1 mean: 73.1 cm/sec Ao V2 VTI: 24.5 cm LV V1 VTI: 22.0 cm TR max [place]: 270.2 cm/sec TR max P.2 mmHg ECHO/Echo Complete W/ Contrast Interpretation Summary The estimated ejection fraction is 35 %. There is moderate global hypokinesis of the left ventricle. Normal LV size. Mildly dilated aortic root. Contrast injection was performed. Ordering Physician: Ang Krishna Referring Physician: SHUKRI WILLAMS Performed By: Sigrid Barahona RDCS, RVT
[2022-03-04] MEDS: Enoxaparin 80 MG/0.8 ML Syringe 160 MG SC (21:19)
[2022-03-04 21:45] LABS: Bedside Glucose 111 mg/dL (74-106)
[2022-03-04 21:53] LABS: Troponin-I HS 37 pg/mL (3.0-78.0)
[2022-03-04 23:22] LABS: Troponin-I HS 36 pg/mL (3.0-78.0)
[2022-03-05] VITALS (38 sets, daily range): BP systolic 99–155; BP diastolic 66–118; PULSE 59–141; RESP 11–76; TEMP 36.2–36.7; O2SAT 86–98
[2022-03-05 02:59] LABS: Troponin-I HS 28 pg/mL (3.0-78.0)
[2022-03-05 03:08] LABS: ALB/GLOB Ratio 0.7 RATIO (0.9-2.4); AST(SGOT) 29 U/L (15-37); Alanine Aminotransfer ALT/SGPT 50 U/L (16-61); Albumin, Serum 3.1 g/dL (3.2-5.0); Alkaline Phosphatase 60 U/L (45-117); Anion Gap 7 (5-15); BUN 27 mg/dL (7-18); BUN/Creat Ratio 27.7 RATIO (10-20); Calcium,Total 8.5 mg/dL (8.5-10.1); Chloride 106 mmol/L (98-107); Creatinine, Serum 0.97 mg/dL (0.70-1.30); EST Glomerular Filtration Rate 87 mL/min (>60); Est Glom Filt Rate - Afr Amer 105 mL/min (>60); Estimated Creatinine Clearance 101.11 ml/min; Globulin 4.4 g/dL (2.2-4.2); Glucose 154 mg/dL (74-106); Potassium 4.3 mmol/L (3.5-5.1); Protein, Total 7.5 g/dL (6.4-8.2); Sodium Level 141 mmol/L (136-145); Thyroid Stim Hormone (TSH) 2.48 uIU/mL (0.358-3.74)
[2022-03-05 06:56] LABS: Bedside Glucose 150 mg/dL (74-106)
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
[2022-03-05] MEDS: Budesonide Respules 0.5 MG/2 ML AMPUL.NEB. INHALATION ×2 (07:37→19:05)
--- NOTE | 2022-03-05 08:17 | PN.HOSP_ITS ---
Subjective Subjective Patient is a 47-year-old gentleman with BMI of 52.1 who presented with shortness of breath patient was found to have new onset A. fib with RVR. He was also assessed to be in acute congestive heart failure admitted to monitored bed for subsequent management Objective Data Objective Data Vital Signs: Vital Signs Temp Pulse Resp BP Pulse Ox O2 Del Method O2 Flow Rate 97.1 F L 88 20 H 133/99 H 94 Nasal Cannula 6 03/05/22 05:00 03/05/22 08:00 03/05/22 08:00 03/05/22 08:00 03/05/22 08:00 03/05/22 08:00 03/05/22 08:00 FiO2 100 03/04/22 18:00 Oxygen Flow Rate (L/min) 6 Oxygen Delivery Method Nasal Cannula Weight: 174.3 kg Body Mass Index (BMI) 52.7 Intake & Output: Intake and Output for Last 24 Hours 03/03/22 03/04/22 03/05/22 23:59 23:59 23:59 Intake Total 60.58 / 75.58 355.0 / 355.0 Output Total 1000 / 1000 Balance 60.58 / 75.58 -645.0 / -645.0 Lab / Micro Data Result Diagrams: 03/04/22 16:15 03/05/22 02:25 Labs: Laboratory Results - last 24 hr 03/04/22 16:15: WBC 9.4, RBC 4.72, Hgb 12.5 L, Hct 40.6, MCV 86.0, MCH 26.5 L, MCHC 30.8 L, RDW Std Deviation 51.2 H, RDW Coeff of [place] 16.2 H, Plt Count 363, MPV 9.4, Immature Gran % (Auto) 0.200, Neut % (Auto) 77.8 H, Lymph % (Auto) 14.7 L, [place] % (Auto) 6.5, Eos % (Auto) 0.3, Baso % (Auto) 0.5, Absolute Neuts (auto) 7.3, Absolute Lymphs (auto) 1.38, Nucleated RBC % 0 03/04/22 16:15: D-Dimer Quant (PE/DVT) 2.20 H* 03/04/22 16:15: Sodium 142, Potassium 4.2, Chloride 108 H, Carbon Dioxide 27.0, Anion Gap 7, BUN 26 H, Creatinine 1.01, Estim Creat Clear Calc 97.11, Est GFR (MDRD) Af Amer 101, Est GFR (MDRD) Non-Af 83, BUN/Creatinine Ratio 25.7 H, Glucose 125 H, Calcium 8.6, Troponin I High Sens 42 03/04/22 16:15: B-Natriuretic Peptide 272.7 H 03/04/22 21:14: POC Glucose 111 H 03/04/22 21:25: Troponin I High Sens 37 03/04/22 22:50: Troponin I High Sens 36 03/05/22 02:25: Sodium 141, Potassium 4.3, Chloride 106, Carbon Dioxide 28.0, Anion Gap 7, BUN 27 H, Creatinine 0.97, Estim Creat Clear Calc 101.11, Est GFR (MDRD) Af Amer 105, Est GFR (MDRD) Non-Af 87, BUN/Creatinine Ratio 27.7 H, Glucose 154 H, Calcium 8.5, Total Bilirubin 0.70, AST 29, ALT 50, Alkaline Phosphatase 60, Total Protein 7.5, Albumin 3.1 L, Globulin 4.4 H, Albumin/Globulin Ratio 0.7 L, TSH 2.48 03/05/22 02:30: Troponin I High Sens 28 03/05/22 06:34: POC Glucose 150 H Micro: Microbiology 03/04/22 16:24 Nasal Secretion SARS-CoV-2 & FLU Antigen (Rapid) - Final ABG Data ABG results: ABG 03/04/22 16:21 Specimen Type ART Sample Site L Radial pH 7.40 Bicarbonate Actual 23.3 Total CO2 25 Base Excess -2 O2 Saturation 94 L O2 % 21 ABG pCO2 38.0 ABG pO2 69 L Giles Test N/A Radiography Diagnostic Testing: Radiology Impression Chest X-Ray 03/04/22 16:25 IMPRESSION: Pulmonary findings appear worse. Electronically Signed: Kingsley Ruggiero MD at 16:48 EST , Chest CTA 03/04/22 16:38 IMPRESSION: 1. Large right pleural effusion. Small left pleural effusion. 2. No demonstrated pulmonary embolism or arterial dissection. 3. There is bilateral pneumonia. Electronically Signed: Kingsley Ruggiero MD at 17:35 EST , Physical Exam Narrative GENERAL: cooperative HEENT: Atraumatic; normocephalic EYES; Anicteric, Normal Conjunctiva NECK; supple, normal thyroid, RESPIRATORY: Diminished to auscultation CARDIOVASCULAR: Regular S1 S2, GI: soft, normoactive bowel sounds, : No Renal angle tenderness; EXTREMITIES: Bilateral chronic stasis dermatitis MUSCULOSKELETAL: no muscle wasting NEURO: Awake; no lateralizing signs. SKIN: As described above PSYCH; Flat affect Assessment & Plan Assessment/Plan (1) CHF (congestive heart failure): (2) Atrial fibrillation with RVR: (3) Acute hypoxemic respiratory failure: (4) Sleep apnea: QUALIFIERS: Sleep apnea type: obstructive Qualified Code(s): G47.33 - Obstructive sleep apnea (adult) (pediatric) PLAN: Plan Patient is a 47-year-old gentleman with BMI of 52.1 who presented with shortness of breath patient was found to have new onset A. fib with RVR. He was also assessed to be in acute congestive heart failure admitted to monitored bed for subsequent management 1.? New onset A. fib with RVR ? Patient has been admitted to a monitored bed treated with IV Cardizem with plans to switch to oral beta-blockers. Was also placed on systemic anticoagulation with Lovenox and consultation placed to cardiology 2.? Acute congestive heart failure with preserved ejection fraction ? Managed with diuretics echo ordered for EF assessment 3. Large right-sided pleural effusion Suspected to be secondary to patient congestive heart failure if patient does not improve with diuresis so placed an order for ultrasound-guided thoracocentesis 4.? Elevated D-dimer ? CTA obtained demonstrated large right-sided pleural effusion no pulmonary embolism. There was presence of bilateral pneumonia 5. Pneumonia - Suspected to be secondary to pneumonia with multidrug-resistant organisms given patient recent admission 6. Class III obesity with BMI of 50.2 ? Complicating care, weight loss advised 7. Obesity hypoventilation syndrome ? Patient had apparently been prescribed BiPAP at night he has however not been compliant counseled on the need to use his BiPAP as prescribed 8. Anxiety disorder with panic attack ? Patient is on Atarax as needed 9.? Hypertension - Blood pressure controlled, home medications continued with dose adjustment as needed 10. DVT prophylaxis Lovenox Charges/Coding Visit Charges Inpatient E&M: 27926 Subs Hosp L3
[2022-03-05] MEDS: Metoprolol Tartrate 100 MG Tablet PO ×2 (09:10→21:23)
[2022-03-05] MEDS: Furosemide 40 MG/4 ML Vial IV ×2 (09:10→18:13)
[2022-03-05] MEDS: 0.9% Saline Lock 10 ML Syringe IV ×3 (09:11→18:13)
[2022-03-05] MEDS: Enoxaparin 80 MG/0.8 ML Syringe 160 MG SC ×2 (09:11→21:24)
[2022-03-05] MEDS: Petrolatum 33% Tube 1 APPLIC TOPICAL ×2 (09:12→21:24)
--- NOTE | 2022-03-05 11:00 | CASEMGMT ---
VALERIANO MATSON assessment: Face to Face with patient for initial transition planning/care coordination assessment. VALERIANO MATSON introduced self and role at [facility], pt voices understanding and consents to assessment. Pt is sitting up in chair in no distress on 6L nc. Pt is A/Ox4 and answers all questions appropriately.? Care providers, pharmacy,?and demographics verified. ? Presentation: Pt c/o SOB x1 week, wheezing-hx COPD Admitting dx: CHF, A-fib PCP: Hina Specialists: None Preferred [facility]acy: [facility] Insurance: [place] Prescription Benefit:?[place] Living Will/HPOA: Pt does not have LW/HPOA and declines AD info. LNOK: Yesi Oden, daughter Living Arrangements: Pt lives with [id number] in apartment with 3 steps in and states no concerns at home. Pt is independent with ADL's. Transportation: Pt states he lost his license but states family/friends drive and states no transportation concerns. DME/HHC: Pt states no current DME or need for any DME. Pt states no hx of HHC or SNF. Pt states no concerns with going home at time of discharge. 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 Pt does not smoke cigarettes or drink ETOH. Pt voices no further concerns/needs. CM to follow for home oxygen need and any further discharge planning/needs. Advised pt to ask for CM if any further questions/concerns/needs arise, voices understanding. Pt Goal: Home ? Plan[place] VALERIANO MATSON
[2022-03-05 12:00] LABS: Bedside Glucose 115 mg/dL (74-106)
[2022-03-05] MEDS: hydrOXYzine 10 MG Tablet PO (15:15)
[2022-03-05 17:06] LABS: Bedside Glucose 103 mg/dL (74-106)
[2022-03-05 21:50] LABS: Bedside Glucose 120 mg/dL (74-106)
[2022-03-06] VITALS (19 sets, daily range): BP systolic 117–150; BP diastolic 82–108; PULSE 49–115; RESP 14–61; TEMP 36.3–36.8; O2SAT 94–98
[2022-03-06 06:04] LABS: Absolute Lymphocyte Count 1.55 X10^3/uL (0.83-4.51); Absolute Neutrophil Count 6.4 X10^3/uL (2.0-7.7); Basophil# 0.04 X10^3/uL; Basophil% 0.5 % (0-1); Eosinophil# 0.03 X10^3/uL; Eosinophils% 0.3 % (0-5); Hematocrit 37.9 % (40-54); Hemoglobin 12.2 g/dL (13.0-16.5); Lymphocyte # 1.55 X10^3/ul (0.83-4.51); Mean Corp Hgb Conc 32.2 g/dL (32-36); Mean Corpuscular Hgb 27.5 pg (27.0-32.0); Mean Corpuscular Volume 85.4 fL (80-94); Mean Platelet Vol. 9.7 fl (6.2-12.0); NRBC Flagged by Analyzer 0 % (0-5); Neutrophil # 6.35 X10^3/uL (2.7-7.7); Platelet Count 346 K/mm3 (150-450); RBC Distribution Width CV 16.2 % (11.6-14.6); RBC Distribution Width SD 50.4 fl (35.1-43.9); Red Blood Count 4.44 M/mm3 (4.6-6.2); White Blood Count 8.6 K/mm3 (4.4-11.0)
[2022-03-06 06:42] LABS: AST(SGOT) 28 U/L (15-37); Alanine Aminotransfer ALT/SGPT 51 U/L (16-61); Alkaline Phosphatase 57 U/L (45-117); Anion Gap 8 (5-15); BUN 51 mg/dL (7-18); BUN/Creat Ratio 30.4 RATIO (10-20); Bilirubin, Direct 0.14 mg/dL (0.00-0.30); Calcium,Total 8.3 mg/dL (8.5-10.1); Chloride 104 mmol/L (98-107); Creatinine, Serum 1.68 mg/dL (0.70-1.30); EST Glomerular Filtration Rate 46 mL/min (>60); Est Glom Filt Rate - Afr Amer 56 mL/min (>60); Estimated Creatinine Clearance 58.38 ml/min; Globulin 4.2 g/dL (2.2-4.2); Glucose 112 mg/dL (74-106); Magnesium 2.4 mg/dL (1.6-2.6); Phosphorus 5.2 mg/dL (2.5-4.9); Potassium 4.5 mmol/L (3.5-5.1); Protein, Total 7.2 g/dL (6.4-8.2); Sodium Level 136 mmol/L (136-145)
--- NOTE | 2022-03-06 07:02 | PN.CARD_ITS ---
Subjective Subjective Patient was seen and evaluated. Appears to be doing better this morning. Objective Data Vital Signs: Vital Signs Temp Pulse Resp BP Pulse Ox O2 Del Method O2 Flow Rate 97.8 F 49 L 49 H 126/96 H 96 Nasal Cannula 3 03/05/22 23:00 03/06/22 03:15 03/06/22 03:15 03/06/22 03:15 03/06/22 03:15 03/06/22 03:15 03/06/22 03:15 FiO2 100 03/04/22 18:00 Oxygen Flow Rate (L/min) 3 Oxygen Delivery Method Nasal Cannula Weight: 389 lb 1.854 oz Body Mass Index (BMI) 52.7 Intake & Output: Intake and Output for Last 24 Hours 03/04/22 03/05/22 03/06/22 23:59 23:59 23:59 Intake Total 60.58 / 75.58 1698.25 / 2588.25 925.17 / 925.17 Output Total 1475 / 2355 880 / 880 Balance 60.58 / 75.58 223.25 / 233.25 45.17 / 45.17 Lab / Micro Data Result Diagrams: 03/06/22 05:50 03/06/22 05:50 Labs: Laboratory Results - last 24 hr 03/05/22 11:27: POC Glucose 115 H 03/05/22 16:45: POC Glucose 103 03/05/22 21:13: POC Glucose 120 H 03/06/22 05:50: WBC 8.6, RBC 4.44 L, Hgb 12.2 L, Hct 37.9 L, MCV 85.4, MCH 27.5, MCHC 32.2, RDW Std Deviation 50.4 H, RDW Coeff of [place] 16.2 H, Plt Count 346, MPV 9.7, Immature Gran % (Auto) 0.200, Neut % (Auto) 74.0 H, Lymph % (Auto) 18.0 L, [place] % (Auto) 7.0, Eos % (Auto) 0.3, Baso % (Auto) 0.5, Absolute Neuts (auto) 6.4, Absolute Lymphs (auto) 1.55, Nucleated RBC % 0 03/06/22 05:50: Sodium 136, Potassium 4.5, Chloride 104, Carbon Dioxide 24.0, Anion Gap 8, BUN 51 H, Creatinine 1.68 H, Estim Creat Clear Calc 58.38, Est GFR (MDRD) Af Amer 56 L, Est GFR (MDRD) Non-Af 46 L, BUN/Creatinine Ratio 30.4 H, Glucose 112 H, Calcium 8.3 L, Phosphorus 5.2 H, Magnesium 2.4, Total Bilirubin 0.40, Direct Bilirubin 0.14, AST 28, ALT 51, Alkaline Phosphatase 57, Total Protein 7.2, Albumin 3.0 L, Globulin 4.2 Micro: Microbiology 03/05/22 14:56 Urine, Clean Catch Legionella Antigen - Final 03/05/22 14:56 Urine, Clean Catch Streptococcus pneumoniae Antigen (M - Final Cardiology Labs/Tests 03/06/22 05:50: WBC 8.6, RBC 4.44 L, Hgb 12.2 L, Hct 37.9 L, MCV 85.4, MCH 27.5, MCHC 32.2, Plt Count 346, MPV 9.7, Immature Gran % (Auto) 0.200, Neut % (Auto) 74.0 H, Lymph % (Auto) 18.0 L, [place] % (Auto) 7.0, Eos % (Auto) 0.3, Baso % (Auto) 0.5, Absolute Neuts (auto) 6.4, Nucleated RBC % 0 03/06/22 05:50: Sodium 136, Potassium 4.5, Chloride 104, Carbon Dioxide 24.0, Anion Gap 8, BUN 51 H, Creatinine 1.68 H, Est GFR (MDRD) Af Amer 56 L, Est GFR (MDRD) Non-Af 46 L, BUN/Creatinine Ratio 30.4 H, Glucose 112 H, Calcium 8.3 L, Phosphorus 5.2 H, Magnesium 2.4, Total Bilirubin 0.40, Direct Bilirubin 0.14 Rhythm: EKG: ECHO: Stress Test: Cardiac Cath: PCI: CT Surgery: Holter monitor: EPS: PPM: CXR: Chest CT Scan: Radiography Diagnostic Testing: Radiology Impression Echocardiogram 03/04/22 20:44 Interpretation Summary The estimated ejection fraction is 35 %. There is moderate global hypokinesis of the left ventricle. Normal LV size. Mildly dilated aortic root. Contrast injection was performed. Ordering Physician: Ang Krishna Referring Physician: SHUKRI WILLAMS Performed By: Sigrid Barahona, YAMILEX, RVT Physical Exam Const alert, oriented x3 and no apparent distress General Appearance: cooperative HEENT hearing grossly normal bilaterally Head and Scalp: atraumatic Eyes EOMs intact bilaterally Neck General: normal visual inspection Chest inspection of chest normal and palpation of chest normal Resp normal respiratory effort Effort and Inspection: uses accessory muscles Auscultation: diminished lung sounds Cardio S1 normal heart sound and S2 normal heart sound Jugular Venous Distention: JVD Rhythm: abnormal rhythm irregularly irregular GI normal to inspection, nondistended, normoactive bowel sounds Extremity normal capillary refill Extremity Narrative: 3+ pedal edema General Extremity: edema Peripheral Pulses: Yes pulses 2+ throughout and femoral pulses present Skin no rashes or lesions noted Neuro oriented x3 and CN's II-XII intact bilaterally Psych Appearance: grossly normal and appropriate Assessment & Plan Assessment/Plan (1) Atrial fibrillation with RVR: PLAN: Patient presents with new onset atrial fibrillation. The etiology is likely secondary to hypertensive heart disease as well as possible congestive heart failure and concomitant infection. My recommendation at this time will be as follows: * Anticoagulation with Lovenox and switch to Eliquis * Rate control with intravenous diltiazem and then switching over to oral beta- kane * Echocardiogram to assess his ventricular function demonstrated that he had global reduction in left ventricular systolic function estimated at 35%. (2) CHF (congestive heart failure): PLAN: He does appear to have element of diastolic heart failure and systolic heart failure. * He will need to continue with beta-kane * Continue diuretics * Add SGLT2 inhibitor * (3) HTN (hypertension), benign: PLAN: His blood pressure appears to be elevated. I would recommend that we start him on a beta-kane as well as adding an NESSA inhibitors or ARB. We will continue to monitor his blood pressure carefully. Thank you for allowing me to participate in the care of your patient. Please don't hesitate to call if any issues arise.
[2022-03-06 07:20] LABS: Bedside Glucose 110 mg/dL (74-106)
[2022-03-06] MEDS: Budesonide Respules 0.5 MG/2 ML AMPUL.NEB. INHALATION (07:20)
[2022-03-06] MEDS: 0.9% Saline Lock 10 ML Syringe IV ×2 (09:15→21:02)
[2022-03-06] MEDS: Furosemide 40 MG/4 ML Vial IV (09:15)
[2022-03-06] MEDS: Metoprolol Tartrate 100 MG Tablet PO ×2 (09:18→20:57)
[2022-03-06] MEDS: Petrolatum 33% Tube 1 APPLIC TOPICAL ×2 (09:18→20:57)
[2022-03-06] MEDS: APIXABAN 5 MG TABLET PO ×2 (09:18→20:57)
--- NOTE | 2022-03-06 09:22 | PN.HOSP_ITS ---
Subjective Subjective Patient seen still remains dyspneic at rest. Plan is for patient to be switched from Lovenox to Eliquis and continue with current diuresis Objective Data Objective Data Vital Signs: Vital Signs Temp Pulse Resp BP Pulse Ox O2 Del Method O2 Flow Rate 98.3 F 88 20 H 127/90 H 95 Nasal Cannula 3 03/06/22 09:11 03/06/22 09:18 03/06/22 09:11 03/06/22 09:11 03/06/22 09:11 03/06/22 09:11 03/06/22 09:11 FiO2 100 03/04/22 18:00 Oxygen Flow Rate (L/min) 3 Oxygen Delivery Method Nasal Cannula Weight: 176.5 kg Body Mass Index (BMI) 52.7 Intake & Output: Intake and Output for Last 24 Hours 03/04/22 03/05/22 03/06/22 23:59 23:59 23:59 Intake Total 60.58 / 75.58 1698.25 / 2588.25 1025.17 / 1025.17 Output Total 1475 / 2355 880 / 880 Balance 60.58 / 75.58 223.25 / 233.25 145.17 / 145.17 Lab / Micro Data Result Diagrams: 03/06/22 05:50 03/06/22 05:50 Labs: Laboratory Results - last 24 hr 03/05/22 11:27: POC Glucose 115 H 03/05/22 16:45: POC Glucose 103 03/05/22 21:13: POC Glucose 120 H 03/06/22 05:50: WBC 8.6, RBC 4.44 L, Hgb 12.2 L, Hct 37.9 L, MCV 85.4, MCH 27.5, MCHC 32.2, RDW Std Deviation 50.4 H, RDW Coeff of [place] 16.2 H, Plt Count 346, MPV 9.7, Immature Gran % (Auto) 0.200, Neut % (Auto) 74.0 H, Lymph % (Auto) 18.0 L, [place] % (Auto) 7.0, Eos % (Auto) 0.3, Baso % (Auto) 0.5, Absolute Neuts (auto) 6.4, Absolute Lymphs (auto) 1.55, Nucleated RBC % 0 03/06/22 05:50: Sodium 136, Potassium 4.5, Chloride 104, Carbon Dioxide 24.0, Anion Gap 8, BUN 51 H, Creatinine 1.68 H, Estim Creat Clear Calc 58.38, Est GFR (MDRD) Af Amer 56 L, Est GFR (MDRD) Non-Af 46 L, BUN/Creatinine Ratio 30.4 H, Glucose 112 H, Calcium 8.3 L, Phosphorus 5.2 H, Magnesium 2.4, Total Bilirubin 0.40, Direct Bilirubin 0.14, AST 28, ALT 51, Alkaline Phosphatase 57, Total Protein 7.2, Albumin 3.0 L, Globulin 4.2 03/06/22 07:01: POC Glucose 110 H Micro: Microbiology 03/05/22 14:56 Urine, Clean Catch Legionella Antigen - Final 03/05/22 14:56 Urine, Clean Catch Streptococcus pneumoniae Antigen (M - Final 03/04/22 16:24 Nasal Secretion SARS-CoV-2 & FLU Antigen (Rapid) - Final Radiography Diagnostic Testing: Radiology Impression Echocardiogram 03/04/22 20:44 Interpretation Summary The estimated ejection fraction is 35 %. There is moderate global hypokinesis of the left ventricle. Normal LV size. Mildly dilated aortic root. Contrast injection was performed. Ordering Physician: Ang Krishna Referring Physician: SHUKRI WILLAMS Performed By: Sigrid Barahona RDCS, RVT Physical Exam Narrative GENERAL: cooperative HEENT: Atraumatic; normocephalic EYES; Anicteric, Normal Conjunctiva NECK; supple, normal thyroid, RESPIRATORY: Diminished to auscultation CARDIOVASCULAR: Regular S1 S2, GI: soft, normoactive bowel sounds, : No Renal angle tenderness; EXTREMITIES: Bilateral chronic stasis dermatitis MUSCULOSKELETAL: no muscle wasting NEURO: Awake; no lateralizing signs. SKIN: As described above PSYCH; Flat affect Assessment & Plan Assessment/Plan (1) CHF (congestive heart failure): (2) Atrial fibrillation with RVR: (3) Acute hypoxemic respiratory failure: (4) Sleep apnea: QUALIFIERS: Sleep apnea type: obstructive Qualified Code(s): G47.33 - Obstructive sleep apnea (adult) (pediatric) PLAN: Plan Patient is a 47-year-old gentleman with BMI of 52.1 who presented with shortness of breath patient was found to have new onset A. fib with RVR. He was also assessed to be in acute congestive heart failure admitted to monitored bed for subsequent management 1.? New onset A. fib with RVR ? Patient has been admitted to a monitored bed treated with IV Cardizem with plans to switch to oral beta-blockers. Was also placed on systemic an ticoagulation with Lovenox and consultation placed to cardiology ? 03/06/2022 patient switched from Lovenox to apixaban. Cardizem drip has since been discontinued patient is on beta-blockers. 2.? Acute congestive heart failure with preserved ejection fraction ? Managed with diuretics echo ordered for EF assessment ? 03/06/2022. 2D echo obtained the day prior did show ejection fraction of 35 %. Moderate global hypokinesis of the left ventricle. Normal LV size. Mildly dilated aortic root. Patient is on diuresis did continue 3. Large right-sided pleural effusion Suspected to be secondary to patient congestive heart failure if patient does not improve with diuresis so placed an order for ultrasound-guided thoracocentesis 4.? Elevated D-dimer ? CTA obtained demonstrated large right-sided pleural effusion no pulmonary embolism. There was presence of bilateral pneumonia 5. Pneumonia - Suspected to be secondary to pneumonia with multidrug-resistant organisms given patient recent admission 6. Class III obesity with BMI of 50.2 ? Complicating care, weight loss advised 7. Obesity hypoventilation syndrome ? Patient had apparently been prescribed BiPAP at night he has however not been compliant counseled on the need to use his BiPAP as prescribed 8. Anxiety disorder with panic attack ? Patient is on Atarax as needed 9.? Hypertension - Blood pressure controlled, home medications continued with dose adjustment as needed 10. DVT prophylaxis Lovenox 11. Physical deconditioning - Requested for PT OT eval and social media community manager to assist with discharge planning Charges/Coding Visit Charges Inpatient E&M: 95523 Subs Hosp L2
[2022-03-06 11:51] LABS: Bedside Glucose 123 mg/dL (74-106)
[2022-03-06 16:50] LABS: Bedside Glucose 89 mg/dL (74-106)
[2022-03-06] MEDS: Furosemide 40 MG Tablet PO (17:37)
[2022-03-07] VITALS (15 sets, daily range): BP systolic 108–135; BP diastolic 72–108; PULSE 59–105; RESP 15–22; TEMP 36.4–36.8; O2SAT 74–100
[2022-03-07 00:30] LABS: Bedside Glucose 127 mg/dL (74-106)
--- NOTE | 2022-03-07 01:53 | CPS ---
03/06/22 @2042 RT was notified by RN that patient was ready to be placed on a BIPAP machine for [place] and CHF exacerbation. @2144 RT entered patient room with a V60 BIPAP machine to place on patient at which time the patient stated he does not like the big machines and further suggested he would rather wear oxygen via nasal cannula instead of wear a mask with the V60. RT made patient aware that given his continued severe hypoxia while sleeping it would be highly recommended that he wear BIPAP. It was also made known to the patient that there was a possibility a sleep lab machine (more suitable for home use situations) could be made available to him for use if he was willing to be compliant with it. RT notified RN that a sleep lab machine would be checked into and set up for the patient if able. @2234 RT was back at bedside with sleep lab machine for patient with a full face mask and set up with an oxygen bleed in. The patient was initially set up on auto titrating BIPAP and while RT was still at bedside the patient had several 15-20 second long periods of apnea and would not trigger a breath from the machine. This caused the patient sat to drop into the 60s and there was also a dip in HR at this time as well. The patient would then wake himself up after these periods of apnea and continue breathing at which time his oxygen sat would return to the low 90s. As a result of this RT then changed the settings on the sleep lab machine to set BIPAP settings of 18/13 with a backup rate set to 14. The patient also ended up requiring a 10 liter bleed in even with these high pressure settings on the BIPAP just to keep his O2 sat greater than 89%. Patient remains on a continuous pulse ox. at bedside while on the BIPAP as he has also had moments where he rips everything off, his O2 sat drops below 86%, and he wakes up confused and disoriented. RN and physician made aware of these findings. RT recommends this patient be re-evaluated in sleep lab with a sleep study to determine accurate nocturnal oxygenation/ventilation needs after observing the periods of apnea and severe hypoxia while at bedside. The patient informed RT that he used to have a machine at home several years ago, but no longer has one and is noncompliant at home at this time.
[2022-03-07 05:08] LABS: Absolute Lymphocyte Count 1.47 X10^3/uL (0.83-4.51); Absolute Neutrophil Count 5.2 X10^3/uL (2.0-7.7); Basophil# 0.06 X10^3/uL; Basophil% 0.8 % (0-1); Eosinophil# 0.11 X10^3/uL; Eosinophils% 1.5 % (0-5); Hematocrit 40.1 % (40-54); Hemoglobin 12.7 g/dL (13.0-16.5); Lymphocyte # 1.47 X10^3/ul (0.83-4.51); Lymphocyte % 19.9 % (19-41); Mean Corp Hgb Conc 31.7 g/dL (32-36); Mean Corpuscular Hgb 27.1 pg (27.0-32.0); Mean Corpuscular Volume 85.7 fL (80-94); Mean Platelet Vol. 9.3 fl (6.2-12.0); Monocyte# 0.52 X10^3/uL; NRBC Flagged by Analyzer 0 % (0-5); Neutrophil # 5.22 X10^3/uL (2.7-7.7); Neutrophil % 70.7 % (47-70); Platelet Count 343 K/mm3 (150-450); RBC Distribution Width CV 16.1 % (11.6-14.6); RBC Distribution Width SD 50.3 fl (35.1-43.9); Red Blood Count 4.68 M/mm3 (4.6-6.2); White Blood Count 7.4 K/mm3 (4.4-11.0)
[2022-03-07 05:35] LABS: Anion Gap 4 (5-15); BUN 48 mg/dL (7-18); BUN/Creat Ratio 35.6 RATIO (10-20); Calcium,Total 8.3 mg/dL (8.5-10.1); Chloride 105 mmol/L (98-107); Creatinine, Serum 1.35 mg/dL (0.70-1.30); EST Glomerular Filtration Rate 60 mL/min (>60); Est Glom Filt Rate - Afr Amer 72 mL/min (>60); Estimated Creatinine Clearance 72.65 ml/min; Glucose 99 mg/dL (74-106); Potassium 4.2 mmol/L (3.5-5.1); Sodium Level 139 mmol/L (136-145)
[2022-03-07] MEDS: Budesonide Respules 0.5 MG/2 ML AMPUL.NEB. INHALATION ×2 (07:01→19:36)
[2022-03-07 07:10] LABS: Bedside Glucose 121 mg/dL (74-106)
--- NOTE | 2022-03-07 07:51 | PCM.PN.HOSP ---
Subjective Subjective Patient breathing improved patient will be assessed for possible discharge Objective Data Objective Data Vital Signs: Vital Signs Temp Pulse Resp BP Pulse Ox O2 Del Method O2 Flow Rate 97.6 F L 87 18 135/108 H 96 Room Air 10 03/07/22 07:40 03/07/22 07:40 03/07/22 07:40 03/07/22 07:40 03/07/22 07:40 03/07/22 07:46 03/06/22 23:09 FiO2 3 03/06/22 23:09 Oxygen Flow Rate (L/min) 10 Oxygen Delivery Method Room Air Weight: 178.3 kg Body Mass Index (BMI) 52.7 Intake & Output: Intake and Output for Last 24 Hours 03/05/22 03/06/22 03/07/22 23:59 23:59 23:59 Intake Total 1698.25 / 2588.25 2660.17 / 2780.17 245 / 245 Output Total 1475 / 2355 1580 / 1580 Balance 223.25 / 233.25 1080.17 / 1200.17 245 / 245 Lab / Micro Data Result Diagrams: 03/07/22 04:50 03/07/22 04:50 Labs: Laboratory Results - last 24 hr 03/06/22 11:29: POC Glucose 123 H 03/06/22 16:29: POC Glucose 89 03/07/22 00:10: POC Glucose 127 H 03/07/22 04:50: WBC 7.4, RBC 4.68, Hgb 12.7 L, Hct 40.1, MCV 85.7, MCH 27.1, MCHC 31.7 L, RDW Std Deviation 50.3 H, RDW Coeff of [place]air 16.1 H, Plt Count 343, MPV 9.3, Immature Gran % (Auto) 0.100, Neut % (Auto) 70.7 H, Lymph % (Auto) 19.9, [place] % (Auto) 7.0, Eos % (Auto) 1.5, Baso % (Auto) 0.8, Absolute Neuts (auto) 5.2, Absolute Lymphs (auto) 1.47, Nucleated RBC % 0 03/07/22 04:50: Sodium 139, Potassium 4.2, Chloride 105, Carbon Dioxide 30.0, Anion Gap 4 L, BUN 48 H, Creatinine 1.35 H, Estim Creat Clear Calc 72.65, Est GFR (MDRD) Af Amer 72, Est GFR (MDRD) Non-Af 60, BUN/Creatinine Ratio 35.6 H, Glucose 99, Calcium 8.3 L 03/07/22 06:05: POC Glucose 121 H Micro: Microbiology 03/05/22 14:56 Urine, Clean Catch Legionella Antigen - Final 03/05/22 14:56 Urine, Clean Catch Streptococcus pneumoniae Antigen (M - Final 03/04/22 16:24 Nasal Secretion SARS-CoV-2 & FLU Antigen (Rapid) - Final Physical Exam Narrative GENERAL: cooperative HEENT: Atraumatic; normocephalic EYES; Anicteric, Normal Conjunctiva NECK; supple, normal thyroid, RESPIRATORY: Diminished to auscultation CARDIOVASCULAR: Regular S1 S2, GI: soft, normoactive bowel sounds, : No Renal angle tenderness; EXTREMITIES: Bilateral chronic stasis dermatitis MUSCULOSKELETAL: no muscle wasting NEURO: Awake; no lateralizing signs. SKIN: As described above PSYCH; Flat affect Assessment & Plan Assessment/Plan (1) CHF (congestive heart failure): (2) Atrial fibrillation with RVR: (3) Acute hypoxemic respiratory failure: (4) Sleep apnea: QUALIFIERS: Sleep apnea type: obstructive Qualified Code(s): G47.33 - Obstructive sleep apnea (adult) (pediatric) PLAN: Plan Patient is a 47-year-old gentleman with BMI of 52.1 who presented with shortness of breath patient was found to have new onset A. fib with RVR. He was also assessed to be in acute congestive heart failure admitted to monitored bed for subsequent management 1.? New onset A. fib with RVR ? Patient has been admitted to a monitored bed treated with IV Cardizem with plans to switch to oral beta-blockers. Was also placed on systemic anticoagulation with Lovenox and consultation placed to cardiology ? 03/06/2022 patient switched from Lovenox to apixaban. Cardizem drip has since been discontinued patient is on beta-blockers. 2.? Acute congestive heart failure with preserved ejection fraction ? Managed with diuretics echo ordered for EF assessment ? 03/06/2022. 2D echo obtained the day prior did show ejection fraction of 35 %. Moderate global hypokinesis of the left ventricle. Normal LV size. Mildly dilated aortic root. Patient is on diuresis did continue 3. Large right-sided pleural effusion Suspected to be secondary to patient congestive heart failure if patient does not improve with diuresis so placed an order for ultrasound-guided thoracocentesis 4.? Elevated D-dimer ? CTA obtained demonstrated large right-sided pleural effusion no pulmonary embolism. There was presence of bilateral pneumonia 5. Pneumonia - Suspected to be secondary to pneumonia with multidrug-resistant organisms given patient recent admission 6. Class III obesity with BMI of 50.2 ? Complicating care, weight loss advised 7. Obesity hypoventilation syndrome ? Patient had apparently been prescribed BiPAP at night he has however not been compliant counseled on the need to use his BiPAP as prescribed 8. Anxiety disorder with panic attack ? Patient is on Atarax as needed 9.? Hypertension - Blood pressure controlled, home medications continued with dose adjustment as needed 10. DVT prophylaxis Lovenox 11. Physical deconditioning - Requested for PT OT eval and social welfare administrator to assist with discharge planning GENARO Charges/Coding Visit Charges Inpatient E&M: 80778 Subs Hosp L2
[2022-03-07] MEDS: Metoprolol Tartrate 50 MG Tablet PO ×2 (09:25→21:39)
[2022-03-07] MEDS: Petrolatum 33% Tube 1 APPLIC TOPICAL ×2 (09:25→21:40)
[2022-03-07] MEDS: APIXABAN 5 MG TABLET PO ×2 (09:25→21:40)
[2022-03-07] MEDS: Furosemide 40 MG Tablet PO ×2 (09:25→17:02)
--- NOTE | 2022-03-07 10:03 | NURSING ---
Gave report to Loyda BAL
--- NOTE | 2022-03-07 11:03 | DS.PCM_ITS ---
Providers Date of Admission: 03/04/22 Date of Discharge: 03/07/22 Primary Care Physician: Dr. Brent Santamaria MD Consultations 03/04/22 20:44 Consult: Cardiology Routine Consulting Provider: Ken Trejo Reason for Consult: CHF. afib EMERGENT Consult: No MD Notified: Yes Date Notified: 03/04/22 Time Notified: 18:45 Method of Notification: Text Reason For Visit: CHF, AFIB Diagnosis Discharge Diagnosis (1) CHF (congestive heart failure): Status: Acute Code(s): I50.9 - Heart failure, unspecified (2) Atrial fibrillation with RVR: Status: Acute Code(s): I48.91 - Unspecified atrial fibrillation (3) Acute hypoxemic respiratory failure: Status: Acute Code(s): J96.01 - Acute respiratory failure with hypoxia (4) Sleep apnea: Status: Chronic Code(s): G47.30 - Sleep apnea, unspecified Qualifiers: Sleep apnea type: obstructive Qualified Code(s): G47.33 - Obstructive sleep apnea (adult) (pediatric) Plan Patient is a 47-year-old gentleman with BMI of 52.1 who presented with shortness of breath patient was found to have new onset A. fib with RVR. He was also assessed to be in acute congestive heart failure admitted to monitored bed for subsequent management 1.? New onset A. fib with RVR ? Patient has been admitted to a monitored bed treated with IV Cardizem with plans to switch to oral beta-blockers. Was also placed on systemic anticoagulation with Lovenox and consultation placed to cardiology ? 03/06/2022 patient switched from Lovenox to apixaban. Cardizem drip has since been discontinued patient is on beta-blockers. 2.? Acute congestive heart failure with preserved ejection fraction ? Managed with diuretics echo ordered for EF assessment ? 03/06/2022. 2D echo obtained the day prior did show ejection fraction of 35 %. Moderate global hypokinesis of the left ventricle. Normal LV size. Mildly dilated aortic root. Patient is on diuresis did continue 3. Large right-sided pleural effusion Suspected to be secondary to patient congestive heart failure if patient does not improve with diuresis so placed an order for ultrasound-guided thoracocentesis 4.? Elevated D-dimer ? CTA obtained demonstrated large right-sided pleural effusion no pulmonary embolism. There was presence of bilateral pneumonia 5. Pneumonia - Suspected to be secondary to pneumonia with multidrug-resistant organisms given patient recent admission 6. Class III obesity with BMI of 50.2 ? Complicating care, weight loss advised 7. Obesity hypoventilation syndrome ? Patient had apparently been prescribed BiPAP at night he has however not been compliant counseled on the need to use his BiPAP as prescribed 8. Anxiety disorder with panic attack ? Patient is on Atarax as needed 9.? Hypertension - Blood pressure controlled, home medications continued with dose adjustment as needed 10. DVT prophylaxis Lovenox 11. Physical deconditioning - Requested for PT OT eval and school social worker to assist with discharge planning 12. GENARO -Due to diuresis. Adjusted Lasix dose kidney function did improve prior to Medications at Discharge Home Medications albuterol sulfate 90 mcg/actuation aerosol inhaler 2 inh inhalation Q4H PRN shortness of breath or wheezing #8.5 grams 03/07/22 apixaban 5 mg tablet (Eliquis) 5 mg PO BID #90 tabs 03/07/22 cefdinir 300 mg capsule 300 mg PO BID #10 caps 03/07/22 furosemide 40 mg tablet 40 mg PO BIDLX 90 days #180 tabs 03/07/22 lisinopril 2.5 mg tablet 2.5 mg PO DAILY #90 tabs 03/07/22 metoprolol tartrate 25 mg tablet 25 mg PO BID 90 days #180 tabs 03/07/22 Hospital Course Summary of Care Provided Minutes Spent on Discharge: 35 Physical Exam Narrative GENERAL: cooperative HEENT: Atraumatic; normocephalic EYES; Anicteric, Normal Conjunctiva NECK; supple, normal thyroid, RESPIRATORY: Diminished to auscultation CARDIOVASCULAR: Regular S1 S2, GI: soft, normoactive bowel sounds, : No Renal angle tenderness; EXTREMITIES: Bilateral chronic stasis dermatitis MUSCULOSKELETAL: no muscle wasting NEURO: Awake; no lateralizing signs. SKIN: As described above PSYCH; Flat affect Weight / BMI Weight Weight: 178.3 kg Body Mass Index (BMI) 52.7 ABG / Lab / Microbiology Data Result Diagrams: 03/07/22 04:50 03/07/22 04:50 Laboratory: Laboratory Results - last 24 hr 03/06/22 11:29: POC Glucose 123 H 03/06/22 16:29: POC Glucose 89 03/07/22 00:10: POC Glucose 127 H 03/07/22 04:50: WBC 7.4, RBC 4.68, Hgb 12.7 L, Hct 40.1, MCV 85.7, MCH 27.1, MCHC 31.7 L, RDW Std Deviation 50.3 H, RDW Coeff of [place] 16.1 H, Plt Count 343, MPV 9.3, Immature Gran % (Auto) 0.100, Neut % (Auto) 70.7 H, Lymph % (Auto) 19.9, Lane % (Auto) 7.0, Eos % (Auto) 1.5, Baso % (Auto) 0.8, Absolute Neuts (auto) 5.2, Absolute Lymphs (auto) 1.47, Nucleated RBC % 0 03/07/22 04:50: Sodium 139, Potassium 4.2, Chloride 105, Carbon Dioxide 30.0, Anion Gap 4 L, BUN 48 H, Creatinine 1.35 H, Estim Creat Clear Calc 72.65, Est GFR (MDRD) Af Amer 72, Est GFR (MDRD) Non-Af 60, BUN/Creatinine Ratio 35.6 H, Glucose 99, Calcium 8.3 L 03/07/22 06:05: POC Glucose 121 H Microbiology: Microbiology 03/05/22 14:56 Urine, Clean Catch Legionella Antigen - Final 03/05/22 14:56 Urine, Clean Catch Streptococcus pneumoniae Antigen (M - Final 03/04/22 16:24 Nasal Secretion SARS-CoV-2 & FLU Antigen (Rapid) - Final Meaningful Use Info Meaningful Use Diagnoses (Choose all that apply): CHF CHF NESSA/ARB ordered at discharge?: Yes Documented LVEF (%): 35 Discharge Plan Admission Admit Date/Time: 03/04/22 18:37 Attending Provider: Martin Segura Primary Care Provider: Brent Santamaria Consulting Providers: Ken Trejo Eric Discharge Orders/Prescriptions Prescriptions: New Eliquis 5 mg Tablet 5 mg PO BID Qty: 90 0RF furosemide 40 mg Tablet 40 mg PO BIDLX 90 Days Qty: 180 0RF lisinopril 2.5 mg tablet 2.5 mg PO DAILY Qty: 90 0RF metoprolol tartrate 25 mg tablet 25 mg PO BID 90 Days Qty: 180 0RF albuterol sulfate 90 mcg/actuation HFA aerosol inhaler 2 inh inhalation Q4H PRN (Reason: shortness of breath or wheezing) Qty: 8.5 0RF cefdinir 300 mg capsule 300 mg PO BID Qty: 10 0RF Discontinued hydrochlorothiazide 25 mg Tablet 25 mg PO DAILY Qty: 60 0RF Referrals / Follow Up: Brent Santamaria MD [Primary Care Provider] - In 1 Week Disposition Disposition (needs filled in before D/C Order can be placed): Home, Self Care Charges/Coding Visit Charges Inpatient E&M: 78846 Disch Hosp
--- NOTE | 2022-03-07 11:58 | CASEMGMT ---
Pt states no preference for [facility]. Per nursing, pt needs 2L at rest but walking on 8L was 87%. Dr. Segura updated and pt will not be discharged today. CM to follow for home oxygen need. Pt was provided with list of local pulmonary doctors to f/u for sleep study and pt aware to get in with PCP yocasta. Otilia BAL CM
[2022-03-07 12:21] LABS: Bedside Glucose 79 mg/dL (74-106)
[2022-03-07 16:45] LABS: Bedside Glucose 101 mg/dL (74-106)
[2022-03-07] MEDS: 0.9% Saline Lock 10 ML Syringe IV (21:39)
[2022-03-07 22:10] LABS: Bedside Glucose 93 mg/dL (74-106)
[2022-03-08] VITALS (9 sets, daily range): BP systolic 135–148; BP diastolic 87–102; PULSE 74–98; RESP 14–24; TEMP 36.8–36.9; O2SAT 86–97
[2022-03-08 04:56] LABS: Absolute Lymphocyte Count 1.24 X10^3/uL (0.83-4.51); Absolute Neutrophil Count 4.6 X10^3/uL (2.0-7.7); Basophil# 0.05 X10^3/uL; Basophil% 0.7 % (0-1); Eosinophil# 0.19 X10^3/uL; Eosinophils% 2.8 % (0-5); Hematocrit 37.7 % (40-54); Hemoglobin 11.8 g/dL (13.0-16.5); Lymphocyte # 1.24 X10^3/ul (0.83-4.51); Lymphocyte % 18.5 % (19-41); Mean Corp Hgb Conc 31.3 g/dL (32-36); Mean Corpuscular Hgb 26.9 pg (27.0-32.0); Mean Corpuscular Volume 86.1 fL (80-94); Mean Platelet Vol. 9.3 fl (6.2-12.0); Monocyte# 0.58 X10^3/uL; Monocyte% 8.7 % (0-10); NRBC Flagged by Analyzer 0 % (0-5); Neutrophil # 4.62 X10^3/uL (2.7-7.7); Platelet Count 310 K/mm3 (150-450); RBC Distribution Width CV 15.8 % (11.6-14.6); RBC Distribution Width SD 49.8 fl (35.1-43.9); Red Blood Count 4.38 M/mm3 (4.6-6.2); White Blood Count 6.7 K/mm3 (4.4-11.0)
[2022-03-08 05:25] LABS: Anion Gap 3 (5-15); BUN 38 mg/dL (7-18); BUN/Creat Ratio 40.8 RATIO (10-20); Calcium,Total 8.2 mg/dL (8.5-10.1); Chloride 106 mmol/L (98-107); Creatinine, Serum 0.93 mg/dL (0.70-1.30); EST Glomerular Filtration Rate 92 mL/min (>60); Est Glom Filt Rate - Afr Amer 111 mL/min (>60); Estimated Creatinine Clearance 105.46 ml/min; Glucose 101 mg/dL (74-106); Potassium 4.3 mmol/L (3.5-5.1); Sodium Level 140 mmol/L (136-145)
[2022-03-08] MEDS: 0.9% Saline Lock 10 ML Syringe IV (06:25)
[2022-03-08 06:45] LABS: Bedside Glucose 131 mg/dL (74-106)
[2022-03-08] MEDS: Budesonide Respules 0.5 MG/2 ML AMPUL.NEB. INHALATION (07:04)
--- NOTE | 2022-03-08 07:46 | PN.HOSP_ITS ---
Subjective Subjective Patient did remain stable overnight plan is for patient to be assessed for possible discharge Objective Data Objective Data Vital Signs: Vital Signs Temp Pulse Resp BP Pulse Ox O2 Del Method O2 Flow Rate 98.3 F 79 18 135/87 H 97 Nasal Cannula 2 03/08/22 03:06 03/08/22 07:00 03/08/22 03:06 03/08/22 03:06 03/08/22 03:06 03/08/22 05:30 03/08/22 05:30 FiO2 3 03/06/22 23:09 Oxygen Flow Rate (L/min) [ 8 AMBULATING with Oxygen #3] Oxygen Flow Rate (L/min) [ 6 AMBULATING with Oxygen #2] Oxygen Flow Rate (L/min) [ 4 AMBULATING with Oxygen #1] Oxygen Flow Rate (L/min) [At 4 REST with Oxygen] Oxygen Flow Rate (L/min) 2 Oxygen Delivery Method Nasal Cannula Weight: 176.1 kg Body Mass Index (BMI) 52.7 Intake & Output: Intake and Output for Last 24 Hours 03/06/22 03/07/22 03/08/22 23:59 23:59 23:59 Intake Total 2660.17 / 2780.17 1520 / 1520 400 / 400 Output Total 1580 / 1580 Balance 1080.17 / 1200.17 1520 / 1520 400 / 400 Lab / Micro Data Result Diagrams: 03/08/22 04:12 03/08/22 04:12 Labs: Laboratory Results - last 24 hr 03/07/22 11:57: POC Glucose 79 03/07/22 16:00: POC Glucose 101 03/07/22 21:32: POC Glucose 93 03/08/22 04:12: WBC 6.7, RBC 4.38 L, Hgb 11.8 L, Hct 37.7 L, MCV 86.1, MCH 26.9 L, MCHC 31.3 L, RDW Std Deviation 49.8 H, RDW Coeff of [place] 15.8 H, Plt Count 310, MPV 9.3, Immature Gran % (Auto) 0.300, Neut % (Auto) 69.0, Lymph % (Auto) 18.5 L, [place] % (Auto) 8.7, Eos % (Auto) 2.8, Baso % (Auto) 0.7, Absolute Neuts (auto) 4.6, Absolute Lymphs (auto) 1.24, Nucleated RBC % 0 03/08/22 04:12: Sodium 140, Potassium 4.3, Chloride 106, Carbon Dioxide 31.0, Anion Gap 3 L, BUN 38 H, Creatinine 0.93, Estim Creat Clear Calc 105.46, Est GFR (MDRD) Af Amer 111, Est GFR (MDRD) Non-Af 92, BUN/Creatinine Ratio 40.8 H, Glucose 101, Calcium 8.2 L 03/08/22 06:24: POC Glucose 131 H Micro: Microbiology 03/05/22 14:56 Urine, Clean Catch Legionella Antigen - Final 03/05/22 14:56 Urine, Clean Catch Streptococcus pneumoniae Antigen (M - Final 03/04/22 16:24 Nasal Secretion SARS-CoV-2 & FLU Antigen (Rapid) - Final Physical Exam Narrative GENERAL: cooperative HEENT: Atraumatic; normocephalic EYES; Anicteric, Normal Conjunctiva NECK; supple, normal thyroid, RESPIRATORY: Diminished to auscultation CARDIOVASCULAR: Regular S1 S2, GI: soft, normoactive bowel sounds, : No Renal angle tenderness; EXTREMITIES: Bilateral chronic stasis dermatitis MUSCULOSKELETAL: no muscle wasting NEURO: Awake; no lateralizing signs. SKIN: As described above PSYCH; Flat affect Assessment & Plan Assessment/Plan (1) CHF (congestive heart failure): (2) Atrial fibrillation with RVR: (3) Acute hypoxemic respiratory failure: (4) Sleep apnea: QUALIFIERS: Sleep apnea type: obstructive Qualified Code(s): G47.33 - Obstructive sleep apnea (adult) (pediatric) PLAN: Plan Patient is a 47-year-old gentleman with BMI of 52.1 who presented with shortness of breath patient was found to have new onset A. fib with RVR. He was also assessed to be in acute congestive heart failure admitted to monitored bed for subsequent management 1.? New onset A. fib with RVR ? Patient has been admitted to a monitored bed treated with IV Cardizem with plans to switch to oral beta-blockers. Was also placed on systemic anticoagulation with Lovenox and consultation placed to cardiology ? 03/06/2022 patient switched from Lovenox to apixaban. Cardizem drip has since been discontinued patient is on beta-blockers. 2.? Acute congestive heart failure with preserved ejection fraction ? Managed with diuretics echo ordered for EF assessment ? 03/06/2022. 2D echo obtained the day prior did show ejection fraction of 35 %. Moderate global hypokinesis of the left ventricle. Normal LV size. Mildly dilated aortic root. Patient is on diuresis did continue 3. Large right-sided pleural effusion Suspected to be secondary to patient congestive heart failure if patient does not improve with diuresis so placed an order for ultrasound-guided thoracocentesis 4.? Elevated D-dimer ? CTA obtained demonstrated large right-sided pleural effusion no pulmonary embolism. There was presence of bilateral pneumonia 5. Pneumonia - Suspected to be secondary to pneumonia with multidrug-resistant organisms gi leonard patient recent admission 6. Class III obesity with BMI of 50.2 ? Complicating care, weight loss advised 7. Obesity hypoventilation syndrome ? Patient had apparently been prescribed BiPAP at night he has however not been compliant counseled on the need to use his BiPAP as prescribed 8. Anxiety disorder with panic attack ? Patient is on Atarax as needed 9.? Hypertension - Blood pressure controlled, home medications continued with dose adjustment as needed 10. DVT prophylaxis Lovenox 11. Physical deconditioning - Requested for PT OT eval and social studies teacher to assist with discharge planning GENARO
[2022-03-08] MEDS: APIXABAN 5 MG TABLET PO (08:36)
[2022-03-08] MEDS: Furosemide 40 MG Tablet PO (08:37)
[2022-03-08] MEDS: Metoprolol Tartrate 50 MG Tablet PO (08:37)
[2022-03-08] MEDS: Petrolatum 33% Tube 1 APPLIC TOPICAL (08:38)
[2022-03-08 10:50] LABS: Bedside Glucose 162 mg/dL (74-106)
--- NOTE | 2022-03-08 11:09 | CASEMGMT ---
VALERIANO MATSON updated that patient will need home oxygen at discharge. RN HUYEN updated patient regarding home oxygen at discharge and would like [facility]. Script received and referral sent to [facility] via [employer]. VALERIANO MATSON called Janelle at [facility] and updated on patient discharge. Patient had no further questions or concerns. Patient to be provided with pulse ox at discharge.
--- NOTE | 2022-03-08 12:15 | CASEMGMT ---
Addendum entered by Lindsay Saldana 03/08/22 13:21: VALERIANO MATSON in to discuss home oxygen setup with patient. Patient states he is going to his ex-'s house at discharge. Patient provided Marion's number to verify address. VALERIANO MATSON called and spoke to Marion, she provided address for her mother in law next door to have oxygen delivered to [id number] [place] [address]. VALERIANO MATSON called [facility] and updated on address for equipment delivery. [facility] requesting family stop at branch to pickling grader equipment. VALERIANO MATSON called Marion to see if they could pickup equipment from [facility]. Amaya confirms that they can pickling grader equipment when they pickup patient from his house. VALERIANO MATSON updated patient regarding coordination of equipment pick with ex , patient voiced understanding. Patient had no further questions or concerns at this time. Original Note: VALERIANO MATSON updated by Janelle from [facility] that patient does not currently have electricity at his apartment and that he was going to someone else's home. VALERIANO MATSON in to patient's room to inquire about living conditions. Patient states they are currently using extension cords for electricity supply. Patient states that his father is working on getting electricity back today. Patient states he is going to his home first for oxygen delivery and then going to in-laws house overnight. VALERIANO MATSON updated Janelle at [facility] regarding wear to deliver oxygen setup.
== END 2022-03-08 13:51 | disposition home or self-care (01) | DRG 291 ==
LOC: ED 18:30 → PCU 19:34
PROVIDERS: Nurse Practitioner; Emergency Provider Emergency Medicine; PCP Family Medicine; Visit Provider Internal Medicine
DX: I11.0 Hypertensive heart disease with heart failure (principal); J96.01 Acute respiratory failure with hypoxia; J18.9 Pneumonia, unspecified organism; I50.31 Acute diastolic (congestive) heart failure; J44.0 Chronic obstructive pulmonary disease with (acute) lower respiratory infection; E66.2 Morbid (severe) obesity with alveolar hypoventilation; N17.9 Acute kidney failure, unspecified; J90 Pleural effusion, not elsewhere classified; Z68.43 Body mass index [BMI] 50.0-59.9, adult; Z16.24 Resistance to multiple antibiotics; I27.20 Pulmonary hypertension, unspecified; I48.91 Unspecified atrial fibrillation; J44.9 Chronic obstructive pulmonary disease, unspecified; I77.819 Aortic ectasia, unspecified site; F17.210 Nicotine dependence, cigarettes, uncomplicated; F41.0 Panic disorder [episodic paroxysmal anxiety]
CPT/HCPCS: 31500; 36415; 36600; 71045; 71275; 80048; 80053; 80076; 82803; 82962; 83735; 83880; 84100; 84443; 84484; 85025; 85379; 87040; 87428; 87449; 93005; 93306; 94002; 94003; 94640; 99251; 99285; Q9957; Q9967; A4216; C8929; G0463; J1940

== ENCOUNTER 2022-03-29 13:03 | Emergency (ER) | payer BC, MEDICAID, SELFPAY ==
[2022-03-29 13:03] VITALS: BP 130/111; PULSE 76; RESP 20; TEMP 36.1; O2SAT 97; BMI 50.7
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
[2022-03-29 14:46] LABS: Absolute Lymphocyte Count 1.05 X10^3/uL (0.83-4.51); Absolute Neutrophil Count 5.5 X10^3/uL (2.0-7.7); Basophil# 0.03 X10^3/uL; Basophil% 0.4 % (0-1); Eosinophil# 0.26 X10^3/uL; Eosinophils% 3.4 % (0-5); Hematocrit 36.7 % (40-54); Hemoglobin 11.7 g/dL (13.0-16.5); Lymphocyte # 1.05 X10^3/ul (0.83-4.51); Lymphocyte % 13.9 % (19-41); Mean Corp Hgb Conc 31.9 g/dL (32-36); Mean Corpuscular Volume 81.6 fL (80-94); Mean Platelet Vol. 9.6 fl (6.2-12.0); Monocyte# 0.63 X10^3/uL; Monocyte% 8.4 % (0-10); NRBC Flagged by Analyzer 0 % (0-5); Neutrophil # 5.54 X10^3/uL (2.7-7.7); Neutrophil % 73.5 % (47-70); Platelet Count 292 K/mm3 (150-450); RBC Distribution Width CV 15.4 % (11.6-14.6); RBC Distribution Width SD 46.2 fl (35.1-43.9); White Blood Count 7.5 K/mm3 (4.4-11.0)
[2022-03-29 14:50] LABS: Erythrocyte Sedimentation Rate 71 mm/hr (0-20)
[2022-03-29 15:01] LABS: Anion Gap 7 (5-15); BUN 23 mg/dL (7-18); Calcium,Total 8.7 mg/dL (8.5-10.1); Chloride 102 mmol/L (98-107); Creatinine, Serum 1.15 mg/dL (0.70-1.30); EST Glomerular Filtration Rate 72 mL/min (>60); Est Glom Filt Rate - Afr Amer 87 mL/min (>60); Estimated Creatinine Clearance 85.29 ml/min; Glucose 100 mg/dL (74-106); Potassium 3.5 mmol/L (3.5-5.1); Sodium Level 135 mmol/L (136-145)
[2022-03-29] MEDS: Cephalexin 250 MG Capsule 500 MG PO (15:17)
[2022-03-29 15:18] VITALS: BP 112/86; PULSE 93; RESP 18; O2SAT 97
== END 2022-03-29 15:24 | disposition home or self-care (01) ==
PROVIDERS: Emergency Provider Student in an Organized Health Care Education/Training Program; PCP Family Medicine; Visit Provider Student in an Organized Health Care Education/Training Program
DX: L03.116 Cellulitis of left lower limb (principal); I50.9 Heart failure, unspecified; I48.91 Unspecified atrial fibrillation; F17.210 Nicotine dependence, cigarettes, uncomplicated; L03.115 Cellulitis of right lower limb
CPT/HCPCS: 80048; 85025; 85652; 86140; 99283; A4216

== ENCOUNTER → 2022-06-20 | Outpatient (CLI) | payer MEDICAID, SELFPAY | END | disposition home or self-care (01) | PROVIDERS: PCP Internal Medicine; Visit Provider Internal Medicine Critical Care Medicine | DX: G47.33 Obstructive sleep apnea (adult) (pediatric) (principal) | CPT/HCPCS: 95811 ==

== ENCOUNTER → 2022-07-31 | Outpatient (CLI) | payer MEDICAID, SELFPAY | END | disposition home or self-care (01) | LOC: SL 19:56 | PROVIDERS: PCP Internal Medicine; Referring Provider Nurse Practitioner Acute Care; Visit Provider Nurse Practitioner Acute Care | DX: G47.33 Obstructive sleep apnea (adult) (pediatric) (principal) | CPT/HCPCS: 95811 ==

== ENCOUNTER → 2022-08-23 | Outpatient (CLI) | payer MEDICAID, SELFPAY | END | disposition home or self-care (01) | LOC: SL 13:30 | PROVIDERS: PCP Internal Medicine; Visit Provider Nurse Practitioner Acute Care | DX: G47.33 Obstructive sleep apnea (adult) (pediatric) (principal) ==

== ENCOUNTER → 2022-09-14 | Outpatient (CLI) | payer MEDICAID, SELFPAY ==
[2022-09-14 13:32] VITALS: PULSE 100; PULSE 103; PULSE 64; PULSE 70; PULSE 85; PULSE 94; PULSE 97; O2SAT 91; O2SAT 92; O2SAT 93; O2SAT 95; O2SAT 97
--- NOTE | 2022-09-15 05:47 | WT_ITS ---
PSN 6 Minute Walk Test 6 Minute Walk Test 6 Minute Walk Test: 6 Minute Walk Test PSN:6-Minute Walk Test Start: 09/14/22 13:31 Freq: Status: Active Protocol: [id number].6MINW Document 09/14/22 13:32 [facility] (Rec: 09/14/22 13:37 [facility] [id number]) 6 Minute Walk Test Date Performed 09/14/22 Time Performed 12:30 Height 6 ft Weight: 181.437 kg Weight in Pounds 400.[address]: Edgar Ochoa Assistive device used: None Pre-test Oxygen Delivery Method Room Air Pulse Ox (%) 95 Pulse Rate (60-100 beats/min) 64 Dyspnea Eda Scale (0-10) 2 1st minute Oxygen Delivery Method Room Air Pulse Ox (%) 95 Pulse Rate (60-100 beats/min) 85 Dyspnea Eda Scale (0-10) 2 Number of Rests Taken 0 2nd minute Oxygen Delivery Method Room Air Pulse Ox (%) 91 Pulse Rate (60-100 beats/min) 94 Dyspnea Eda Scale (0-10) 2 Number of Rests Taken 0 3rd minute Oxygen Delivery Method Room Air Pulse Ox (%) 92 Pulse Rate (60-100 beats/min) 100 Dyspnea Eda Scale (0-10) 2 Number of Rests Taken 1 4th minute Oxygen Delivery Method Room Air Pulse Ox (%) 93 Pulse Rate (60-100 beats/min) 103 H Dyspnea Eda Scale (0-10) 2 Number of Rests Taken 0 5th minute Oxygen Delivery Method Room Air Pulse Ox (%) 95 Pulse Rate (60-100 beats/min) 97 Dyspnea Eda Scale (0-10) 2 Number of Rests Taken 0 6th minute Oxygen Delivery Method Room Air Pulse Ox (%) 97 Pulse Rate (60-100 beats/min) 94 Dyspnea Eda Scale (0-10) 2 Number of Rests Taken 0 Post-test Oxygen Delivery Method Room Air Pulse Ox (%) 97 Pulse Rate (60-100 beats/min) 70 Dyspnea Eda Scale (0-10) 2 Full Laps Walked 13 Partial Lap, Number of Tiles Walked 34 Total Distance Walked (ft) 801 Interpretation Interpretation: , The patient was noted to be 95% on room air but did desaturate as low as 91% during testing. Patient also had some element of reflexive tachycardia with a peak heart rate of 103 bpm. In total, the patient travel 801 feet over the course of 6 minutes on room air with no assistive devices and 1 break. These findings are consistent with a respiratory limitation exercise tolerance. Recommendations Recommendations: No supplemental oxygen is indicated at this time. However, patient will need to be followed closely given level of desaturation.
== END | disposition home or self-care (01) ==
LOC: PSN 12:29
PROVIDERS: PCP Internal Medicine; Referring Provider Internal Medicine Critical Care Medicine; Visit Provider Internal Medicine Critical Care Medicine
DX: R06.00 Dyspnea, unspecified (principal)
CPT/HCPCS: 94618

== ENCOUNTER → 2022-09-20 | Outpatient (CLI) | payer MEDICAID, SELFPAY ==
--- NOTE | 2022-09-21 10:24 | PFT ---
INTRODUCTION: The patient is a 47-year-old male that presents for pulmonary function studies secondary to a diagnosis of dyspnea. Respiratory therapy reported good patient effort. Bronchodilators were used during testing. INTERPRETATION: Forced expiration spirometry demonstrates no evidence of a large airways obstructive ventilatory defect. There was a significant response to aerosolized bronchodilators. Spirograms are of good quality and plateau normally. Body plethysmography was performed and revealed an elevated RV to 137% of predicted, indicative of underlying air trapping. Diffusing capacity by single breath CO was reduced at 72% of predicted. IMPRESSION: Stigmata of small airways disease with significant bronchodilator response and associated air trapping with mild reduction in diffusing capacity.
== END | disposition home or self-care (01) ==
LOC: PSN 12:18
PROVIDERS: PCP Internal Medicine; Referring Provider Internal Medicine Critical Care Medicine; Visit Provider Internal Medicine Critical Care Medicine
DX: R06.00 Dyspnea, unspecified (principal)
CPT/HCPCS: 94060; 94726; 94729

== ENCOUNTER 2022-11-01 17:34 | Emergency (ER) | payer MEDICAID, SELFPAY ==
[2022-11-01] VITALS (7 sets, daily range): BP systolic 101–149; BP diastolic 59–111; PULSE 91–120; RESP 15–25; TEMP 36.9; O2SAT 93–100; BMI 56.6
--- NOTE | 2022-11-01 18:00 | EKG12_ITS ---
Test Reason : SOB Blood Pressure : / mmHG Vent. Rate : 121 BPM Atrial Rate : 000 BPM P-R Int : 000 ms QRS Dur : 116 ms QT Int : 346 ms P-R-T Axes : 000 -06 069 degrees QTc Int : 491 ms Atrial fibrillation with rapid ventricular response with premature ventricular or aberrantly conducte d complexes Nonspecific ST and T wave abnormality Abnormal ECG Confirmed by MARIA EUGENIA IGLESIAS, AVIVA ([id number]), film and video editor JORGE FOSTER ([id number]) on 11/02/2022 12:58:04 PM Referred By: TICO Confirmed By:AVIVA DEL CID MD
--- NOTE | 2022-11-01 18:04 | RAD_ITS ---
STUDY: X-RAY CHEST REASON FOR EXAM: Male, 47 years old. chest pain TECHNIQUE: Single AP portable view of the chest. COMPARISON: 03/04/2022 FINDINGS: The lungs are clear and expanded. There is no demonstrated pleural abnormality. There is moderate cardiac enlargement. Normal mediastinum and apolinar. Normal visualized pulmonary arteries. Normal visualized aortic arch and descending thoracic aorta. Normal visualized thoracic spine. Normal visualized ribs, clavicles, and shoulders. There is no demonstrated abnormality of the visualized soft tissue structures of the upper abdomen. RAD/Chest 1 View (Portable) IMPRESSION: No active disease. Cardiomegaly. Electronically Signed: Naldo Foreman MD at 18:49 EDT ,
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
[2022-11-01] MEDS: Aspirin 81 MG TAB.CHEW 324 MG PO (18:13)
[2022-11-01] MEDS: 0.9% Normal Saline 1,000 ML 1000 ML IV (18:14)
[2022-11-01 18:28] LABS: Absolute Lymphocyte Count 1.04 X10^3/uL (0.83-4.51); Absolute Neutrophil Count 5.8 X10^3/uL (2.0-7.7); Basophil# 0.06 X10^3/uL; Basophil% 0.8 % (0-1); Eosinophil# 0.16 X10^3/uL; Eosinophils% 2.1 % (0-5); Hemoglobin 14.3 g/dL (13.0-16.5); Lymphocyte # 1.04 X10^3/ul (0.83-4.51); Lymphocyte % 13.7 % (19-41); Mean Corp Hgb Conc 32.5 g/dL (32-36); Mean Corpuscular Hgb 28.6 pg (27.0-32.0); Mean Platelet Vol. 9.9 fl (6.2-12.0); Monocyte% 6.6 % (0-10); NRBC Flagged by Analyzer 0 % (0-5); Neutrophil # 5.75 X10^3/uL (2.7-7.7); Platelet Count 264 K/mm3 (150-450); RBC Distribution Width CV 14.8 % (11.6-14.6); RBC Distribution Width SD 47.6 fl (35.1-43.9); White Blood Count 7.6 K/mm3 (4.4-11.0)
[2022-11-01 18:46] LABS: Anion Gap 11 (5-15); BUN 54 mg/dL (7-18); BUN/Creat Ratio 21.2 RATIO (10-20); Calcium,Total 8.9 mg/dL (8.5-10.1); Chloride 103 mmol/L (98-107); Creatinine, Serum 2.55 mg/dL (0.70-1.30); EST Glomerular Filtration Rate 29 mL/min (>60); Est Glom Filt Rate - Afr Amer 35 mL/min (>60); Estimated Creatinine Clearance 38.46 ml/min; Glucose 94 mg/dL (74-106); Potassium 4.2 mmol/L (3.5-5.1); Sodium Level 139 mmol/L (136-145); Troponin-I HS (w/2H Reflex) 14 pg/mL (3.0-78.0)
[2022-11-01 20:18] LABS: Reflex Troponin-HS? (from REC) Y
[2022-11-01 21:20] LABS: Troponin-I HS 17 pg/mL (3.0-78.0)
== END 2022-11-01 22:51 | disposition home or self-care (01) ==
PROVIDERS: Emergency Provider Emergency Medicine; PCP Internal Medicine; Visit Provider Emergency Medicine
DX: R07.9 Chest pain, unspecified (principal); N17.9 Acute kidney failure, unspecified; I50.9 Heart failure, unspecified; I48.91 Unspecified atrial fibrillation; E86.0 Dehydration; Z87.891 Personal history of nicotine dependence; Z79.01 Long term (current) use of anticoagulants; Z79.899 Other long term (current) drug therapy
CPT/HCPCS: 71045; 80048; 84484; 85025; 93005; 96360; 99284; J7030; A4216

== ENCOUNTER 2023-08-27 11:34 | Emergency (ER) | payer MEDICAID, SELFPAY ==
[2023-08-27 11:35] VITALS: BP 128/89; PULSE 99; RESP 16; TEMP 36.1; O2SAT 97
--- NOTE | 2023-08-27 12:28 | RAD_ITS ---
EXAM: XR LEFT ANKLE COMPLETE, 3 OR MORE VIEWS CLINICAL INDICATION: injury TECHNIQUE: Frontal, lateral and oblique views of the left ankle. COMPARISON: No relevant prior studies available. FINDINGS: BONES/JOINTS: Deformity of the calcaneus and proximal portion of the fifth metatarsal suggestive of old fractures. No acute fracture or subluxation. Dorsal and plantar calcaneal spurring is present. SOFT TISSUES: Prominent soft tissue swelling. No radiopaque foreign body. RAD/Ankle min 3 Views IMPRESSION: Chronic fracture deformities of the calcaneus and fifth metatarsal. Prominent soft tissue swelling. Electronically Signed: Chase Gray MD at 12:48 EDT ,
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
[2023-08-27 12:58] VITALS: BP 124/69; PULSE 75; RESP 16; TEMP 36.8; O2SAT 98
== END 2023-08-27 13:01 | disposition home or self-care (01) ==
LOC: ED 12:48
PROVIDERS: Emergency Provider Emergency Medicine; PCP Internal Medicine; Visit Provider Emergency Medicine
DX: S93.402A Sprain of unspecified ligament of left ankle, initial encounter (principal); I50.9 Heart failure, unspecified; I48.91 Unspecified atrial fibrillation; Z87.891 Personal history of nicotine dependence; Z79.01 Long term (current) use of anticoagulants; W01.10XA Fall on same level from slipping, tripping and stumbling with subsequent striking against unspecified object, initial encounter; Y92.89 Other specified places as the place of occurrence of the external cause; Z79.899 Other long term (current) drug therapy
CPT/HCPCS: 73610; 99282

== ENCOUNTER 2023-09-23 06:09 | Inpatient (IN) | payer MEDICAID, SELFPAY ==
[2023-09-23] VITALS (14 sets, daily range): BP systolic 93–145; BP diastolic 57–84; PULSE 64–112; RESP 16–25; TEMP 36.4–37.6; O2SAT 90–99; BMI 60.9; BMI 58.9
--- NOTE | 2023-09-23 06:18 | CT_ITS ---
HISTORY: Flank pain, evaluate for kidney stone. TECHNIQUE: Helically acquired images were obtained of the abdomen and pelvis without oral or IV contrast. A radiation dose optimization technique was used for this scan. 713 images. COMPARISON: 04/06/2021. FINDINGS: Artifact from body habitus. LOWER CHEST: Lung bases clear. BOWEL: Bowel nondilated. No periappendiceal inflammation. Colonic diverticulosis without focal pericolonic inflammatory change. PERITONEUM: No significant free fluid. LIVER: Fatty infiltration. GALLBLADDER/BILIARY TREE: Gallbladder present. SPLEEN/PANCREAS/ADRENAL GLANDS: Nonenlarged. KIDNEYS AND URETERS: Mild right hydroureteronephrosis and perinephric stranding without nephrolithiasis or obstructing ureteral calculus. Mild left perinephric stranding with slightly increased moderate hydroureteronephrosis, in part due to the large left inguinal hernia containing a portion of the left ureter. VESSELS: No abdominal aortic aneurysm. PELVIC ORGANS: Distended urinary bladder with the Gaines catheter balloon in the prostatic urethra. Mild presacral edema. Trace air in the bladder with mild perivesical stranding. ABDOMINAL WALL: Large left inguinal hernia containing fat and left ureter extending into the left scrotum. Fat-containing right inguinal hernia. BONES: Degenerative change. CT/Abdomen/Pelvis without Cont IMPRESSION: Distended urinary bladder with the Gaines catheter balloon malpositioned in the prostatic urethra; recommend removal or repositioning. Probable mild cystitis. Left greater than right hydronephrosis without nephrolithiasis or obstructing ureteral calculus, concerning for bladder outlet obstruction. Left hydronephrosis likely in part due to the left ureter in a large left inguinal hernia extending into the scrotum in combination with bladder outlet obstruction secondary to malpositioned Gaines catheter balloon. Colonic diverticulosis without acute diverticulitis. Hepatic steatosis. Electronically Signed: Christy Zuleta MD at 8:20 EDT ,
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
[2023-09-23] MEDS: Ondansetron 4 MG/2 ML Vial IV (06:38)
[2023-09-23] MEDS: morphine 8 MG/ML Syringe IV (06:38)
[2023-09-23 06:49] LABS: Anion Gap 12 (5-15); BUN 29 mg/dL (7-18); BUN/Creat Ratio 12.8 RATIO (10-20); Calcium,Total 8.7 mg/dL (8.5-10.1); Chloride 104 mmol/L (98-107); Creatinine, Serum 2.27 mg/dL (0.70-1.30); EST Glomerular Filtration Rate 33 mL/min (>60); Est Glom Filt Rate - Afr Amer 39 mL/min (>60); Estimated Creatinine Clearance 70.53 ml/min; Glucose 161 mg/dL (74-106); Potassium 4.1 mmol/L (3.5-5.1); Sodium Level 136 mmol/L (136-145)
[2023-09-23 07:03] LABS: Absolute Lymphocyte Count 0.32 X10^3/uL (0.83-4.51); Absolute Neutrophil Count 9.7 X10^3/uL (2.0-7.7); Basophil# 0.02 X10^3/uL; Basophil% 0.2 % (0-1); Eosinophil# 0.15 X10^3/uL; Eosinophils% 1.5 % (0-5); Hematocrit 35.9 % (40-54); Hemoglobin 11.6 g/dL (13.0-16.5); Lymphocyte # 0.32 X10^3/ul (0.83-4.51); Lymphocyte % 3.1 % (19-41); Mean Corp Hgb Conc 32.3 g/dL (32-36); Mean Corpuscular Hgb 27.5 pg (27.0-32.0); Mean Corpuscular Volume 85.1 fL (80-94); Mean Platelet Vol. 9.8 fl (6.2-12.0); Monocyte# 0.11 X10^3/uL; Monocyte% 1.1 % (0-10); NRBC Flagged by Analyzer 0 % (0-5); Neutrophil # 9.66 X10^3/uL (2.7-7.7); Neutrophil % 93.8 % (47-70); POSITIVE DIFFERENTIAL YES; Platelet Count 233 K/mm3 (150-450); RBC Distribution Width CV 15.3 % (11.6-14.6); RBC Distribution Width SD 46.7 fl (35.1-43.9); Red Blood Count 4.22 M/mm3 (4.6-6.2); White Blood Count 10.3 K/mm3 (4.4-11.0)
[2023-09-23 07:54] LABS: Mucous, Urine 0 SEEN /hpf (<or=2+)
[2023-09-23 08:02] LABS: Glucose, Dipstick Normal (Normal); Ketone-Dipstick Negative (Negative); Leukocyte Esterase-Dipstick 500 /ul (Negative); Nitrite-Dipstick Positive (Negative); Occult Blood-Urine 250 /ul (Negative); Protein-Dipstick 100 mg/dl (Negative); Urine Bilirubin Dipstick Negative (Negative); Urine Clarity Turbid (Clear); Urine Urobilinogen Normal (Normal)
[2023-09-23 08:04] LABS: Color, Urine SEE COMMENT BELOW (Yellow)
[2023-09-23 08:16] LABS: Red Blood Cells-Urine 25-50 SEEN /hpf (0-5); White Blood Cells >100 SEEN /hpf (0-5)
[2023-09-23 08:17] LABS: Bacteria 3+ /hpf (None Seen); Renal Epithelial Cells 0-5 SEEN /hpf (0-5); Squamous Epithelial Cells - UA 0-5 SEEN /hpf (0-5)
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
[2023-09-23] MEDS: Ceftriaxone 1 GM/50 ML BAG IV (10:15)
--- NOTE | 2023-09-23 10:52 | ED.RN ---
Belongings double bagged in the hazmat room
[2023-09-23] MEDS: 0.9% Normal Saline (1000mL) 1,000 ML 150 ML IV ×2 (11:52→18:24)
[2023-09-23] MEDS: Cefepime HCl 2 GM in 0.9% Normal Saline (100mL MB+) 100 ML IV ×2 (13:40→21:10)
[2023-09-23] MEDS: Acetaminophen 500 MG Tablet 1000 MG PO ×2 (13:43→21:05)
[2023-09-23] MEDS: Furosemide 80 MG Tablet PO (17:03)
[2023-09-23] MEDS: Metoprolol Tartrate 50 MG Tablet PO (21:06)
[2023-09-23] MEDS: APIXABAN 5 MG TABLET PO (21:06)
[2023-09-24] VITALS (7 sets, daily range): BP systolic 106–128; BP diastolic 55–71; PULSE 65–73; RESP 17–18; TEMP 36.6–36.8; O2SAT 96–99; BMI 59.1
[2023-09-24] MEDS: 0.9% Normal Saline (1000mL) 1,000 ML 150 ML IV ×2 (01:49→09:17)
[2023-09-24] MEDS: Levothyroxine 25 MCG TABLET PO (05:02)
[2023-09-24] MEDS: Acetaminophen 500 MG Tablet 1000 MG PO ×3 (05:02→21:10)
[2023-09-24] MEDS: Cefepime HCl 2 GM in 0.9% Normal Saline (100mL MB+) 100 ML IV ×3 (05:04→21:10)
[2023-09-24 06:41] LABS: Absolute Lymphocyte Count 0.48 X10^3/uL (0.83-4.51); Absolute Neutrophil Count 7.2 X10^3/uL (2.0-7.7); Basophil# 0.04 X10^3/uL; Basophil% 0.5 % (0-1); Eosinophils% 3.5 % (0-5); Hematocrit 33.7 % (40-54); Hemoglobin 10.5 g/dL (13.0-16.5); Lymphocyte # 0.48 X10^3/ul (0.83-4.51); Lymphocyte % 5.6 % (19-41); Mean Corp Hgb Conc 31.2 g/dL (32-36); Mean Corpuscular Hgb 27.3 pg (27.0-32.0); Mean Corpuscular Volume 87.5 fL (80-94); Mean Platelet Vol. 9.7 fl (6.2-12.0); Monocyte# 0.48 X10^3/uL; Monocyte% 5.6 % (0-10); NRBC Flagged by Analyzer 0 % (0-5); Neutrophil # 7.21 X10^3/uL (2.7-7.7); Neutrophil % 84.4 % (47-70); POSITIVE DIFFERENTIAL YES; Platelet Count 191 K/mm3 (150-450); RBC Distribution Width CV 15.5 % (11.6-14.6); RBC Distribution Width SD 49.4 fl (35.1-43.9); Red Blood Count 3.85 M/mm3 (4.6-6.2); White Blood Count 8.5 K/mm3 (4.4-11.0)
[2023-09-24 07:14] LABS: Anion Gap 7 (5-15); BUN 34 mg/dL (7-18); BUN/Creat Ratio 12.5 RATIO (10-20); Calcium,Total 8.2 mg/dL (8.5-10.1); Chloride 106 mmol/L (98-107); Creatinine, Serum 2.73 mg/dL (0.70-1.30); EST Glomerular Filtration Rate 26 mL/min (>60); Est Glom Filt Rate - Afr Amer 32 mL/min (>60); Estimated Creatinine Clearance 57.51 ml/min; Glucose 117 mg/dL (74-106); Magnesium 2.3 mg/dL (1.6-2.6); Phosphorus 3.7 mg/dL (2.5-4.9); Sodium Level 135 mmol/L (136-145)
[2023-09-24] MEDS: 0.9% Saline Lock 10 ML Syringe IV ×2 (09:20→21:10)
[2023-09-24] MEDS: Furosemide 80 MG Tablet PO ×2 (10:03→17:01)
[2023-09-24] MEDS: Metoprolol Tartrate 50 MG Tablet PO ×2 (10:03→21:10)
[2023-09-24] MEDS: APIXABAN 5 MG TABLET PO ×2 (10:03→21:10)
[2023-09-24] MEDS: Allopurinol 100 MG Tablet PO (10:03)
[2023-09-24] MEDS: Amiodarone 200 MG Tablet PO (10:03)
[2023-09-24] MEDS: Cholecalciferol (Vit D3) 125 MCG CAPSULE (5,000 UNITS) PO (10:03)
--- NOTE | 2023-09-24 10:45 | CASEMGMT ---
RN HUYEN Face to Face with patient for initial transition planning/care coordination assessment. RN CM introduced self and role at [facility]. Patient lying in bed, alert and oriented. Patient willing to participate in assessment and is able to answer all questions appropriately. Care providers, pharmacy, and demographics verified. PCP: [facility] Specialists: Choco, examining chair assembler; Caridad Quevedo, yacht hand; Jania Nephrology and urologist Preferred Pharmacy: [facility] Insurance: [employer] Prescription Benefit: yes Living Will/HPOA: none LNOK: daughter Living Arrangements: Patient lives with ex father in law in a 2nd floor apartment. Patient is independent and able to ambulate stairs. Transportation: family, friends DME/HHC: Patient has raised toilet, walker, bipap, nebulizer, pulse ox, and home oxygen with portability through [employer]. Patient denies previous HHC. Patient has been to [facility] previously. Patient wishes to discharge home, denies need for home health at this time. Patient states he has no further needs or concerns at this time. CM to follow for discharge planning needs that may arise. Disposition Plan: Patient to discharge home with family support and follow-up plans in place. Lindsay STORY, RN, CM
--- NOTE | 2023-09-24 12:26 | PCM.PN.HOSP ---
Reason for Visit Reason for Visit: Diagnoses Unilateral inguinal hernia, without obstruction or gangrene, not specified as recurrent (09/23/23) Other retention of urine (09/23/23) Subjective Subjective Patient seen admit to significant improvement in overall clinical condition. Cultures sent on admission results pending Objective Data Objective Data Vital Signs: Vital Signs Temp Pulse Resp BP Pulse Ox O2 Del Method O2 Flow Rate 97.8 F 67 18 117/71 99 Nasal Cannula 3 09/24/23 10:00 09/24/23 10:03 09/24/23 10:00 09/24/23 10:00 09/24/23 10:00 09/24/23 10:00 09/24/23 10:00 Oxygen Flow Rate (L/min) 3 Oxygen Delivery Method Nasal Cannula Weight: 197.6 kg Body Mass Index (BMI) 59.1 Intake & Output: Intake and Output for Last 24 Hours 09/22/23 09/23/23 09/24/23 23:59 23:59 23:59 Intake Total 3045 / 3045 2445 / 2445 Output Total 2200 / 2200 3550 / 3550 Balance 845 / 845 -1105 / -1105 Lab / Micro Data 09/24/23 06:11 09/24/23 06:11 Labs: Laboratory Results - last 24 hr 09/24/23 06:11: WBC 8.5, RBC 3.85 L, Hgb 10.5 L, Hct 33.7 L, MCV 87.5, MCH 27.3, MCHC 31.2 L, RDW Std Deviation 49.4 H, RDW Coeff of [place]air 15.5 H, Plt Count 191, MPV 9.7, Immature Gran % (Auto) 0.400, Neut % (Auto) 84.4 H, Lymph % (Auto) 5.6 L, [place] % (Auto) 5.6, Eos % (Auto) 3.5, Baso % (Auto) 0.5, Absolute Neuts (auto) 7.2, Absolute Lymphs (auto) 0.48 L, Nucleated RBC % 0, Sodium 135 L, Potassium 4.0, Chloride 106, Carbon Dioxide 22.0, Anion Gap 7, BUN 34 H, Creatinine 2.73 H, Estim Creat Clear Calc 57.51, Est GFR (MDRD) Af Amer 32 L, Est GFR (MDRD) Non-Af 26 L, BUN/Creatinine Ratio 12.5, Glucose 117 H, Calcium 8.2 L, Phosphorus 3.7, Magnesium 2.3 Physical Exam Narrative GENERAL: cooperative HEENT: Atraumatic; normocephalic EYES; Anicteric, Normal Conjunctiva NECK; supple, normal thyroid, RESPIRATORY: Diminished to auscultation CARDIOVASCULAR: Regular S1 S2, GI: soft, normoactive bowel sounds, : Left inguinal hernia EXTREMITIES: No edema, no clubbing, MUSCULOSKELETAL: no muscle wasting NEURO: Awake; no lateralizing signs. SKIN: No Rash PSYCH; Flat affect Assessment & Plan Assessment/Plan (1) Acute urinary retention: (2) Inguinal hernia, left: PLAN: Plan 48 M with multiple comorbidities who presented with right flank pain. Patient symptoms started on the morning of his admission. Patient in addition did complain of subjective fever as well as chills and rigors. In view of worsening symptoms patient presented to the emergency department. Imaging studies obtained distended urinary bladder with the Gaines catheter balloon malpositioned in the prostatic urethra; recommend removal or repositioning. Probable mild cystitis. Left greater than right hydronephrosis without nephrolithiasis or obstructing ureteral calculus, concerning for bladder outlet obstruction. Left hydronephrosis likely in part due to the left ureter in a large left inguinal hernia extending into the scrotum in combination with bladder outlet obstruction secondary to malpositioned Gaines catheter balloon. Urinalysis obtained also came back consistent with suspected cystitis antibiotics initiated per protocol after the urologist on-call Dr Ross had been notified patient admitted to regular nursing floor for further management 1. Acute complicated UTI ? Urine and blood culture sent patient started on cefepime ? 09/24/2023;Patient seen admit to significant improvement in overall clinical condition. Cultures sent on admission results pending 2. Obstructive uropathy ? Imaging studies demonstrated Imaging studies obtained distended urinary bladder with the Gaines catheter balloon malpositioned in the prostatic urethra; recommend removal or repositioning. Probable mild cystitis. Left greater than right hydronephrosis without nephrolithiasis or obstructing ureteral calculus, concerning for bladder outlet obstruction. Left hydronephrosis likely in part due to the left ureter in a large left inguinal hernia extending into the scrotum in combination with bladder outlet obstruction secondary to malpositioned Gaines catheter balloon.. Consult placed to Dr Ross with urology ? 09/24/2023; consult from urology pending 3. Paroxysmal A-fib ? Rate controlled on systemic anticoagulation with apixaban 4. Chronic congestive heart failure with reduced ejection fraction ? EF 35% on an echo obtained on 03/04/2022 patient remains euvolemic on torsemide 5. Class III obesity with BMI of 50.2 ? Complicating care, weight loss advised 6. Chronic kidney disease stage IV ? Patient baseline creatinine from 11/02/2019. Was 2.25 creatinine on admission was 2.27 will monitor with daily BMPs 7. Obesity hypoventilation syndrome ? Patient had apparently been prescribed BiPAP at night he has however not been compliant counseled on the need to use his BiPAP as prescribed 8. Hypothyroidism - Patient is on levothyroxine home dose continued 9.? Hypertension - Blood pressure controlled, home medications continued with dose adjustment as needed 10. Hepatic steatosis ? Secondary to nonalcoholic fatty liver disease ? Patient to follow-up with GI as 11. Physical deconditioning - Requested for PT OT eval and social security assessor to assist with discharge planning 12. Left inguinal hernia ?Apparently reducible patient to follow-up with primary care physician for to be referred to general surgery 13. Colonic diverticulosis -without acute diverticulitis. 14.. DVT prophylaxis ? On apixaban Time spent in the patient's overall evaluation,decision-making process, review of diagnostic data, adjustment of management, discussion with other providers, nursing nursing and ancillary staff involved in patient's care documentation, 35 Minutes Charges/Coding Visit Charges Inpatient E&M: 98251 [facility] Hosp L2
--- NOTE | 2023-09-24 12:49 | CASEMGMT ---
Patient does not have a Healthcare Power of Orientation & Mobility Specialist or Healthcare Living Will. Per admission questions patient is not interested in documents. Danyell VALLADARES
[2023-09-25] VITALS (7 sets, daily range): BP systolic 125–135; BP diastolic 72–83; PULSE 64–72; RESP 17–18; TEMP 36.3–37; O2SAT 95–97
[2023-09-25] MEDS: 0.9% Saline Lock 10 ML Syringe IV (05:30)
[2023-09-25] MEDS: Cefepime HCl 2 GM in 0.9% Normal Saline (100mL MB+) 100 ML IV ×3 (05:30→20:44)
[2023-09-25] MEDS: Acetaminophen 500 MG Tablet 1000 MG PO ×3 (05:31→20:44)
[2023-09-25] MEDS: Levothyroxine 25 MCG TABLET PO (05:31)
[2023-09-25 06:45] LABS: Absolute Lymphocyte Count 0.72 X10^3/uL (0.83-4.51); Absolute Neutrophil Count 4.6 X10^3/uL (2.0-7.7); Basophil# 0.04 X10^3/uL; Basophil% 0.6 % (0-1); Eosinophil# 0.41 X10^3/uL; Eosinophils% 6.5 % (0-5); Hematocrit 33.2 % (40-54); Hemoglobin 10.3 g/dL (13.0-16.5); Lymphocyte # 0.72 X10^3/ul (0.83-4.51); Lymphocyte % 11.3 % (19-41); Mean Corpuscular Volume 87.1 fL (80-94); Mean Platelet Vol. 9.5 fl (6.2-12.0); Monocyte# 0.57 X10^3/uL; NRBC Flagged by Analyzer 0 % (0-5); Neutrophil # 4.56 X10^3/uL (2.7-7.7); Neutrophil % 71.8 % (47-70); Platelet Count 216 K/mm3 (150-450); RBC Distribution Width CV 15.3 % (11.6-14.6); Red Blood Count 3.81 M/mm3 (4.6-6.2); White Blood Count 6.4 K/mm3 (4.4-11.0)
[2023-09-25 08:45] LABS: Anion Gap 5 (5-15); BUN 31 mg/dL (7-18); BUN/Creat Ratio 13.8 RATIO (10-20); Calcium,Total 8.4 mg/dL (8.5-10.1); Chloride 106 mmol/L (98-107); Creatinine, Serum 2.25 mg/dL (0.70-1.30); EST Glomerular Filtration Rate 33 mL/min (>60); Est Glom Filt Rate - Afr Amer 40 mL/min (>60); Estimated Creatinine Clearance 69.78 ml/min; Glucose 112 mg/dL (74-106); Potassium 4.2 mmol/L (3.5-5.1); Sodium Level 137 mmol/L (136-145)
[2023-09-25] MEDS: APIXABAN 5 MG TABLET PO ×2 (09:06→20:44)
[2023-09-25] MEDS: Metoprolol Tartrate 50 MG Tablet PO ×2 (09:06→20:44)
[2023-09-25] MEDS: Amiodarone 200 MG Tablet PO (09:06)
[2023-09-25] MEDS: Cholecalciferol (Vit D3) 125 MCG CAPSULE (5,000 UNITS) PO (09:06)
[2023-09-25] MEDS: Allopurinol 100 MG Tablet PO (09:06)
[2023-09-25] MEDS: Furosemide 80 MG Tablet PO ×2 (09:06→17:43)
--- NOTE | 2023-09-25 10:36 | PCM.PN.HOSP ---
Reason for Visit Reason for Visit: Diagnoses Unilateral inguinal hernia, without obstruction or gangrene, not specified as recurrent (09/23/23) Other retention of urine (09/23/23) Subjective Subjective Patient seen clinical condition continues to improve.. Awaiting consultations from urology. Patient urine culture still pending. Objective Data Objective Data Vital Signs: Vital Signs Temp Pulse Resp BP Pulse Ox O2 Del Method O2 Flow Rate 98.6 F 69 18 128/83 H 96 Nasal Cannula 3 09/25/23 09:05 09/25/23 09:06 09/25/23 09:05 09/25/23 09:05 09/25/23 09:05 09/25/23 09:05 09/25/23 09:05 Oxygen Flow Rate (L/min) 3 Oxygen Delivery Method Nasal Cannula Weight: 197.6 kg Body Mass Index (BMI) 59.1 Intake & Output: Intake and Output for Last 24 Hours 09/23/23 09/24/23 09/25/23 23:59 23:59 23:59 Intake Total 3045 / 3045 4145 / 4695 1010 / 1010 Output Total 2200 / 2200 6650 / 9450 3550 / 3550 Balance 845 / 845 -2505 / -4755 -2540 / -2540 Lab / Micro Data 09/25/23 06:15 09/25/23 06:15 Labs: Laboratory Results - last 24 hr 09/25/23 06:15: WBC 6.4, RBC 3.81 L, Hgb 10.3 L, Hct 33.2 L, MCV 87.1, MCH 27.0, MCHC 31.0 L, RDW Std Deviation 49.0 H, RDW Coeff of [place]air 15.3 H, Plt Count 216, MPV 9.5, Immature Gran % (Auto) 0.800, Neut % (Auto) 71.8 H, Lymph % (Auto) 11.3 L, [place] % (Auto) 9.0, Eos % (Auto) 6.5 H, Baso % (Auto) 0.6, Absolute Neuts (auto) 4.6, Absolute Lymphs (auto) 0.72 L, Nucleated RBC % 0, Sodium 137, Potassium 4.2, Chloride 106, Carbon Dioxide 26.0, Anion Gap 5, BUN 31 H, Creatinine 2.25 H, Estim Creat Clear Calc 69.78, Est GFR (MDRD) Af Amer 40 L, Est GFR (MDRD) Non-Af 33 L, BUN/Creatinine Ratio 13.8, Glucose 112 H, Calcium 8.4 L Physical Exam Narrative GENERAL: cooperative HEENT: Atraumatic; normocephalic EYES; Anicteric, Normal Conjunctiva NECK; supple, normal thyroid, RESPIRATORY: Diminished to auscultation CARDIOVASCULAR: Regular S1 S2, GI: soft, normoactive bowel sounds, : Left inguinal hernia EXTREMITIES: No edema, no clubbing, MUSCULOSKELETAL: no muscle wasting NEURO: Awake; no lateralizing signs. SKIN: No Rash PSYCH; Flat affect Assessment & Plan Assessment/Plan (1) Acute urinary retention: (2) Inguinal hernia, left: PLAN: Plan 48 M with multiple comorbidities who presented with right flank pain. Patient symptoms started on the morning of his admission. Patient in addition did complain of subjective fever as well as chills and rigors. In view of worsening symptoms patient presented to the emergency department. Imaging studies obtained distended urinary bladder with the Gaines catheter balloon malpositioned in the prostatic urethra; recommend removal or repositioning. Probable mild cystitis. Left greater than right hydronephrosis without nephrolithiasis or obstructing ureteral calculus, concerning for bladder outlet obstruction. Left hydronephrosis likely in part due to the left ureter in a large left inguinal hernia extending into the scrotum in combination with bladder outlet obstruction secondary to malpositioned Gaines catheter balloon. Urinalysis obtained also came back consistent with suspected cystitis antibiotics initiated per protocol after the urologist on-call Dr Ross had been notified patient admitted to regular nursing floor for further management 1. Acute complicated UTI ? Urine and blood culture sent patient started on cefepime ? 09/24/2023;Patient seen admit to significant improvement in overall clinical condition. Cultures sent on admission results pending ? 09/25/2023; patient continues to improve blood and urine culture still pending 2. Obstructive uropathy ? Imaging studies demonstrated Imaging studies obtained distended urinary bladder with the Gaines catheter balloon malpositioned in the prostatic urethra; recommend removal or repositioning. Probable mild cystitis. Left greater than right hydronephrosis without nephrolithiasis or obstructing ureteral calculus, concerning for bladder outlet obstruction. Left hydronephrosis likely in part due to the left ureter in a large left inguinal hernia extending into the scrotum in combination with bladder outlet obstruction secondary to malpositioned Gaines catheter balloon.. Consult placed to Dr Ross with urology ? 09/24/2023; consult from urology pending 3. Paroxysmal A-fib ? Rate controlled on systemic anticoagulation with apixaban 4. Chronic congestive heart failure with reduced ejection fraction ? EF 35% on an echo obtained on 03/04/2022 patient remains euvolemic on torsemide 5. Class III obesity with BMI of 50.2 ? Complicating care, weight loss advised 6. Chronic kidney disease stage IV ? Patient baseline creatinine from 11/02/2019. Was 2.25 creatinine on admission was 2.27 will monitor with daily BMPs 7. Obesity hypoventilation syndrome ? Patient had apparently been prescribed BiPAP at night he has however not been compliant counseled on the need to use his BiPAP as prescribed 8. Hypothyroidism - Patient is on levothyroxine home dose continued 9.? Hypertension - Blood pressure controlled, home medications continued with dose adjustment as needed 10. Hepatic steatosis ? Secondary to nonalcoholic fatty liver disease ? Patient to follow-up with GI as 11. Physical deconditioning - Requested for PT OT eval and social work specialist to assist with discharge planning 12. Left inguinal hernia ?Apparently reducible patient to follow-up with primary care physician for to be referred to general surgery 13. Colonic diverticulosis -without acute diverticulitis. 14.. DVT prophylaxis ? On apixaban Time spent in the patient's overall evaluation,decision-making process, review of diagnostic data, adjustment of management, discussion with other providers, nursing nursing and ancillary staff involved in patient's care documentation, 36 Minutes Charges/Coding Visit Charges Inpatient E&M: 24317 Subs Hosp L2
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
[2023-09-26 02:30] VITALS: BP 127/77; PULSE 66; RESP 14; TEMP 36.5; O2SAT 99
[2023-09-26 04:12] VITALS: BMI 59.2
[2023-09-26] MEDS: Levothyroxine 25 MCG TABLET PO (05:26)
[2023-09-26] MEDS: Acetaminophen 500 MG Tablet 1000 MG PO (05:26)
[2023-09-26] MEDS: Cefepime HCl 2 GM in 0.9% Normal Saline (100mL MB+) 100 ML IV (05:26)
[2023-09-26 06:26] LABS: Absolute Lymphocyte Count 0.82 X10^3/uL (0.83-4.51); Absolute Neutrophil Count 3.7 X10^3/uL (2.0-7.7); Basophil# 0.03 X10^3/uL; Basophil% 0.5 % (0-1); Eosinophil# 0.36 X10^3/uL; Eosinophils% 6.6 % (0-5); Hematocrit 35.5 % (40-54); Hemoglobin 11.3 g/dL (13.0-16.5); Lymphocyte # 0.82 X10^3/ul (0.83-4.51); Mean Corp Hgb Conc 31.8 g/dL (32-36); Mean Corpuscular Hgb 27.4 pg (27.0-32.0); Mean Corpuscular Volume 86.2 fL (80-94); Mean Platelet Vol. 9.2 fl (6.2-12.0); Monocyte# 0.51 X10^3/uL; Monocyte% 9.3 % (0-10); NRBC Flagged by Analyzer 0 % (0-5); Neutrophil % 67.5 % (47-70); Platelet Count 224 K/mm3 (150-450); RBC Distribution Width CV 15.2 % (11.6-14.6); RBC Distribution Width SD 48.6 fl (35.1-43.9); Red Blood Count 4.12 M/mm3 (4.6-6.2); White Blood Count 5.5 K/mm3 (4.4-11.0)
[2023-09-26 06:50] LABS: Anion Gap 7 (5-15); BUN 30 mg/dL (7-18); BUN/Creat Ratio 15.1 RATIO (10-20); Calcium,Total 8.5 mg/dL (8.5-10.1); Chloride 104 mmol/L (98-107); Creatinine, Serum 1.99 mg/dL (0.70-1.30); EST Glomerular Filtration Rate 38 mL/min (>60); Est Glom Filt Rate - Afr Amer 46 mL/min (>60); Estimated Creatinine Clearance 79.05 ml/min; Glucose 106 mg/dL (74-106); Potassium 4.3 mmol/L (3.5-5.1); Sodium Level 137 mmol/L (136-145)
[2023-09-26 07:34] VITALS: O2SAT 95
[2023-09-26 08:06] VITALS: BP 102/53; PULSE 62
[2023-09-26] MEDS: APIXABAN 5 MG TABLET PO (08:06)
[2023-09-26] MEDS: Metoprolol Tartrate 50 MG Tablet PO (08:06)
[2023-09-26] MEDS: Allopurinol 100 MG Tablet PO (08:07)
[2023-09-26] MEDS: Cholecalciferol (Vit D3) 125 MCG CAPSULE (5,000 UNITS) PO (08:07)
[2023-09-26] MEDS: Furosemide 80 MG Tablet PO (08:07)
[2023-09-26] MEDS: Amiodarone 200 MG Tablet PO (08:07)
--- NOTE | 2023-09-26 09:17 | PCM.DC.SUM ---
Providers Date of Admission: 09/23/23 Date of Discharge: 09/26/23 Primary Care Physician: Dr. Demarco Wheatley MD Consultations 09/23/23 15:58 Consult: Urology Routine Consulting Provider: Eliceo Ross Reason for Consult: Acute urinary retention EMERGENT Consult: No MD Notified: Yes Date Notified: 09/23/23 Time Notified: 08:00 Method of Notification: ED Physician Initiated Reason For Visit: ACUTE COMPLICATED UTI Diagnosis Discharge Diagnosis (1) Acute urinary retention: Status: Acute Code(s): R33.8 - Other retention of urine (2) Inguinal hernia, left: Status: Acute Code(s): K40.90 - Unilateral inguinal hernia, without obstruction or gangrene, not specified as recurrent Plan 48 M with multiple comorbidities who presented with right flank pain. Patient symptoms started on the morning of his admission. Patient in addition did complain of subjective fever as well as chills and rigors. In view of worsening symptoms patient presented to the emergency department. Imaging studies obtained distended urinary bladder with the Gaines catheter balloon malpositioned in the prostatic urethra; recommend removal or repositioning. Probable mild cystitis. Left greater than right hydronephrosis without nephrolithiasis or obstructing ureteral calculus, concerning for bladder outlet obstruction. Left hydronephrosis likely in part due to the left ureter in a large left inguinal hernia extending into the scrotum in combination with bladder outlet obstruction secondary to malpositioned Gaines catheter balloon. Urinalysis obtained also came back consistent with suspected cystitis antibiotics initiated per protocol after the urologist on-call Dr Ross had been notified patient admitted to regular nursing floor for further management 1. Acute complicated UTI ? Urine and blood culture sent patient started on cefepime ? 09/24/2023;Patient seen admit to significant improvement in overall clinical condition. Cultures sent on admission results pending ? 09/25/2023; patient continues to improve blood and urine culture still pending Serratia marcescens Roscoe Count 11,000-25,000 CFU/mL Organism 2 Enterococcus gallinarum Roscoe Count 80,000-100,000 CFU/mL Organism 3 GNR lactose process safety manager Roscoe Count <1000 CFU/mL Sensitivities reviewed patient discharged on Cipro. 2. Obstructive uropathy ? Imaging studies demonstrated Imaging studies obtained distended urinary bladder with the Gaines catheter balloon malpositioned in the prostatic urethra; recommend removal or repositioning. Probable mild cystitis. Left greater than right hydronephrosis without nephrolithiasis or obstructing ureteral calculus, concerning for bladder outlet obstruction. Left hydronephrosis likely in part due to the left ureter in a large left inguinal hernia extending into the scrotum in combination with bladder outlet obstruction secondary to malpositioned Gaines catheter balloon.. Consult placed to Dr Ross with urology ? 09/24/2023; consult from urology pending ? 09/26/2023 patient was seen in consultation by Dr Ross with urology notes and recommendations reviewed 3. Paroxysmal A-fib ? Rate controlled on systemic anticoagulation with apixaban 4. Chronic congestive heart failure with reduced ejection fraction ? EF 35% on an echo obtained on 03/04/2022 patient remains euvolemic on torsemide 5. Class III obesity with BMI of 50.2 ? Complicating care, weight loss advised 6. Chronic kidney disease stage IV ? Patient baseline creatinine from 11/02/2019. Was 2.25 creatinine on admission was 2.27 will monitor with daily BMPs 7. Obesity hypoventilation syndrome ? Patient had apparently been prescribed BiPAP at night he has however not been compliant counseled on the need to use his BiPAP as prescribed 8. Hypothyroidism - Patient is on levothyroxine home dose continued 9.? Hypertension - Blood pressure controlled, home medications continued with dose adjustment as needed 10. Hepatic steatosis ? Secondary to nonalcoholic fatty liver disease ? Patient to follow-up with GI as 11. Physical deconditioning - Requested for PT OT eval and health social work professor to assist with discharge planning 12. Left inguinal hernia ?Apparently reducible patient to follow-up with primary care physician for to be referred to general surgery 13. Colonic diverticulosis -without acute diverticulitis. 14.. DVT prophylaxis ? On apixaban Time spent in the patient's overall evaluation,decision-making process, review of diagnostic data, adjustment of management, discussion with other providers, nursing nursing and ancillary staff involved in patient's care documentation, 36 Minutes Medications at Discharge Home Medications apixaban 5 mg tablet (Eliquis) 5 mg PO BID BLOOD THINNER #90 tabs 03/07/22 torsemide 20 mg tablet 40 mg PO BID EDEMA 05/31/22 albuterol sulfate 90 mcg/actuation aerosol inhaler 1 - 2 puff inhalation Q4H PRN SHORTNESS OF BREATH 09/23/23 allopurinol 100 mg tablet 100 mg PO DAILY GOUT 09/23/23 amiodarone 200 mg tablet 200 mg PO DAILY AFIB 09/23/23 cholecalciferol (vitamin D3) 125 mcg (5,000 unit) capsule 125 mcg PO DAILY SUPPLEMENT 09/23/23 fluticasone propionate 50 mcg/actuation nasal spray,suspension 2 spray intranasal DAILY PRN NASAL CONGESTION 09/23/23 levothyroxine 25 mcg tablet 25 mcg PO DAILY THYROID 09/23/23 metoprolol tartrate 50 mg tablet 50 mg PO BID BLOOD PRESSURE 09/23/23 ciprofloxacin HCl 250 mg tablet (Cipro) 250 mg PO BID #20 tabs 09/26/23 Physical Exam Narrative GENERAL: cooperative HEENT: Atraumatic; normocephalic EYES; Anicteric, Normal Conjunctiva NECK; supple, normal thyroid, RESPIRATORY: Diminished to auscultation CARDIOVASCULAR: Regular S1 S2, GI: soft, normoactive bowel sounds, : Left inguinal hernia EXTREMITIES: No edema, no clubbing, MUSCULOSKELETAL: no muscle wasting NEURO: Awake; no lateralizing signs. SKIN: No Rash PSYCH; Flat affect Weight / BMI Weight Weight: 198.2 kg Body Mass Index (BMI) 59.2 ABG / Lab / Microbiology Data 09/26/23 05:22 09/26/23 05:22 Laboratory: Laboratory Results - last 24 hr 09/26/23 05:22: WBC 5.5, RBC 4.12 L, Hgb 11.3 L, Hct 35.5 L, MCV 86.2, MCH 27.4, MCHC 31.8 L, RDW Std Deviation 48.6 H, RDW Coeff of [place] 15.2 H, Plt Count 224, MPV 9.2, Immature Gran % (Auto) 1.100 H, Neut % (Auto) 67.5, Lymph % (Auto) 15.0 L, Charlton % (Auto) 9.3, Eos % (Auto) 6.6 H, Baso % (Auto) 0.5, Absolute Neuts (auto) 3.7, Absolute Lymphs (auto) 0.82 L, Nucleated RBC % 0, Sodium 137, Potassium 4.3, Chloride 104, Carbon Dioxide 26.0, Anion Gap 7, BUN 30 H, Creatinine 1.99 H, Estim Creat Clear Calc 79.05, Est GFR (MDRD) Af Amer 46 L, Est GFR (MDRD) Non-Af 38 L, BUN/Creatinine Ratio 15.1, Glucose 106, Calcium 8.5 Microbiology: Microbiology 09/24/23 12:17 Urine Catheter - Gaines Urine Culture - Preliminary Serratia marcescens Enterococcus gallinarum GNR lactose process safety manager 09/23/23 15:20 Blood Culture (Wb) - Arm Left Blood Culture - Preliminary No growth in 48 hours. 09/23/23 15:00 Blood Culture (Wb) - Arm Right Blood Culture - Preliminary No growth in 48 hours. D/C Instructions Discharge Diet: No restrictions Discharge Activity: Return to Normal Activity Call your doctor if you observe: Fever of 101 or Higher, Shortness of breath, Fainting spells and Chest pain Meaningful Use Info Meaningful Use Meaningful Use Diagnoses (Choose all that apply): None applicable Ischemic Stroke Statin Dosing Therapy Reference: STATIN DOSE THERAPY REFERENCE: * Patients > 75 years receive moderate or high dose statin therapy. * Patients 75 years or YOUNGER should receive HIGH intensity statin dose unless contraindicated. You will be required to document reason for non-treatment if statin daily dose does not meet guidelines. HIGH DOSE STATIN THERAPY DAILY Atorvastatin > than or = to 40 mg Rosuvastatin > than or = to 20 mg Amlodipine + Atorvastatin > than or = to 2.5/40 mg Ezetimibe + Simvastatin 10/80 mg Simvastatin 80mg Discharge Plan Admission Admit Date/Time: 09/23/23 10:01 Attending Provider: Martin Segura Primary Care Provider: Demarco Wheatley Consulting Providers: Eliceo Ross Discharge Orders/Prescriptions Prescriptions: New ciprofloxacin HCl [Cipro] 250 mg tablet 250 mg PO BID Qty: 20 0RF Continued torsemide 20 mg tablet 40 mg PO BID Eliquis 5 mg Tablet 5 mg PO BID Qty: 90 0RF allopurinol 100 mg tablet 100 mg PO DAILY amiodarone 200 mg tablet 200 mg PO DAILY cholecalciferol (vitamin D3) 125 mcg (5,000 unit) capsule 125 mcg PO DAILY fluticasone propionate 50 mcg/actuation spray,suspension 2 spray INTRANASAL DAILY PRN (Reason: NASAL CONGESTION ) levothyroxine 25 mcg tablet 25 mcg PO DAILY metoprolol tartrate 50 mg tablet 50 mg PO BID albuterol sulfate 90 mcg/actuation HFA aerosol inhaler 1 - 2 puff inhalation Q4H PRN (Reason: SHORTNESS OF BREATH ) Referrals / Follow Up: Demarco Wheatley MD [Primary Care Provider] - Disposition Disposition (needs filled in before D/C Order can be placed): Home, Self Care Charges/Coding Visit Charges Inpatient E&M: 88480 Disch Hosp >30min
[2023-09-26 09:18] VITALS: BP 102/53; PULSE 62; RESP 18; TEMP 36.6; O2SAT 95
--- NOTE | 2023-09-26 09:40 | CASEMGMT ---
Order for pt DC placed. VALERIANO CM to pt room at this time. Pt states that he does not need HHC or OP therapy. Pt states that he feels safe going home today. Pt is currently on RA and states that he is comfortable. Pt states I only wear it as needed. Pt educated about current Rx. Pt states that he does not have a portable tank with him and also states that he does not need it going home. Pt is currently 96% on RA. Dr. Segura states that the pt does not need oxygen at this time. Pt denies further questions or concerns.
--- NOTE | 2023-09-26 10:39 | PHA.DC_ITS ---
Pharmacy [facility] has performed discharge medication reconciliation and counseling for this patient. The patient's discharge medication list was reviewed for discrepancies and discrepancies were resolved. The patient was counseled on the following discharge medications and changes in medications for homegoing were reviewed. 1. CIPROFLOXACIN The Reason for Use, instructions for use, and potential side effects were reviewed for all new medications. The patient's questions regarding all of their medications were answered. The patient was able to verbally demonstrate an understanding of their discharge medications. The patient was counselled by Rafita Phoenix PharmD Candidate Medications at Discharge Home Medications apixaban 5 mg tablet (Eliquis) 5 mg PO BID BLOOD THINNER #90 tabs 03/07/22 torsemide 20 mg tablet 40 mg PO BID EDEMA 05/31/22 albuterol sulfate 90 mcg/actuation aerosol inhaler 1 - 2 puff inhalation Q4H PRN SHORTNESS OF BREATH 09/23/23 allopurinol 100 mg tablet 100 mg PO DAILY GOUT 09/23/23 amiodarone 200 mg tablet 200 mg PO DAILY AFIB 09/23/23 cholecalciferol (vitamin D3) 125 mcg (5,000 unit) capsule 125 mcg PO DAILY SUPPLEMENT 09/23/23 fluticasone propionate 50 mcg/actuation nasal spray,suspension 2 spray intranasal DAILY PRN NASAL CONGESTION 09/23/23 levothyroxine 25 mcg tablet 25 mcg PO DAILY THYROID 09/23/23 metoprolol tartrate 50 mg tablet 50 mg PO BID BLOOD PRESSURE 09/23/23 ciprofloxacin HCl 250 mg tablet (Cipro) 250 mg PO BID #20 tabs 09/26/23
== END 2023-09-26 10:52 | disposition home or self-care (01) | DRG 466 ==
LOC: ED 06:47 → PCU 10:45
PROVIDERS: Admitting Provider Internal Medicine; Emergency Provider Emergency Medicine; PCP Internal Medicine; Visit Provider Internal Medicine
DX: T83.511A Infection and inflammatory reaction due to indwelling urethral catheter, initial encounter (principal); I13.0 Hypertensive heart and chronic kidney disease with heart failure and stage 1 through stage 4 chronic kidney disease, or unspecified chronic kidney disease; E66.2 Morbid (severe) obesity with alveolar hypoventilation; I50.22 Chronic systolic (congestive) heart failure; K76.0 Fatty (change of) liver, not elsewhere classified; N18.4 Chronic kidney disease, stage 4 (severe); Z68.43 Body mass index [BMI] 50.0-59.9, adult; I48.0 Paroxysmal atrial fibrillation; E03.9 Hypothyroidism, unspecified; T83.021A Displacement of indwelling urethral catheter, initial encounter; K40.90 Unilateral inguinal hernia, without obstruction or gangrene, not specified as recurrent; N30.90 Cystitis, unspecified without hematuria; N32.0 Bladder-neck obstruction; Z79.899 Other long term (current) drug therapy; Z79.01 Long term (current) use of anticoagulants; Z79.51 Long term (current) use of inhaled steroids; Z87.891 Personal history of nicotine dependence; X58.XXXA Exposure to other specified factors, initial encounter
CPT/HCPCS: 36415; 74176; 80048; 81001; 83735; 84100; 85025; 87040; 87077; 87086; 87088; 87186; 94668; 99283; J7030; A4216; J2405

== ENCOUNTER 2024-05-20 12:20 | Day surgery (SDC) | payer OTHER, SELFPAY ==
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
--- NOTE | 2024-05-11 07:51 | EKG12_ITS ---
Test Reason : PREOP Blood Pressure : */* mmHG Vent. Rate : 69 BPM Atrial Rate : 69 BPM P-R Int : 158 ms QRS Dur : 114 ms QT Int : 442 ms P-R-T Axes : 13 9 39 degrees QTcB Int : 473 ms Normal sinus rhythm Low voltage QRS Borderline ECG Confirmed by SAROJ IGLESIAS, JUANY ([id number]), video effects editor LAXMI CARUSO ([id number]) on 05/11/2024 11:02:33 AM Referred By: Eliceo Ross Confirmed By: JUANY KYLE MD
[2024-05-11 08:02] LABS: Hematocrit 39.2 % (40-54); Hemoglobin 12.4 g/dL (13.0-16.5); Mean Corp Hgb Conc 31.6 g/dL (32-36); Mean Corpuscular Hgb 27.7 pg (27.0-32.0); Mean Corpuscular Volume 87.5 fL (80-94); Mean Platelet Vol. 9.2 fl (6.2-12.0); Platelet Count 332 K/mm3 (150-450); RBC Distribution Width CV 16.5 % (11.6-14.6); Red Blood Count 4.48 M/mm3 (4.6-6.2); White Blood Count 6.8 K/mm3 (4.4-11.0)
[2024-05-11 08:33] LABS: Anion Gap 7 (5-15); BUN 34 mg/dL (7-18); BUN/Creat Ratio 15.2 RATIO (10-20); Calcium,Total 8.7 mg/dL (8.5-10.1); Chloride 100 mmol/L (98-107); Creatinine, Serum 2.24 mg/dL (0.70-1.30); EST Glomerular Filtration Rate 33 mL/min (>60); Est Glom Filt Rate - Afr Amer 40 mL/min (>60); Glucose 212 mg/dL (74-106); Potassium 3.7 mmol/L (3.5-5.1); Sodium Level 137 mmol/L (136-145)
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
[2024-05-20 10:29] VITALS: BP 143/82; PULSE 70; RESP 18; TEMP 36.4; O2SAT 98; BMI 62.6
[2024-05-20] MEDS: 0.9% Normal Saline (1000mL) 1,000 ML 15 ML IV (11:06)
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
[2024-05-20 12:22] VITALS: BP 143/82; PULSE 70; RESP 18; TEMP 36.4; O2SAT 98
== END 2024-05-20 22:00 | disposition home or self-care (01) ==
PROVIDERS: Anesthesiology; PCP Internal Medicine; Referring Provider Urology; Visit Provider Urology
DX: Z01.818 Encounter for other preprocedural examination (principal); Z01.810 Encounter for preprocedural cardiovascular examination; Z53.9 Procedure and treatment not carried out, unspecified reason
CPT/HCPCS: 36415; 80048; 84443; 85027; 93005; C1769